=== PATIENT | male | born 1960 | race Caucasian/White ===

== ENCOUNTER 2022-11-14 07:30 | Observation (INO) ==
[2022-11-14] MEDS ORDERED: ANCEF VIAL 1 GRAM ONE (07:38)
[2022-11-14] MEDS ORDERED: NS 100 ML IV 100 ML ONE (07:38)
[2022-11-14] MEDS ORDERED: LR 1,000 ML IV 1,000 ML IV ONE ×2 (07:38→09:40)
[2022-11-14] MEDS ORDERED: HEPARIN SODIUM IN D5W 75,000 UNITS/1,500 ML BAG ONE (07:43)
[2022-11-14] MEDS ORDERED: MARCAINE 0.5% ONE (07:43)
[2022-11-14] MEDS ORDERED: VERSED ONE (07:55)
[2022-11-14] MEDS ORDERED: FENTANYL VIAL INJ 250 mcg ONE (07:55)
[2022-11-14] MEDS ORDERED: QUELICIN (OR ANECTINE) ONE (07:56)
[2022-11-14] MEDS ORDERED: ZEMURON 100 MG VIAL ONE ×2 (07:56→10:59)
[2022-11-14] MEDS ORDERED: DIPRIVAN VIAL 20 ML ONE (07:56)
[2022-11-14] MEDS ORDERED: DUONEB 0.5 MG/3 MG (3 mL) NEB ONE (07:57)
[2022-11-14] MEDS ORDERED: HEPARIN SODIUM INJ 5000 UNITS ONE ×3 (07:58→11:39)
[2022-11-14] MEDS ORDERED: NS 500 ML IV 500 ML IV ONE (08:07)
[2022-11-14 08:11] VITALS: BMI 22.1
[2022-11-14] MEDS ORDERED: SUPRANE ONE (08:17)
[2022-11-14 08:28] LABS: BASOPHILS # (AUTO) 0.1 X10^3/uL (0.0-0.1); BASOPHILS % (AUTO) 0.8 % (0.2-1.0); EOSINOPHILS # (AUTO) 0.1 x10^3/uL (0.0-0.2); EOSINOPHILS % (AUTO) 1.9 % (0.9-2.9); HEMATOCRIT 36.8 % (42.0-54.0); HEMOGLOBIN 12.6 g/dL (13.5-18.0); LYMPHOCYTES # (AUTO) 3.7 X10^3/uL (1.3-2.9); LYMPHOCYTES % (AUTO) 50.6 % (21.0-51.0); MEAN CORPUSCULAR HEMOGLOBIN 32.2 pg (27.0-34.0); MEAN CORPUSCULAR HGB CONC 34.1 g/dL (33.0-35.0); MEAN CORPUSCULAR VOLUME 94.3 fL (80.0-100.0); MEAN PLATELET VOLUME 9.1 fL (7.4-11.0); MONOCYTES # (AUTO) 0.6 x10^3/uL (0.3-0.8); MONOCYTES % (AUTO) 8.4 % (0.0-13.0); NEUTROPHILS # (AUTO) 2.8 x10^3/uL (2.2-4.8); NEUTROPHILS % (AUTO) 38.3 % (42.0-75.0); RED CELL DISTRIBUTION WIDTH 15.4 % (11.6-16.5); WHITE BLOOD COUNT 7.3 X10^3/uL (3.6-10.0)
[2022-11-14 08:29] LABS: BLOOD UREA NITROGEN 12 mg/dL (7-18); CALCIUM 9.2 mg/dL (8.5-10.1); CARBON DIOXIDE 26.7 mmol/L (21-32); CHLORIDE 103 mmol/L (98-107); CREATININE 0.91 mg/dL (0.70-1.30); SODIUM 137 mmol/L (136-145); eGFR NON BLACK RACES > 60 (>60)
[2022-11-14 08:42] LABS: ALANINE AMINOTRANSFERASE 41 Units/L (12-78); ALBUMIN 3.8 g/dL (3.4-5.0); ALKALINE PHOSPHATASE 115 Units/L (46-116); ASPARTATE AMINO TRANSFERASE 35 Units/L (15-37); TOTAL PROTEIN 7.2 g/dL (6.4-8.2)
[2022-11-14] MEDS ORDERED: DILAUDID INJ ONE ×2 (09:44→13:58)
[2022-11-14] MEDS ORDERED: BRIDION ONE (12:04)
[2022-11-14] MEDS ORDERED: PROTAMINE SULFATE 50 MG VIAL ONE (12:19)
[2022-11-14] MEDS ORDERED: ZOFRAN INJ 4 MG VIAL ONE (12:36)
[2022-11-14] MEDS ORDERED: EPHEDRINE SULFATE INJ ONE (12:41)
[2022-11-14] MEDS ORDERED: BENADRYL INJ 50 MG VIAL IVP PRN (12:48)
[2022-11-14] MEDS ORDERED: ZOFRAN INJ 4 MG VIAL IVP PRN (12:48)
[2022-11-14] MEDS ORDERED: BARHEMSYS INJ IVP PRN (12:48)
[2022-11-14] MEDS ORDERED: REGLAN INJ 10 MG VIAL IVP PRN (12:48)
[2022-11-14] MEDS ORDERED: DILAUDID INJ IVP PRN ×2 (12:48→13:37)
--- NOTE | 2022-11-14 13:27 | OR.IMMED ---
IMMEDIATE POST-OP NOTE Immediate Post-Op Note Pre-Op Diagnosis: Severe aortic infrarenal stenosis Post-Op Diagnosis: same Procedure: B/l iliac stents to raise level of bifurcation. Description of Procedure: see operative summary Surgeon/Pharmacy Technician Trainee: Malathi Findings: Patient has had left iliac stent and right SFA atherectomy and drug coated balloon angioplasty recently. Noted on review of CTA by me to have 75% stenosis of the infrarenal aorta and b/l common ilac artery aneurysms. Planned aorto-biiliac endograft placement . In order to get enough room to open the gate for the contralateral iliac artery we would need to take the graft over and covering the left renal and planned chimney stent in the left renal artery from the left arm. Could easily get wire across the left renal artery but could not get it to stay despite multiple maneuvers. Opted to place two covered iliac stents resetting the iliac bifrcation and addressing the infrarenal aortic stenosis, Estimated Blood Loss: 600 cc Complications: none Post Hospital Plans and Medications: to floor for observation, check CBC later. Hopefully home tomorrow. Final Diagnosis: as above
[2022-11-14] MEDS ORDERED: REFLEX: PROVENTIL NEB & PulmiCORT NEB~ NEB SCH (13:45)
[2022-11-14] MEDS: LR 1,000 ML IV 1,000 ML IV SCH ×2 (14:00→21:05)
[2022-11-14] MEDS ORDERED: NS 1,000 ML IV 1,000 ML IV ONE (14:21)
[2022-11-14] MEDS ORDERED: NS 1,000 ML IV 1,000 ML ONE (14:23)
[2022-11-14 14:45] LABS: BASOPHILS % (AUTO) 0.3 % (0.2-1.0); EOSINOPHILS % (AUTO) 0.2 % (0.9-2.9); HEMATOCRIT 29.2 % (42.0-54.0); HEMOGLOBIN 9.9 g/dL (13.5-18.0); LYMPHOCYTES # (AUTO) 1.7 X10^3/uL (1.3-2.9); LYMPHOCYTES % (AUTO) 11.7 % (21.0-51.0); MEAN CORPUSCULAR HEMOGLOBIN 31.9 pg (27.0-34.0); MEAN CORPUSCULAR HGB CONC 33.8 g/dL (33.0-35.0); MEAN CORPUSCULAR VOLUME 94.4 fL (80.0-100.0); MEAN PLATELET VOLUME 8.3 fL (7.4-11.0); MONOCYTES # (AUTO) 0.7 x10^3/uL (0.3-0.8); MONOCYTES % (AUTO) 5.1 % (0.0-13.0); NEUTROPHILS # (AUTO) 11.7 x10^3/uL (2.2-4.8); NEUTROPHILS % (AUTO) 82.7 % (42.0-75.0); RED BLOOD COUNT 3.09 X10^6/uL (4.7-6.0); RED CELL DISTRIBUTION WIDTH 15.5 % (11.6-16.5); WHITE BLOOD COUNT 14.1 X10^3/uL (3.6-10.0)
[2022-11-14] MEDS: DUONEB 0.5 MG/3 MG (3 mL) NEB SCH ×2 (17:20→21:00)
[2022-11-14] MEDS: PERCOCET TAB 5/325 MG PO PRN (18:58)
[2022-11-14] MEDS: PULMICORT NEB TX 0.5 MG NEB SCH (21:00)
[2022-11-14] MEDS: XARELTO PO SCH (21:02)
[2022-11-14] MEDS: DILANTIN CAP 100 MG EXT REL PO SCH (21:02)
[2022-11-14] MEDS: VASOTEC TAB 5 MG PO SCH ×2 (21:03→21:04)
--- NOTE | 2022-11-15 01:55 | DR.OPNOTE ---
OP NOTE Pre-Op Diagnosis: 75 % infrarenal aortic stenosis, b/l common iliac artery aneurysms Post-Op Diagnosis: same Procedure Date Date Of Procedure: 11/14/22 Procedure: PROCEDURE: Diagnostic aortogram , selective catheterization of the left renal artery , bilateral common iliac artery stenting with covered stents NARRATIVE: The patient was taken to the operative suite and placed in the supine position. Both groins, the entire abdomen and left arm were prepped and draped in sterile fashion. General endotracheal anesthesia was induced .Time out for the procedure obtained. Vertical incision made in the right groin and dissection carried down to the common femoral artery which was dissected free sharply. Vessel loops placed around the common femoral artery , superficial femoral artery and profunda femoris arteries . A purse string of 5-0 Prolene placed in the right common femoral artery. Verticle incision made in the left groin and dissection carried down identifying the artery. Dissection carried out and vessels loops placed around the common femoral artery proximally, the superficial femoral and profunda femoris arteries on the left . Purse string suture of 5-0 Prolene suture placed in the common femoral artery on the left side. 16 gauge needle placed through the purse string site of the left common femoral artery and a 0.012 inch guide wire placed. Micro sheath placed over the guide wire into the left femoral artery . Small white guide wire exchanged for a 0.035 inch Advantage glide wire and the micro sheath exchanged for a 5 Fr sheath. Fluoroscopy revealed the guide wire going to a lateral branch off of the left femoral artery. I tried to get it back into the main branch of the iliac artery but was unsuccessful. At this point a purse string suture of 5-0 Prolene placed in the left profunda femoris and a 16 gauge needle placed through the purse string and a 0.012 guide wire placed . Micro sheath placed over this guidewire into the left profunda femoris artery into the left femoral artery . Small wire exchanged for a 0.035 inch Advantage glide wire and the micro sheath exchanged for a 5 Fr sheath . Fluoroscopy confirmed that the wire was within the left common femoral artery and into the aorta. Needle placed through the purse string suture on the right side and a 0.012 inch guide wire placed. Micro sheath placed over the guide wire and the small guide wire exchanged for a 0.035 inch Advantage glide wire and the micro sheath exchanged for a 5 Fr sheath . Patient given 5000 units of intravenous heparin. Additional 3000 units of heparin was given at one hour and again at the 2nd hour . Diagnostic aortogram performed demonstrating the common iliac artery aneurysms and both renal arteries which were marked on the screen. Ultrasound used to identify the left brachial artery above the elbow. The skin overlying it infiltrated with 0.5% Marcaine. Ultrasound used to guide puncture of the left brachial artery and a 0.012 inch guide wire placed . Incision made over the guide wire at the skin edge with a number 11 knife blade and micro sheath placed over the wire into the left brachial artery . The small wire exchange for a 0.035 inch Advantage glide wire and the micro sheath exchanged for a 5 Fr sheath. Fluoroscopy demonstrated the guide wire and guided it down the descending aorta. The 5 Fr sheath was exchanged for a 7 Fr destination sheath which was parked above the renal arteries. Using the 0.035 inch Advantage guidewire and a curved Gamaliel catheter we were able to get the wire in the left renal artery . We tried multiple times to remove the sheath and leave the wire or place the 7 FR sheath in the orifice of the left renal artery but the wire kept flipping out. This was despite multiple maneuvers and multiple attempts. At this point we elected to place bilateral iliac covered stents to resolve the majority of the distal aortic stenosis and cover the iliac artery aneurysms. We exchanged the guide wires in each groin with 0.035 inch Amplatz wires up each iliac artery . Over these wires we placed 16 mm x 16 mm by 93 mm covered Endurant covered stents and centered them above the law natural iliac bifurcation to create a new bifurcation. Both devices removed from the iliac arteries and exchanged over the wire for a 15 Iranian sheath in the right femoral artery and a 12 Fr sheath in the left femoral artery . Reliant balloons placed on each side over the wires and inflated simultaneously and sequentially. Omni catheter place up on the left side and aortogram showed excellent results with no leak. All wires removed . The right sheath was removed and the right common femoral artery clamped with an angled Debakey clamp and back bleeding controlled with the vessel loops. Purse sting suture tied in place . Clamp removed and there was no additional bleeding . The two sheaths on the left removed and the artery clamped and purse string sutures tied into place . Clamp removed and there was no additional bleeding. Both groins irrigated . Doppler demonstrated biphasic flow in each superficial femoral artery. Each groin incision closed with two running layers of 2- Vicryl suture and the skin on each side closed with skin valeri. The sheath in the left brachial artery removed and bleeding controlled with a tibial band to be sequentially deflated in the PACU. Patient extubated and taken to the PACU in good condition. Type of Anesthesia: General Anesthetic w/ETT Findings: 75 % stenosis infrarenal aortic stenosis, bilateral common iliac artery aneurysms. Initial plan was to perform aorto- biiliac endograft repair but in order to cover this aortic stenosis and open the gate for the contralateral iliac artery the endograft would have to be taken over the left renal artery and we were planning placement of "chimney" extension in the left renal artery extending superiorly . We could place a wire easily in the left renal artery but it kept flipping out of the artery despite multiple attempts and maneuvers . So, instead we placed two kissing iliac stents covering the bilateral iliac aneurysms and creating a new " iliac bifurcation" and resolved the majority of the infrarenal aortic stenosis. Type of Fluids Used:: Lactated Ringers Total Amount of Fluid Infused:: 1700 cc Urine output: 400 cc EBL: 600 cc Hardware: B/l iliac artery Medtronic [id number] mm covered stents Complications:: none Needle/Sponge Count:: correct Disposition/Condition: Pt. tolerated procedure without difficulty. Extubated in the OR and taken to PACU in stable condition.
[2022-11-15 05:19] LABS: BASOPHILS % (AUTO) 0.1 % (0.2-1.0); HEMATOCRIT 23.6 % (42.0-54.0); HEMOGLOBIN 8.2 g/dL (13.5-18.0); LYMPHOCYTES # (AUTO) 1.9 X10^3/uL (1.3-2.9); LYMPHOCYTES % (AUTO) 15.9 % (21.0-51.0); MEAN CORPUSCULAR HGB CONC 34.7 g/dL (33.0-35.0); MEAN CORPUSCULAR VOLUME 92.4 fL (80.0-100.0); MEAN PLATELET VOLUME 8.6 fL (7.4-11.0); MONOCYTES # (AUTO) 1.1 x10^3/uL (0.3-0.8); MONOCYTES % (AUTO) 9.1 % (0.0-13.0); NEUTROPHILS # (AUTO) 8.9 x10^3/uL (2.2-4.8); NEUTROPHILS % (AUTO) 74.9 % (42.0-75.0); RED BLOOD COUNT 2.56 X10^6/uL (4.7-6.0); RED CELL DISTRIBUTION WIDTH 15.3 % (11.6-16.5); WHITE BLOOD COUNT 11.9 X10^3/uL (3.6-10.0)
[2022-11-15] MEDS: LR 1,000 ML IV 1,000 ML IV SCH (05:47)
[2022-11-15] MEDS ORDERED: SYNTHROID 125 mcg TAB PO SCH (06:30)
[2022-11-15 08:33] VITALS: BP 95/57
[2022-11-15] MEDS ORDERED: LIPITOR TAB 40 MG PO SCH (09:00)
[2022-11-15] MEDS ORDERED: ASPIRIN EC 81 MG PO SCH (09:00)
[2022-11-15] MEDS: PULMICORT NEB TX 0.5 MG NEB SCH (09:26)
[2022-11-15] MEDS: DUONEB 0.5 MG/3 MG (3 mL) NEB SCH (09:26)
[2022-11-15] MEDS: VASOTEC TAB 5 MG PO SCH (10:15)
[2022-11-15] MEDS: XARELTO PO SCH (10:17)
[2022-11-15] MEDS: DILANTIN CAP 100 MG EXT REL PO SCH (10:17)
--- NOTE | 2022-11-15 10:39 | W.DIS.FURT ---
Summary of Discharge Discharge Summary of Date Date of Exam: 11/15/22 Admission Date Date of Admission: 11/14/22 Admission Diagnosis Hospital Course: 62 year old male with significant peripheral vascular disease who had left common iliac stenting of complete left common iliac occlusion and right superficial femoral atherectomy and drug coated balloon angioplasty of the right superficial femoral artery . These were done prior to approaching his severe, 75% stenosis of the distal infrarenal aorta.. Yesterday he was taken to the operating suite where he underwent bilateral kissing covered iliac artery stents placed in order to resolve the distal aortic stenosis. See the operative summary for details. He has done well. Both feet are warm. Incision in each groin are covered with a antibiotic dressing and will be removed in 7 days. There is no bleeding or fullness either groin . He will be discharged home at this time on his usual medications to include Xarelto 2.5 mg PO BID and aspirin 81 mg PO q day. He will be given a prescription for Percocet, 5 mg tablets, one every six hours PRN pain He will follow up with me in one week. Vital Signs: Vital Signs (72 hours) 11/14/22 07:59 11/14/22 08:17 11/14/22 09:44 Temperature 97.7 F Pulse Rate 79 Pulse Rate [Right Radial] Respiratory Rate 18 20 Blood Pressure 120/76 Blood Pressure [Right Arm] O2 Sat by Pulse Oximetry 97 Oxygen Delivery Method Room Air Room Air Oxygen Flow Rate FIO2% 11/14/22 12:55 11/14/22 12:45 11/14/22 13:05 Temperature 97.4 F L 97.4 F L 97.5 F L Pulse Rate 77 79 75 Pulse Rate [Right Radial] Respiratory Rate 18 18 18 Blood Pressure 116/72 112/68 132/75 Blood Pressure [Right Arm] O2 Sat by Pulse Oximetry 100 Oxygen Delivery Method Aerosol Face Tent Oxygen Flow Rate FIO2% 11/14/22 13:05 11/14/22 13:10 11/14/22 13:15 Temperature 97.5 F L Pulse Rate 73 79 80 Pulse Rate [Right Radial] Respiratory Rate 18 18 18 Blood Pressure 132/75 103/71 103/71 Blood Pressure [Right Arm] O2 Sat by Pulse Oximetry 100 98 Oxygen Delivery Method Nasal Cannula Nasal Cannula Oxygen Flow Rate FIO2% 11/14/22 13:15 11/14/22 13:20 11/14/22 12:50 Temperature Pulse Rate 78 78 77 Pulse Rate [Right Radial] Respiratory Rate 18 18 18 Blood Pressure 115/72 106/67 115/69 Blood Pressure [Right Arm] O2 Sat by Pulse Oximetry 99 99 100 Oxygen Delivery Method Nasal Cannula Nasal Cannula Aerosol Face Tent Oxygen Flow Rate FIO2% 11/14/22 12:55 11/14/22 13:00 11/14/22 13:35 Temperature 97.6 F Pulse Rate 75 75 Pulse Rate [Right Radial] 82 Respiratory Rate 18 18 18 Blood Pressure 120/70 123/74 Blood Pressure [Right Arm] 107/67 O2 Sat by Pulse Oximetry 100 100 97 Oxygen Delivery Method Aerosol Face Tent Aerosol Face Tent Room Air Oxygen Flow Rate FIO2% 11/14/22 14:01 11/14/22 14:05 11/14/22 14:28 Temperature 97.9 F Pulse Rate Pulse Rate [Right Radial] 90 Respiratory Rate 18 18 Blood Pressure Blood Pressure [Right Arm] 107/67 O2 Sat by Pulse Oximetry 98 Oxygen Delivery Method Nasal Cannula Nasal Cannula Oxygen Flow Rate 2 2 FIO2% 28 11/14/22 13:50 11/14/22 14:20 11/14/22 14:35 Temperature 97.9 F 97.8 F 98.8 F Pulse Rate Pulse Rate [Right Radial] 90 86 78 Respiratory Rate 18 18 18 Blood Pressure Blood Pressure [Right Arm] 107/67 70/52 127/62 O2 Sat by Pulse Oximetry 98 92 L 98 Oxygen Delivery Method Nasal Cannula Nasal Cannula Nasal Cannula Oxygen Flow Rate 2 2 2 FIO2% 11/14/22 15:35 11/14/22 14:35 11/14/22 16:00 Temperature 97.9 F 98.1 F Pulse Rate Pulse Rate [Right Radial] 83 62 Respiratory Rate 18 18 18 Blood Pressure Blood Pressure [Right Arm] 124/73 118/62 O2 Sat by Pulse Oximetry 100 100 Oxygen Delivery Method Nasal Cannula Nasal Cannula Oxygen Flow Rate 2 2 FIO2% 11/14/22 17:20 11/14/22 18:37 11/14/22 18:58 Temperature 98.1 F Pulse Rate 62 Pulse Rate [Right Radial] 80 Respiratory Rate 18 18 Blood Pressure Blood Pressure [Right Arm] 112/56 O2 Sat by Pulse Oximetry 100 96 Oxygen Delivery Method Nasal Cannula Oxygen Flow Rate 2 FIO2% 11/14/22 19:44 11/14/22 19:58 11/14/22 19:00 Temperature 98.5 F Pulse Rate Pulse Rate [Right Radial] 91 H Respiratory Rate 20 18 Blood Pressure Blood Pressure [Right Arm] 103/63 O2 Sat by Pulse Oximetry 97 Oxygen Delivery Method Nasal Cannula Room Air Oxygen Flow Rate 2 FIO2% 11/14/22 23:52 11/14/22 21:00 11/15/22 00:00 Temperature 99.0 F Pulse Rate 78 Pulse Rate [Right Radial] 90 Respiratory Rate 20 Blood Pressure Blood Pressure [Right Arm] 104/64 O2 Sat by Pulse Oximetry 90 L 97 Oxygen Delivery Method Nasal Cannula Nasal Cannula Oxygen Flow Rate 2 2 FIO2% 28 11/15/22 03:52 11/15/22 08:00 11/15/22 07:00 Temperature 99.5 F 99.4 F Pulse Rate Pulse Rate [Right Radial] 86 88 Respiratory Rate 20 18 Blood Pressure Blood Pressure [Right Arm] 102/63 95/57 O2 Sat by Pulse Oximetry 97 96 Oxygen Delivery Method Nasal Cannula Nasal Cannula Room Air Oxygen Flow Rate 2 2 FIO2% Labs: Laboratory Last Values WBC 11.9 X10^3/uL (3.6-10.0) H 11/15/22 04:42 RBC 2.56 X10^6/uL (4.7-6.0) L 11/15/22 04:42 Hgb 8.2 g/dL (13.5-18.0) L 11/15/22 04:42 Hct 23.6 % (42.0-54.0) L 11/15/22 04:42 MCV 92.4 fL (80.0-100.0) 11/15/22 04:42 MCH 32.0 pg (27.0-34.0) 11/15/22 04:42 MCHC 34.7 g/dL (33.0-35.0) 11/15/22 04:42 RDW 15.3 % (11.6-16.5) 11/15/22 04:42 Plt Count 91 X10^3/uL (150.0-450.0) L 11/15/22 04:42 MPV 8.6 fL (7.4-11.0) 11/15/22 04:42 Neut % (Auto) 74.9 % (42.0-75.0) 11/15/22 04:42 Lymph % (Auto) 15.9 % (21.0-51.0) L 11/15/22 04:42 Hill % (Auto) 9.1 % (0.0-13.0) 11/15/22 04:42 Eos % (Auto) 0.0 % (0.9-2.9) L 11/15/22 04:42 Baso % (Auto) 0.1 % (0.2-1.0) L 11/15/22 04:42 Neut # (Auto) 8.9 x10^3/uL (2.2-4.8) H 11/15/22 04:42 Lymph # (Auto) 1.9 X10^3/uL (1.3-2.9) 11/15/22 04:42 Hill # (Auto) 1.1 x10^3/uL (0.3-0.8) H 11/15/22 04:42 Eos # (Auto) 0.0 x10^3/uL (0.0-0.2) 11/15/22 04:42 Baso # (Auto) 0.0 X10^3/uL (0.0-0.1) 11/15/22 04:42 Absolute Nucleated RBC 0.0 /100WBC 11/15/22 04:42 Sodium 137 mmol/L (136-145) 11/14/22 08:00 Corrected Sodium TNP 11/14/22 08:00 Potassium 4.2 mmol/L (3.5-5.1) 11/14/22 08:00 Chloride 103 mmol/L (98-107) 11/14/22 08:00 Carbon Dioxide 26.7 mmol/L (21-32) 11/14/22 08:00 BUN 12 mg/dL (7-18) 11/14/22 08:00 Creatinine 0.91 mg/dL (0.70-1.30) 11/14/22 08:00 Est GFR (MDRD) Af Amer > 60 (>60) 11/14/22 08:00 Est GFR (MDRD) Non-Af > 60 (>60) 11/14/22 08:00 Glucose 105 mg/dL (65-99) H 11/14/22 08:00 POC Glucose (mg/dL) 122 mg/dL (65-99) H 11/14/22 17:03 Calcium 9.2 mg/dL (8.5-10.1) 11/14/22 08:00 Corrected Calcium TNP 11/14/22 08:00 Total Bilirubin 0.30 mg/dL (0.2-1.0) 11/14/22 08:00 AST 35 Units/L (15-37) 11/14/22 08:00 ALT 41 Units/L (12-78) 11/14/22 08:00 Alkaline Phosphatase 115 Units/L (46-116) 11/14/22 08:00 Total Protein 7.2 g/dL (6.4-8.2) 11/14/22 08:00 Albumin 3.8 g/dL (3.4-5.0) 11/14/22 08:00 Globulin 3.4 g/dL (2.5-4.5) 11/14/22 08:00 Albumin/Globulin Ratio 1.1 Ratio (1.1-2.1) 11/14/22 08:00 Blood Type Cancelled 11/14/22 08:07 Antibody Screen Cancelled 11/14/22 08:07 Crossmatch See Detail 11/14/22 08:07 Reason For Visit: AORTO-ILIAC OCCLUSION Discharge Date Discharge Date: 11/15/22 Discharge Diagnosis All Active Problems (Updated 11/14/22 @ 13:38 by Ray Servin) Aortoiliac occlusive disease (Acute) Plan of Treatment: Continue with present treatment and follow up plan. Pt is to keep follow up appointment as instructed and take medications as ordered. Discharge Medications Discharge Medications: aspirin Allergy (Unknown, Verified 03/12/13 11:42) chocolate flavor Adverse Reaction (Verified 09/01/22 06:36) RASH tomato Adverse Reaction (Verified 09/01/22 06:36) RASH Tomatoes Allergy (Unknown, Uncoded 03/12/13 11:54) CONTINUE taking the following medications aspirin 81 mg chewable tablet 81 mg PO QDAY 11/14/22 [History] rivaroxaban 2.5 mg tablet (Xarelto) 2.5 mg PO BID 11/14/22 [History] New Prescriptions oxycodone-acetaminophen 5 mg-325 mg tablet (Percocet) 1 tab PO Q6H PRN #30 tabs 11/15/22 [Rx] Discharge Disposition Assessment: See hospital course above Discharge Plan Discharge Plan Hospital Course: 62 year old male with significant peripheral vascular disease who had left common iliac stenting of complete left common iliac occlusion and right superficial femoral atherectomy and drug coated balloon angioplasty of the right superficial femoral artery . These were done prior to approaching his severe, 75% stenosis of the distal infrarenal aorta.. Yesterday he was taken to the operating suite where he underwent bilateral kissing covered iliac artery stents placed in order to resolve the distal aortic stenosis. See the operative summary for details. He has done well. Both feet are warm. Incision in each groin are covered with a antibiotic dressing and will be removed in 7 days. There is no bleeding or fullness either groin . He will be discharged home at this time on his usual medications to include Xarelto 2.5 mg PO BID and aspirin 81 mg PO q day. He will be given a prescription for Percocet, 5 mg tablets, one every six hours PRN pain He will follow up with me in one week. Patient Disposition: 01 HOME, SELF-CARE Condition: Stable Health Concerns: Post Hospitalization: new medications and changes needed to prevent readmission or further decline. Pt educated and given instructions on all concerns. Care Plan Goals: Problem: Pain/Alteration in Comfort Goal: Improve/ Resolve Pain; Achieve Pain Tolerance Instructions: Take pain medications as prescribed. Contact your primary care provider if your pain is unrelieved or worsens. Follow up with primary care provider as directed. Plan of Treatment: Continue with present treatment and follow up plan. Pt is to keep follow up appointment as instructed and take medications as ordered. Assessment: See hospital course above Prescription drug monitoring program results: PDMP reviewed and no concerns identified Prescriptions: New oxycodone-acetaminophen [Percocet] 5-325 mg tablet 1 tab PO Q6H MDD 4 PRNQty: 30 0RF Continued phenytoin sodium extended [Dilantin Extended] 100 mg capsule 100 mg PO BID MDD 4 30 Days Qty: 120 2RF Rx Instructions: 2 caps BID atorvastatin 40 mg Tablet 40 mg PO QDAY enalapril maleate 5 mg Tablet 5 mg PO BID levothyroxine [Synthroid] 125 mcg Tablet 250 mcg PO QDAY nitroglycerin [Nitrostat] 0.4 mg Tablet, Sublingual 0.4 mg SUBLINGUAL ONCE PRN Rx Instructions: as a single dose; administer 5-10 minutes before situation known to precipitate angina attack Trelegy Ellipta 100-62.5-25 mcg Blister With Device 1 inh INHALATION QDAY diclofenac sodium 100 mg Tablet Extended Release 24 Hr 100 mg PO DAILY PRN aspirin 81 mg Tablet,Chewable 81 mg PO QDAY Xarelto 2.5 mg Tablet 2.5 mg PO BID Orders to Discharge Patient Discharge Orders: Discharge (Routine); Ordered 11/15/22 Ordered By: Ray Servin Follow ups/Referrals Follow ups/Referrals: Ray Servin [STAFF PHYSICIAN] - 1 WEEK Instructions Instructions: Angiogram Stand Alone Forms: Excuse From Work or School
[2022-11-15] MEDS: PERCOCET TAB 5/325 MG PO PRN (11:11)
== END 2022-11-15 12:00 | disposition home or self-care (01) ==
LOC: MED/SURG
PROVIDERS: ADMIT Surgery; ATTEND Surgery
DX: I10 Essential (primary) hypertension; I25.10 Atherosclerotic heart disease of native coronary artery without angina pectoris; E03.8 Other specified hypothyroidism; I74.09 Other arterial embolism and thrombosis of abdominal aorta; I70.1 Atherosclerosis of renal artery; K21.9 Gastro-esophageal reflux disease without esophagitis

== ENCOUNTER 2022-12-08 17:59 | Inpatient (IN) ==
--- NOTE | 2022-12-08 18:22 | DR.GENAD ---
HPI Time Seen Time Seen by Provider: 12/08/22 18:21 PCP Primary Care Physician: dane lee Complaint/Symptoms Chief Complaint Doctors Comments: 62 y/o male brought in via EMS. Was seen in his surgeon's office today. Had incision and drainage of R groin region (had stents placed 12/02, with reportedly secondary infection). Pt went home, got into shower, started bleeding heavily from the R groing region. Pt is on Xarelto. Bleeding currently controlled with a dressing. Denies fever, chills, URI symptoms, bowel or bladder issues. + was lightheaded earlier, BP a bit low on EMS arrival. Given IV fluids by EMS. BP better on arrival. Chief Complaint:: pt called ems. pt states he seen pcp in office and lanced his right groin(pt was previously seen for stenting, and bilateral groins were infected) pt got home and right groin began to bleed. pt son applied pressure to slow bleeding. COVID-19 Coronavirus risk:travel/contact w/high risk person: No Has patient experienced Coronavirus symptoms: No Source History Provided: Patient Mode of Arrival Mode of Arrival: Stretcher Timing Onset of Chief Complaint: 12/08/22 PMH PMH Past Medical History: Yes Past Medical History Comment: peptic ulcers. Past Surgical History: Yes Surgical History: Angioplasty/Stents, Cholecystectomy and Ortho Surgery Past Surgical History Comment: ekos,right foot Family History History of Family Medical Conditions: Yes Family Medical History: Hypertension Social History Does patient currently use any type of tobacco product: No Have you used tobacco products in the last 12 months: Yes Type of Tobacco Use: Cigarettes Does any household member use tobacco: No Alcohol Use: None Do you use any recreational Drugs:: No Lives With: Family Lives Where: Home Travel Risk Coronavirus risk:travel/contact w/high risk person: No Has patient experienced Coronavirus symptoms: No Infectious screening In the last 2 months have you had wt loss of >10#?: NO Have you had fever, night sweats or hemotysis?: No Have you traveled outside the country in the last 6 months?: No Isolation: Standard ROS Review of Systems Constitutional: No Symptoms Reported Eyes: No Symptoms Reported ENTM: No Symptoms Reported Respiratoy: No Symptoms Reported Cardiovascular: No Symptoms Reported Gastrointestinal/Abdominal: No Symptoms Reported Genitourinary: No Symptoms Reported Neurological: No Symptoms Reported Musculoskeletal: No Symptoms Reported Integumentary: No Symptoms Reported All Other Systems: Reviewed and Negative PE Vital Signs Vitals: Temperature 98.5 F Pulse Rate [Right Radial] 88 Pulse Rate 90 Respiratory Rate 20 Blood Pressure [Right Arm] 110/70 Blood Pressure 108/71 O2 Sat by Pulse Oximetry 99 General General Appearance: Alert and In No Apparent Distress Eyes Eye exam: PERRL and EOMI ENT ENT Exam: Mucous Membranes Moist Neck Neck Exam: Normal Inspection Respiratory Respiratory Exam: Normal Lung Sounds Bilat; negative Accessory Muscle Use or Respiratory Distress Cardiovascular Cardiovascular Exam: Regular Rate, Normal Rhythm and Normal Heart Sounds Abdominal Exam Abdominal Exam: Soft; negative Tenderness Extremities Extremities Exam: negative Edema Neurologic Neurological Exam: Alert, Oriented X3 and CN II-XII Intact; negative Motor Sensory Deficit Skin Skin Exam: Warm and Dry Other Exam Other Exam: R groin - has small incision of R groin, not actively bleeding. 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 Had an I & D earlier today. + lg amount of dried blodd around soaked dresisng, not actively bleeding on arrival. Given IV fluids, will check baseline labs. 1909 - Current Hgb 8.4 (last Hgb was 7.9). Na 128, K+ 3.1. Dr Servin notified, coming to hospital for another pt, he will see the pt in the ER. Dr Servin came and evaluated the pt. He will admit the pt. ROR Labs Reviewed Laboratory Results Reviewed?: Yes Result Diagrams: 12/08/22 22:58 12/08/22 18:42 Laboratory: WBC 12.9 X10^3/uL (3.6-10.0) H 12/08/22 18:42 RBC 2.73 X10^6/uL (4.7-6.0) L 12/08/22 18:42 Hgb 8.4 g/dL (13.5-18.0) L 12/08/22 18:42 Hct 24.9 % (42.0-54.0) L 12/08/22 18:42 MCV 91.4 fL (80.0-100.0) 12/08/22 18:42 MCH 30.6 pg (27.0-34.0) 12/08/22 18:42 MCHC 33.5 g/dL (33.0-35.0) 12/08/22 18:42 RDW 17.2 % (11.6-16.5) H 12/08/22 18:42 Plt Count 279 X10^3/uL (150.0-450.0) 12/08/22 18:42 MPV 7.9 fL (7.4-11.0) 12/08/22 18:42 Neut % (Auto) 81.9 % (42.0-75.0) H 12/08/22 18:42 Lymph % (Auto) 10.2 % (21.0-51.0) L 12/08/22 18:42 [place] % (Auto) 7.0 % (0.0-13.0) 12/08/22 18:42 Eos % (Auto) 0.0 % (0.9-2.9) L 12/08/22 18:42 Baso % (Auto) 0.9 % (0.2-1.0) 12/08/22 18:42 Neut # (Auto) 10.6 x10^3/uL (2.2-4.8) H 12/08/22 18:42 Lymph # (Auto) 1.3 X10^3/uL (1.3-2.9) 12/08/22 18:42 [place] # (Auto) 0.9 x10^3/uL (0.3-0.8) H 12/08/22 18:42 Eos # (Auto) 0.0 x10^3/uL (0.0-0.2) 12/08/22 18:42 Baso # (Auto) 0.1 X10^3/uL (0.0-0.1) 12/08/22 18:42 Absolute Nucleated RBC 0.0 /100WBC 12/08/22 18:42 PT 15.6 SECONDS (11.8-14.3) 12/08/22 18:42 INR Target Range - 12/08/22 18: INR 1.28 (0.8-1.3) 12/08/22 18:42 APTT 26.0 SECONDS (22.9-36.5) 12/08/22 18:42 PTT Comment - 12/08/22 18: Sodium 128 mmol/L (136-145) L 12/08/22 18:42 Corrected Sodium TNP 12/08/22 18:42 Potassium 4.8 mmol/L (3.5-5.1) 12/08/22 18:42 Chloride 93 mmol/L (98-107) L 12/08/22 18:42 Carbon Dioxide 25.2 mmol/L (21-32) 12/08/22 18:42 BUN 13 mg/dL (7-18) 12/08/22 18:42 Creatinine 0.84 mg/dL (0.70-1.30) 12/08/22 18:42 Est GFR (MDRD) Af Amer > 60 (>60) 12/08/22 18:42 Est GFR (MDRD) Non-Af > 60 (>60) 12/08/22 18:42 Glucose 105 mg/dL (65-99) H 12/08/22 18:42 Calcium 8.2 mg/dL (8.5-10.1) L 12/08/22 18:42 Corrected Calcium 9.2 mg/dL (8.5-10.1) 12/08/22 18:42 Total Bilirubin 0.20 mg/dL (0.2-1.0) 12/08/22 18:42 AST 57 Units/L (15-37) H 12/08/22 18:42 ALT 89 Units/L (12-78) H 12/08/22 18:42 Alkaline Phosphatase 238 Units/L (46-116) H 12/08/22 18:42 Total Protein 7.3 g/dL (6.4-8.2) 12/08/22 18:42 Albumin 2.7 g/dL (3.4-5.0) L 12/08/22 18:42 Globulin 4.6 g/dL (2.5-4.5) H 12/08/22 18:42 Albumin/Globulin Ratio 0.6 Ratio (1.1-2.1) L 12/08/22 18:42 Blood Type A POSITIVE 12/08/22 20:00 Antibody Screen Negative 12/08/22 20:00 Crossmatch See Detail 12/08/22 20:00 Hgb 8.4 (last one 7.9). K+ 3.1. Na 128. Opioid Opioid Risk Tool Age (Rodney box if 16-45): No History of Preadolescent Sexual Abuse: No Total: 0 Total Score Risk Category: Low Risk Copyright: Kehinde OSMAN predicting aberrant behaviors Discharge Plan Diagnosis Discharge Problem: Acute hyponatremia, Hematoma following procedure Discharge Plan Patient Disposition: 09 ADMITTED INPATIENT Condition: Stable
[2022-12-08] MEDS ORDERED: DILAUDID INJ IVP ONE (18:26)
[2022-12-08] MEDS ORDERED: NS 1,000 ML IV 1,000 ML IV ONE (18:26)
[2022-12-08 18:54] LABS: BASOPHILS # (AUTO) 0.1 X10^3/uL (0.0-0.1); LYMPHOCYTES # (AUTO) 1.3 X10^3/uL (1.3-2.9); MEAN CORPUSCULAR HGB CONC 33.5 g/dL (33.0-35.0); MEAN PLATELET VOLUME 7.9 fL (7.4-11.0)
[2022-12-08 18:58] LABS: BASOPHILS % (AUTO) 0.9 % (0.2-1.0); HEMATOCRIT 24.9 % (42.0-54.0); HEMOGLOBIN 8.4 g/dL (13.5-18.0); INR 1.28 (0.8-1.3); LYMPHOCYTES % (AUTO) 10.2 % (21.0-51.0); MEAN CORPUSCULAR HEMOGLOBIN 30.6 pg (27.0-34.0); MEAN CORPUSCULAR VOLUME 91.4 fL (80.0-100.0); MONOCYTES # (AUTO) 0.9 x10^3/uL (0.3-0.8); NEUTROPHILS # (AUTO) 10.6 x10^3/uL (2.2-4.8); NEUTROPHILS % (AUTO) 81.9 % (42.0-75.0); RED BLOOD COUNT 2.73 X10^6/uL (4.7-6.0); RED CELL DISTRIBUTION WIDTH 17.2 % (11.6-16.5); WHITE BLOOD COUNT 12.9 X10^3/uL (3.6-10.0)
[2022-12-08 19:05] LABS: ALANINE AMINOTRANSFERASE 89 Units/L (12-78); ALBUMIN 2.7 g/dL (3.4-5.0); ALKALINE PHOSPHATASE 238 Units/L (46-116); ASPARTATE AMINO TRANSFERASE 57 Units/L (15-37); BLOOD UREA NITROGEN 13 mg/dL (7-18); CALCIUM 8.2 mg/dL (8.5-10.1); CARBON DIOXIDE 25.2 mmol/L (21-32); CHLORIDE 93 mmol/L (98-107); COR CA(FOR HYPOALB) 9.2 mg/dL (8.5-10.1); CREATININE 0.84 mg/dL (0.70-1.30); SODIUM 128 mmol/L (136-145); TOTAL PROTEIN 7.3 g/dL (6.4-8.2); eGFR NON BLACK RACES > 60 (>60)
[2022-12-08] MEDS ORDERED: AQUA MEPHYTON ADULT IV ONE (20:39)
[2022-12-08] MEDS ORDERED: NS IV ONE (20:39)
[2022-12-08] MEDS ORDERED: NS IV SCH (21:00)
[2022-12-08] MEDS ORDERED: AQUA MEPHYTON ADULT IV SCH (21:00)
[2022-12-08] MEDS ORDERED: PROVENTIL NEB TX 0.083% 2.5MG/ 3ML NEB PRN (21:22)
[2022-12-08 21:33] VITALS: BMI 21.7
[2022-12-08] MEDS ORDERED: D5 NS 1,000 ML IV 1,000 ML IV ONE (21:46)
[2022-12-08] MEDS ORDERED: DILANTIN CAP 100 MG EXT REL PO ONE ×2 (21:49→22:15)
[2022-12-08] MEDS: D5 NS 1,000 ML IV 1,000 ML IV SCH (21:51)
--- NOTE | 2022-12-08 22:33 | DR.H&P ---
H&P History & Physical for Day of: H&P Date: 12/08/22 Chief Complaint Chief Complaint: Bleeding from right groin hematoma Allergies Allergies Allergy/AdvReac Type Severity Reaction Status Date / Time aspirin Allergy Unknown Verified 12/08/22 09:57 chocolate flavor AdvReac RASH Verified 12/08/22 09:57 tomato AdvReac RASH Verified 12/08/22 09:57 Tomatoes Allergy Unknown Uncoded 03/12/13 11:54 History of Present Illness History of Present Illness: This 62 year old male with significant peripheral vascular disease and smoking history who over the last four months has had left iliac stenting for complete iliac occlusion, right superficial femoral artery a therectomy and drug coated balloon angioplasty, infrarenal aortic stenting of 75% stenosis two weeks ago who had readmission last week for thrombosis of the right external iliac artery / right common femoral artery with severe stenosis of the just the right superficial femoral artery at the site of the atherectomy of the previous complete total occlusion requiring angioplasty of the right ext ernal iliac artery and the right common femoral artery and stenting of the right distal superficial femoral artery and overnight thrombolysis. At that time also treated for cellulitis of both groins and he was discharged home last week on PO antibiotics. He was seen in the office yesterday and both groins healed and valeri removed. He returned to the office today with small amount of bloody drainage from the right groin and evidence of a hematoma which was opened in the office and appeared to be all venous and clot and was evacuated and packed lightly. He went home and had further bleeding and brought to the ER. Hemoglobin is 8.4 where it has been over the last several months. Patient to be admitted for observation and evaluation of this to rule out arterial or venous bleeding. Will plan to stop his Xarelto and aspirin. Past Medical History Past Medical History: Arthritis, COPD, Coronary Artery Disease, Dyslipidemia, GERD, Hypertension, Hypothyroidism and Seizures Past Surgical History Surgical History: Angioplasty/Stents, Bowel Resection (history of resection for colon cancer), Cholecystectomy and Other (arterial surgeries as above ) Family History Family Medical History: Hypertension Social History Does patient currently use any type of tobacco product: No Have you used tobacco products in the last 12 months: Yes Type of Tobacco Use: Cigarettes How many years tobacco product used: 55 Does any household member use tobacco: No Alcohol Use: None Drug Use: None Medications Home Medications: aspirin Allergy (Unknown, Verified 12/08/22 09:57) chocolate flavor Adverse Reaction (Verified 12/08/22 09:57) RASH tomato Adverse Reaction (Verified 12/08/22 09:57) RASH Tomatoes Allergy (Unknown, Uncoded 03/12/13 11:54) Labs Result Diagrams: 12/08/22 18:42 12/08/22 18:42 Labs: Laboratory WBC 12.9 X10^3/uL (3.6-10.0) H 12/08/22 18:42 RBC 2.73 X10^6/uL (4.7-6.0) L 12/08/22 18:42 Hgb 8.4 g/dL (13.5-18.0) L 12/08/22 18:42 Hct 24.9 % (42.0-54.0) L 12/08/22 18:42 MCV 91.4 fL (80.0-100.0) 12/08/22 18:42 MCH 30.6 pg (27.0-34.0) 12/08/22 18:42 MCHC 33.5 g/dL (33.0-35.0) 12/08/22 18:42 RDW 17.2 % (11.6-16.5) H 12/08/22 18:42 Plt Count 279 X10^3/uL (150.0-450.0) 12/08/22 18:42 MPV 7.9 fL (7.4-11.0) 12/08/22 18:42 Neut % (Auto) 81.9 % (42.0-75.0) H 12/08/22 18:42 Lymph % (Auto) 10.2 % (21.0-51.0) L 12/08/22 18:42 [place] % (Auto) 7.0 % (0.0-13.0) 12/08/22 18:42 Eos % (Auto) 0.0 % (0.9-2.9) L 12/08/22 18:42 Baso % (Auto) 0.9 % (0.2-1.0) 12/08/22 18:42 Neut # (Auto) 10.6 x10^3/uL (2.2-4.8) H 12/08/22 18:42 Lymph # (Auto) 1.3 X10^3/uL (1.3-2.9) 12/08/22 18:42 [place] # (Auto) 0.9 x10^3/uL (0.3-0.8) H 12/08/22 18:42 Eos # (Auto) 0.0 x10^3/uL (0.0-0.2) 12/08/22 18:42 Baso # (Auto) 0.1 X10^3/uL (0.0-0.1) 12/08/22 18:42 Absolute Nucleated RBC 0.0 /100WBC 12/08/22 18:42 PT 15.6 SECONDS (11.8-14.3) 12/08/22 18:42 INR Target Range - 12/08/22 18:42 INR 1.28 (0.8-1.3) 12/08/22 18:42 APTT 26.0 SECONDS (22.9-36.5) 12/08/22 18:42 PTT Comment - 12/08/22 18:42 Sodium 128 mmol/L (136-145) L 12/08/22 18:42 Corrected Sodium TNP 12/08/22 18:42 Potassium 4.8 mmol/L (3.5-5.1) 12/08/22 18:42 Chloride 93 mmol/L (98-107) L 12/08/22 18:42 Carbon Dioxide 25.2 mmol/L (21-32) 12/08/22 18:42 BUN 13 mg/dL (7-18) 12/08/22 18:42 Creatinine 0.84 mg/dL (0.70-1.30) 12/08/22 18:42 Est GFR (MDRD) Af Amer > 60 (>60) 12/08/22 18:42 Est GFR (MDRD) Non-Af > 60 (>60) 12/08/22 18:42 Glucose 105 mg/dL (65-99) H 12/08/22 18:42 Calcium 8.2 mg/dL (8.5-10.1) L 12/08/22 18:42 Corrected Calcium 9.2 mg/dL (8.5-10.1) 12/08/22 18:42 Total Bilirubin 0.20 mg/dL (0.2-1.0) 12/08/22 18:42 AST 57 Units/L (15-37) H 12/08/22 18:42 ALT 89 Units/L (12-78) H 12/08/22 18:42 Alkaline Phosphatase 238 Units/L (46-116) H 12/08/22 18:42 Total Protein 7.3 g/dL (6.4-8.2) 12/08/22 18:42 Albumin 2.7 g/dL (3.4-5.0) L 12/08/22 18:42 Globulin 4.6 g/dL (2.5-4.5) H 12/08/22 18:42 Albumin/Globulin Ratio 0.6 Ratio (1.1-2.1) L 12/08/22 18:42 Blood Type A POSITIVE 12/08/22 20:00 Antibody Screen Negative 12/08/22 20:00 Crossmatch See Detail 12/08/22 20:00 Review of Systems Constitutional: See HPI Eyes: No Symptoms Reported ENT: No Symptoms Reported Respiratory: See HPI Cardiovascular: No Symptoms Reported Gastrointestinal: No Symptoms Reported Genitourinary: No Symptoms Reported Musculoskeletal: No Symptoms Reported Skin: No Symptoms Reported Neurological: No Symptoms Reported Physical Exam Vital Signs: Temperature 98.3 F Pulse Rate [Right Radial] 91 Pulse Rate 91 Respiratory Rate 17 Blood Pressure [Right Arm] 96/65 Blood Pressure 103/57 O2 Sat by Pulse Oximetry 99 Oriented: Normal, Time, Person and Place Eyes: Normal Ear: Normal Nose: Normal Throat: Normal Respiratory: Clear Throughout Cardiovascular: Normal : Normal Auscultation: Bowel Sounds: Normal Palpation: Normal Skin: Other ( open wound right groin with bleeding controlled with pressure . Dressing applied ) Musculoskeletal: Normal Psychiatric: Normal Mood Description: Calm Affect: Quiet Speech Pattern: Clear Assessment/Plan (1) Hematoma following procedure: Status: Acute Plan: Will observe, serial CBC, have blood typed and crossed and available, Will need CTA. (2) At high risk for cardiovascular disease: Status: Acute (3) Critical limb ischemia of right lower extremity: Narrative Support Text: stable . Hold Xarelto and aspirun Status: Acute (4) Aortoiliac occlusive disease: Narrative Support Text: stable Status: Acute (5) Gastroesophageal reflux disease with esophagitis: Narrative Support Text: Treat with po Protonix Status: None (6) Hypertension: Narrative Support Text: PO Enalapril Status: None (7) Mild tobacco abuse: Narrative Support Text: Has stopped smoking Status: None (8) Seizure disorder: Status: None Plan: PO Dilantin (9) Primary osteoarthritis involving multiple joints: Status: None (10) Peripheral arterial disease: Narrative Support Text: Stable Status: Chronic (11) Other specified acquired hypothyroidism: Status: None Plan: PO synthroid (12) Dyslipidemia: Status: None Plan: Treat with PO Atorvastatin (13) Arteriosclerotic vascular disease: Status: None Plan: PO atorvastatin (14) Infection following a procedure, other surgical site, initial encounter: Status: Acute Plan: Treat with IV Zosyn (15) Draining postoperative wound: Narrative Support Text: See above Status: Acute Review H&P Reviewed: Yes Patient was examined?: Yes
[2022-12-08] MEDS ORDERED: ZOSYN VIAL 3.375 GRAMS IV ONE (22:40)
[2022-12-08] MEDS ORDERED: NS 100 ML IV 100 ML ONE (22:40)
[2022-12-08] MEDS: ZOSYN VIAL 3.375 GRAMS 3.375 G in NS 100 ML IV 100 ML IV SCH (22:46)
[2022-12-08 23:15] LABS: BASOPHILS # (AUTO) 0.1 X10^3/uL (0.0-0.1); BASOPHILS % (AUTO) 1.2 % (0.2-1.0); EOSINOPHILS % (AUTO) 0.1 % (0.9-2.9); HEMATOCRIT 22.4 % (42.0-54.0); HEMOGLOBIN 7.7 g/dL (13.5-18.0); LYMPHOCYTES # (AUTO) 1.8 X10^3/uL (1.3-2.9); LYMPHOCYTES % (AUTO) 17.4 % (21.0-51.0); MEAN CORPUSCULAR HEMOGLOBIN 31.2 pg (27.0-34.0); MEAN CORPUSCULAR HGB CONC 34.1 g/dL (33.0-35.0); MEAN CORPUSCULAR VOLUME 91.3 fL (80.0-100.0); MONOCYTES # (AUTO) 0.7 x10^3/uL (0.3-0.8); MONOCYTES % (AUTO) 7.2 % (0.0-13.0); NEUTROPHILS # (AUTO) 7.5 x10^3/uL (2.2-4.8); NEUTROPHILS % (AUTO) 74.1 % (42.0-75.0); RED BLOOD COUNT 2.46 X10^6/uL (4.7-6.0); RED CELL DISTRIBUTION WIDTH 17.3 % (11.6-16.5); WHITE BLOOD COUNT 10.2 X10^3/uL (3.6-10.0)
[2022-12-08] MEDS ORDERED: NS 250 ML IV 250 ML IV ONE (23:57)
[2022-12-09] MEDS ORDERED: SYNTHROID 125 mcg TAB ONE (04:08)
[2022-12-09] MEDS: D5 NS 1,000 ML IV 1,000 ML IV SCH ×3 (05:18→20:37)
[2022-12-09] MEDS ORDERED: NS 100 ML IV 100 ML ONE ×3 (05:45→20:42)
[2022-12-09] MEDS ORDERED: ZOSYN VIAL 3.375 GRAMS IV ONE ×3 (05:45→20:41)
[2022-12-09] MEDS: SYNTHROID 125 mcg TAB PO SCH (06:03)
[2022-12-09] MEDS: ZOSYN VIAL 3.375 GRAMS 3.375 G in NS 100 ML IV 100 ML IV SCH ×3 (06:03→22:12)
[2022-12-09 07:11] LABS: BASOPHILS # (AUTO) 0.1 X10^3/uL (0.0-0.1); BASOPHILS % (AUTO) 1.2 % (0.2-1.0); EOSINOPHILS % (AUTO) 0.1 % (0.9-2.9); HEMATOCRIT 29.1 % (42.0-54.0); LYMPHOCYTES # (AUTO) 1.7 X10^3/uL (1.3-2.9); LYMPHOCYTES % (AUTO) 18.4 % (21.0-51.0); MEAN CORPUSCULAR HEMOGLOBIN 30.5 pg (27.0-34.0); MEAN CORPUSCULAR HGB CONC 33.9 g/dL (33.0-35.0); MEAN PLATELET VOLUME 7.9 fL (7.4-11.0); MONOCYTES # (AUTO) 0.9 x10^3/uL (0.3-0.8); MONOCYTES % (AUTO) 9.2 % (0.0-13.0); NEUTROPHILS # (AUTO) 6.6 x10^3/uL (2.2-4.8); NEUTROPHILS % (AUTO) 71.1 % (42.0-75.0); RED BLOOD COUNT 3.23 X10^6/uL (4.7-6.0); RED CELL DISTRIBUTION WIDTH 16.9 % (11.6-16.5); WHITE BLOOD COUNT 9.3 X10^3/uL (3.6-10.0)
[2022-12-09 07:20] LABS: ALANINE AMINOTRANSFERASE 147 Units/L (12-78); ALBUMIN 2.3 g/dL (3.4-5.0); ALKALINE PHOSPHATASE 236 Units/L (46-116); ASPARTATE AMINO TRANSFERASE 118 Units/L (15-37); BLOOD UREA NITROGEN 9 mg/dL (7-18); CALCIUM 8.4 mg/dL (8.5-10.1); CARBON DIOXIDE 26.3 mmol/L (21-32); CHLORIDE 99 mmol/L (98-107); COR CA(FOR HYPOALB) 9.8 mg/dL (8.5-10.1); CREATININE 0.72 mg/dL (0.70-1.30); SODIUM 132 mmol/L (136-145); TOTAL PROTEIN 6.6 g/dL (6.4-8.2); eGFR NON BLACK RACES > 60 (>60)
[2022-12-09 07:25] LABS: HEMOGLOBIN 9.9 g/dL (13.5-18.0)
[2022-12-09] MEDS ORDERED: PROTONIX TAB 40 MG PO ONE (09:04)
[2022-12-09] MEDS ORDERED: VASOTEC TAB 5 MG ONE ×2 (09:04→20:18)
[2022-12-09] MEDS ORDERED: LIPITOR TAB 40 MG ONE (09:05)
[2022-12-09] MEDS: PROTONIX TAB 40 MG PO SCH (09:10)
[2022-12-09] MEDS: VASOTEC TAB 10 MG PO SCH ×2 (09:10→20:37)
[2022-12-09] MEDS: LIPITOR TAB 40 MG PO SCH (09:10)
[2022-12-09] MEDS ORDERED: PERCOCET TAB 5/325 MG ONE ×2 (10:31→20:18)
[2022-12-09] MEDS: PERCOCET TAB 5/325 MG PO PRN ×2 (10:34→20:35)
[2022-12-09] MEDS ORDERED: D5 NS 1,000 ML IV 1,000 ML IV ONE (12:11)
[2022-12-09] MEDS ORDERED: PROVENTIL NEB TX 0.083% 2.5MG/ 3ML ONE (19:19)
[2022-12-09] MEDS ORDERED: D5 1/2 NS 1,000 ML 1,000 ML IV ONE (20:19)
--- NOTE | 2022-12-09 20:52 | NOTE.SOAP ---
Soap Note Note for Day of Date of Exam: 12/09/22 Subjective Data Subjective Data: Patient with hematoma of right groin after multiple vascular interventions . No further bleeding. received 2 units PRBCs Patient started on clear liquid diet. Only bloody/ serous fluid from right groin wound consistent with resolving hematoma/ venous. Objective Data Temperature: 98.4 F Pulse Rate: 96 Respiratory Rate: 18 Blood Pressure: 97/64 O2 Sat by Pulse Oximetry: 96 Objective Data: As above.Open wound right groin with serosangunous drainage . Tissue around wound indurated but no hematoma. No pulsatile mass Assessment Assessment: Hematoma right groin old vascular arterial access incision. Plan Plan: Continue clear liquids and antibiotics . Gelfoam placed in right groin wound . Will plan for CTA on Monday. CBC in AM.
[2022-12-09] MEDS: DILANTIN CAP 100 MG EXT REL PO SCH (21:33)
[2022-12-10] MEDS: PERCOCET TAB 5/325 MG PO PRN ×4 (04:13→21:35)
[2022-12-10 05:04] LABS: BASOPHILS % (AUTO) 0.3 % (0.2-1.0); EOSINOPHILS % (AUTO) 0.4 % (0.9-2.9); HEMATOCRIT 28.3 % (42.0-54.0); HEMOGLOBIN 9.6 g/dL (13.5-18.0); LYMPHOCYTES # (AUTO) 2.2 X10^3/uL (1.3-2.9); MEAN CORPUSCULAR HEMOGLOBIN 30.8 pg (27.0-34.0); MEAN CORPUSCULAR VOLUME 90.6 fL (80.0-100.0); MONOCYTES # (AUTO) 0.9 x10^3/uL (0.3-0.8); MONOCYTES % (AUTO) 10.6 % (0.0-13.0); NEUTROPHILS # (AUTO) 5.5 x10^3/uL (2.2-4.8); NEUTROPHILS % (AUTO) 63.7 % (42.0-75.0); RED BLOOD COUNT 3.12 X10^6/uL (4.7-6.0); RED CELL DISTRIBUTION WIDTH 16.9 % (11.6-16.5); WHITE BLOOD COUNT 8.6 X10^3/uL (3.6-10.0)
[2022-12-10] MEDS: ZOSYN VIAL 3.375 GRAMS 3.375 G in NS 100 ML IV 100 ML IV SCH ×3 (05:12→21:39)
[2022-12-10 05:15] LABS: ALANINE AMINOTRANSFERASE 114 Units/L (12-78); ALBUMIN 2.2 g/dL (3.4-5.0); ALKALINE PHOSPHATASE 216 Units/L (46-116); ASPARTATE AMINO TRANSFERASE 63 Units/L (15-37); BLOOD UREA NITROGEN 6 mg/dL (7-18); CALCIUM 8.4 mg/dL (8.5-10.1); CARBON DIOXIDE 28.3 mmol/L (21-32); CHLORIDE 102 mmol/L (98-107); COR CA(FOR HYPOALB) 9.8 mg/dL (8.5-10.1); CREATININE 0.65 mg/dL (0.70-1.30); SODIUM 136 mmol/L (136-145); TOTAL PROTEIN 6.6 g/dL (6.4-8.2); eGFR NON BLACK RACES > 60 (>60)
[2022-12-10] MEDS: D5 NS 1,000 ML IV 1,000 ML IV SCH ×4 (05:29→21:39)
[2022-12-10] MEDS: SYNTHROID 125 mcg TAB PO SCH (05:37)
[2022-12-10] MEDS: PROTONIX TAB 40 MG PO SCH (08:38)
[2022-12-10] MEDS: VASOTEC TAB 10 MG PO SCH ×2 (08:38→21:38)
[2022-12-10] MEDS: DILANTIN CAP 100 MG EXT REL PO SCH ×2 (08:39→21:38)
[2022-12-10] MEDS: LIPITOR TAB 40 MG PO SCH (08:39)
--- NOTE | 2022-12-10 13:42 | NOTE.SOAP ---
Soap Note Note for Day of Date of Exam: 12/10/22 Subjective Data Subjective Data: When he got up to go to the bathroom he had some bleeding form the right groin wound which stopped with pressure. It appeared to be all venous. Hgb is stable at 9.7 grams. Objective Data Temperature: 98.1 F Pulse Rate: 77 Respiratory Rate: 18 Blood Pressure: 95/63 O2 Sat by Pulse Oximetry: 98 Objective Data: Wound . Right groin with no bleeding now. Induration is less. No pulsatile mass . Assessment Assessment: Hematoma/ wound infection right groin Plan Plan: Continue close observation , bedrest as much as possible. Obtain CTA to R/O any arterial injury.
[2022-12-10] MEDS ORDERED: D5W 1,000 ML IV 1,000 ML IV ONE (22:16)
[2022-12-10 22:45] LABS: HEMOGLOBIN 8.2 g/dL (13.5-18.0)
[2022-12-10 22:48] LABS: BASOPHILS % (AUTO) 0.4 % (0.2-1.0); EOSINOPHILS # (AUTO) 0.1 x10^3/uL (0.0-0.2); EOSINOPHILS % (AUTO) 0.8 % (0.9-2.9); HEMATOCRIT 23.9 % (42.0-54.0); LYMPHOCYTES # (AUTO) 2.3 X10^3/uL (1.3-2.9); LYMPHOCYTES % (AUTO) 34.5 % (21.0-51.0); MEAN CORPUSCULAR HEMOGLOBIN 31.2 pg (27.0-34.0); MEAN CORPUSCULAR HGB CONC 34.5 g/dL (33.0-35.0); MEAN CORPUSCULAR VOLUME 90.5 fL (80.0-100.0); MEAN PLATELET VOLUME 7.5 fL (7.4-11.0); MONOCYTES # (AUTO) 0.6 x10^3/uL (0.3-0.8); MONOCYTES % (AUTO) 9.2 % (0.0-13.0); NEUTROPHILS # (AUTO) 3.7 x10^3/uL (2.2-4.8); NEUTROPHILS % (AUTO) 55.1 % (42.0-75.0); RED BLOOD COUNT 2.64 X10^6/uL (4.7-6.0); RED CELL DISTRIBUTION WIDTH 16.9 % (11.6-16.5); WHITE BLOOD COUNT 6.7 X10^3/uL (3.6-10.0)
[2022-12-11] MEDS: PERCOCET TAB 5/325 MG PO PRN ×3 (05:15→21:19)
[2022-12-11] MEDS: ZOSYN VIAL 3.375 GRAMS 3.375 G in NS 100 ML IV 100 ML IV SCH ×3 (05:28→21:08)
[2022-12-11] MEDS: D5 NS 1,000 ML IV 1,000 ML IV SCH ×4 (05:29→21:09)
[2022-12-11 05:32] LABS: BASOPHILS % (AUTO) 0.5 % (0.2-1.0); EOSINOPHILS # (AUTO) 0.1 x10^3/uL (0.0-0.2); EOSINOPHILS % (AUTO) 0.9 % (0.9-2.9); HEMATOCRIT 25.1 % (42.0-54.0); HEMOGLOBIN 8.7 g/dL (13.5-18.0); LYMPHOCYTES # (AUTO) 2.2 X10^3/uL (1.3-2.9); LYMPHOCYTES % (AUTO) 35.7 % (21.0-51.0); MEAN CORPUSCULAR HEMOGLOBIN 31.3 pg (27.0-34.0); MEAN CORPUSCULAR HGB CONC 34.6 g/dL (33.0-35.0); MEAN CORPUSCULAR VOLUME 90.3 fL (80.0-100.0); MEAN PLATELET VOLUME 8.1 fL (7.4-11.0); MONOCYTES # (AUTO) 0.6 x10^3/uL (0.3-0.8); NEUTROPHILS # (AUTO) 3.4 x10^3/uL (2.2-4.8); NEUTROPHILS % (AUTO) 53.9 % (42.0-75.0); RED BLOOD COUNT 2.78 X10^6/uL (4.7-6.0); RED CELL DISTRIBUTION WIDTH 16.9 % (11.6-16.5); WHITE BLOOD COUNT 6.2 X10^3/uL (3.6-10.0)
[2022-12-11] MEDS: SYNTHROID 125 mcg TAB PO SCH (05:38)
[2022-12-11 05:42] LABS: ALANINE AMINOTRANSFERASE 129 Units/L (12-78); ALKALINE PHOSPHATASE 194 Units/L (46-116); ASPARTATE AMINO TRANSFERASE 80 Units/L (15-37); BLOOD UREA NITROGEN 6 mg/dL (7-18); CALCIUM 8.2 mg/dL (8.5-10.1); CARBON DIOXIDE 26.2 mmol/L (21-32); CHLORIDE 107 mmol/L (98-107); COR CA(FOR HYPOALB) 9.8 mg/dL (8.5-10.1); COR NA(FOR HYPERGLY) 140 mmol/L (136-145); CREATININE 0.66 mg/dL (0.70-1.30); SODIUM 140 mmol/L (136-145); eGFR NON BLACK RACES > 60 (>60)
[2022-12-11] MEDS: LIPITOR TAB 40 MG PO SCH (08:53)
[2022-12-11] MEDS: DILANTIN CAP 100 MG EXT REL PO SCH ×2 (08:53→21:08)
[2022-12-11] MEDS: PROTONIX TAB 40 MG PO SCH (08:53)
[2022-12-11] MEDS: VASOTEC TAB 10 MG PO SCH ×2 (10:19→21:09)
--- NOTE | 2022-12-11 15:13 | NOTE.SOAP ---
Soap Note Note for Day of Date of Exam: 12/11/22 Subjective Data Subjective Data: Still with bloody drainage from the right groin wound but no overt bleeding. Stable . BP =110/58 Objective Data Temperature: 98.4 F Pulse Rate: 80 Respiratory Rate: 18 Blood Pressure: 110/58 O2 Sat by Pulse Oximetry: 96 Objective Data: Wound right groin continues to get smaller with less induration. No overt bleeding . Hgb is 8.7. Had some hypotension responded to holding his anti- hypertensives and fluid bolus. CTA shows all arteries intact both legs. No arterial bleeding from the right groin. Hematoma both groins as expected after open dissection of both femoral arteries for aortic procedure. No aneurysm of pseusdoaneuryms of the right groin. Assessment Assessment: Hematoma resolving right groin . Plan Plan: Continue IV antibiotics an routine wound care . Patient may need wound closed before he can be discharged. Already on a diet. Continue to hold aspirin and Xarelto
[2022-12-12 05:01] LABS: BASOPHILS % (AUTO) 0.4 % (0.2-1.0); EOSINOPHILS # (AUTO) 0.1 x10^3/uL (0.0-0.2); EOSINOPHILS % (AUTO) 1.1 % (0.9-2.9); HEMATOCRIT 25.8 % (42.0-54.0); HEMOGLOBIN 8.9 g/dL (13.5-18.0); LYMPHOCYTES # (AUTO) 2.4 X10^3/uL (1.3-2.9); LYMPHOCYTES % (AUTO) 34.1 % (21.0-51.0); MEAN CORPUSCULAR HEMOGLOBIN 31.1 pg (27.0-34.0); MEAN CORPUSCULAR HGB CONC 34.5 g/dL (33.0-35.0); MEAN CORPUSCULAR VOLUME 90.1 fL (80.0-100.0); MEAN PLATELET VOLUME 7.8 fL (7.4-11.0); MONOCYTES # (AUTO) 0.6 x10^3/uL (0.3-0.8); MONOCYTES % (AUTO) 8.3 % (0.0-13.0); NEUTROPHILS # (AUTO) 3.9 x10^3/uL (2.2-4.8); NEUTROPHILS % (AUTO) 56.1 % (42.0-75.0); RED BLOOD COUNT 2.87 X10^6/uL (4.7-6.0); RED CELL DISTRIBUTION WIDTH 16.6 % (11.6-16.5)
[2022-12-12 05:13] LABS: ALANINE AMINOTRANSFERASE 139 Units/L (12-78); ALBUMIN 2.1 g/dL (3.4-5.0); ALKALINE PHOSPHATASE 185 Units/L (46-116); ASPARTATE AMINO TRANSFERASE 81 Units/L (15-37); BLOOD UREA NITROGEN 7 mg/dL (7-18); CALCIUM 8.3 mg/dL (8.5-10.1); CARBON DIOXIDE 28.9 mmol/L (21-32); CHLORIDE 104 mmol/L (98-107); COR CA(FOR HYPOALB) 9.8 mg/dL (8.5-10.1); SODIUM 139 mmol/L (136-145); TOTAL PROTEIN 6.1 g/dL (6.4-8.2); eGFR NON BLACK RACES > 60 (>60)
[2022-12-12] MEDS: D5 NS 1,000 ML IV 1,000 ML IV SCH (05:32)
[2022-12-12] MEDS: ZOSYN VIAL 3.375 GRAMS 3.375 G in NS 100 ML IV 100 ML IV SCH ×3 (05:53→21:43)
[2022-12-12] MEDS: SYNTHROID 125 mcg TAB PO SCH (05:54)
[2022-12-12] MEDS: DILANTIN CAP 100 MG EXT REL PO SCH ×2 (08:23→21:43)
[2022-12-12] MEDS: LIPITOR TAB 40 MG PO SCH (08:23)
[2022-12-12] MEDS: PROTONIX TAB 40 MG PO SCH (08:23)
[2022-12-12] MEDS: VASOTEC TAB 10 MG PO SCH (08:24)
--- NOTE | 2022-12-12 11:12 | NOTE.SOAP ---
Soap Note Note for Day of Date of Exam: 12/12/22 Subjective Data Subjective Data: Old blood draining from right groin wound. Right groin wound continues to improve. Hemoglobin stable at 8.9. Objective Data Temperature: 98.2 F Pulse Rate: 68 Respiratory Rate: 20 Blood Pressure: 105/57 O2 Sat by Pulse Oximetry: 100 Objective Data: Wound right groin as described above . Assessment Assessment: resolving hematoma right groin after vascular interventional procerdure . Plan Plan: Continue present care
[2022-12-12] MEDS: VASOTEC TAB 5 MG PO SCH (21:49)
[2022-12-13 04:52] LABS: BASOPHILS # (AUTO) 0.2 X10^3/uL (0.0-0.1); BASOPHILS % (AUTO) 2.4 % (0.2-1.0); EOSINOPHILS # (AUTO) 0.1 x10^3/uL (0.0-0.2); EOSINOPHILS % (AUTO) 0.9 % (0.9-2.9); HEMATOCRIT 26.7 % (42.0-54.0); HEMOGLOBIN 9.3 g/dL (13.5-18.0); LYMPHOCYTES # (AUTO) 2.5 X10^3/uL (1.3-2.9); LYMPHOCYTES % (AUTO) 30.1 % (21.0-51.0); MEAN CORPUSCULAR HEMOGLOBIN 31.1 pg (27.0-34.0); MEAN CORPUSCULAR HGB CONC 34.6 g/dL (33.0-35.0); MEAN CORPUSCULAR VOLUME 89.9 fL (80.0-100.0); MEAN PLATELET VOLUME 7.9 fL (7.4-11.0); MONOCYTES # (AUTO) 0.5 x10^3/uL (0.3-0.8); NEUTROPHILS # (AUTO) 5.1 x10^3/uL (2.2-4.8); NEUTROPHILS % (AUTO) 60.6 % (42.0-75.0); RED BLOOD COUNT 2.97 X10^6/uL (4.7-6.0); RED CELL DISTRIBUTION WIDTH 16.5 % (11.6-16.5); WHITE BLOOD COUNT 8.4 X10^3/uL (3.6-10.0)
[2022-12-13] MEDS: ZOSYN VIAL 3.375 GRAMS 3.375 G in NS 100 ML IV 100 ML IV SCH ×3 (05:54→21:42)
[2022-12-13] MEDS: SYNTHROID 125 mcg TAB PO SCH (05:54)
[2022-12-13] MEDS: PROTONIX TAB 40 MG PO SCH (08:18)
[2022-12-13] MEDS: LIPITOR TAB 40 MG PO SCH (08:18)
[2022-12-13] MEDS: DILANTIN CAP 100 MG EXT REL PO SCH ×2 (08:18→21:41)
[2022-12-13] MEDS: VASOTEC TAB 5 MG PO SCH ×2 (08:27→21:42)
[2022-12-14] MEDS ORDERED: SYNTHROID 125 mcg TAB ONE (05:03)
[2022-12-14] MEDS ORDERED: NS 100 ML IV 100 ML ONE (05:05)
[2022-12-14] MEDS ORDERED: ZOSYN VIAL 3.375 GRAMS IV ONE (05:05)
[2022-12-14] MEDS: ZOSYN VIAL 3.375 GRAMS 3.375 G in NS 100 ML IV 100 ML IV SCH ×3 (05:33→21:05)
[2022-12-14] MEDS: SYNTHROID 125 mcg TAB PO SCH (05:33)
[2022-12-14] MEDS ORDERED: DILANTIN CAP 100 MG EXT REL PO ONE (09:42)
[2022-12-14] MEDS ORDERED: VASOTEC TAB 5 MG ONE (09:42)
[2022-12-14] MEDS ORDERED: PROTONIX TAB 40 MG PO ONE (09:43)
[2022-12-14] MEDS ORDERED: LIPITOR TAB 40 MG ONE (09:43)
[2022-12-14] MEDS: PROTONIX TAB 40 MG PO SCH (09:44)
[2022-12-14] MEDS: LIPITOR TAB 40 MG PO SCH (09:44)
[2022-12-14] MEDS: VASOTEC TAB 5 MG PO SCH ×2 (09:44→21:06)
[2022-12-14] MEDS: DILANTIN CAP 100 MG EXT REL PO SCH ×2 (09:44→21:05)
--- NOTE | 2022-12-14 16:34 | NOTE.SOAP ---
Soap Note Note for Day of Date of Exam: 12/13/22 Subjective Data Subjective Data: Patietn with decreased bleeding from right groin wound, resolving hematoma and rising Hemoglobin (9.3 Objective Data Temperature: 97 F Pulse Rate: 76 Respiratory Rate: 20 Blood Pressure: 118/64 O2 Sat by Pulse Oximetry: 96 Objective Data: As above. . CTA shows all previous intervention of aorta, left iliac artery , right iliac artery , right common femoral artery and right superficial femoral artery are all patent with hematomas both groins which are resolving . No obvious leak. Left superficial femoral artery occlusion with distal reconstitution. Assessment Assessment: Hematoma resolving right groin wound. No leak of arterial interventions . New finding of left SFA occlusion. No rest pain reported left lej=g as of yet Plan Plan: Encourage more ambulation to see if his drainage increases from the right groin wound . Home Health consult to care for wound at discharge .
--- NOTE | 2022-12-14 16:37 | NOTE.SOAP ---
Soap Note Note for Day of Date of Exam: 12/14/22 Subjective Data Subjective Data: Continues to improve with only small amoun t of bloody drainage from right groin despite [id number] activity Objective Data Pulse Rate: 80 Respiratory Rate: 24 Blood Pressure: 97/53 O2 Sat by Pulse Oximetry: 95 Objective Data: No pulsatile mass right groin, small amount of old bloody drainage .See previous notes f/u CTA. Assessment Assessment: Resolving hematoma right groin wound after multiple vascular interventions Plan Plan: Home tomorrow with Home Health to do daily dressing changes
[2022-12-15 05:02] LABS: BASOPHILS # (AUTO) 0.2 X10^3/uL (0.0-0.1); BASOPHILS % (AUTO) 2.2 % (0.2-1.0); EOSINOPHILS % (AUTO) 0.3 % (0.9-2.9); HEMATOCRIT 29.8 % (42.0-54.0); HEMOGLOBIN 10.2 g/dL (13.5-18.0); LYMPHOCYTES # (AUTO) 2.2 X10^3/uL (1.3-2.9); LYMPHOCYTES % (AUTO) 23.7 % (21.0-51.0); MEAN CORPUSCULAR HEMOGLOBIN 30.8 pg (27.0-34.0); MEAN CORPUSCULAR HGB CONC 34.4 g/dL (33.0-35.0); MEAN CORPUSCULAR VOLUME 89.5 fL (80.0-100.0); MEAN PLATELET VOLUME 7.6 fL (7.4-11.0); MONOCYTES # (AUTO) 0.6 x10^3/uL (0.3-0.8); MONOCYTES % (AUTO) 6.4 % (0.0-13.0); NEUTROPHILS # (AUTO) 6.4 x10^3/uL (2.2-4.8); NEUTROPHILS % (AUTO) 67.4 % (42.0-75.0); RED BLOOD COUNT 3.33 X10^6/uL (4.7-6.0); RED CELL DISTRIBUTION WIDTH 16.6 % (11.6-16.5); WHITE BLOOD COUNT 9.5 X10^3/uL (3.6-10.0)
[2022-12-15] MEDS: ZOSYN VIAL 3.375 GRAMS 3.375 G in NS 100 ML IV 100 ML IV SCH (05:31)
[2022-12-15] MEDS: SYNTHROID 125 mcg TAB PO SCH (05:31)
[2022-12-15] MEDS: DILANTIN CAP 100 MG EXT REL PO SCH (10:08)
[2022-12-15] MEDS: VASOTEC TAB 5 MG PO SCH (10:08)
[2022-12-15] MEDS: PROTONIX TAB 40 MG PO SCH (10:08)
[2022-12-15] MEDS: LIPITOR TAB 40 MG PO SCH (10:08)
[2022-12-15 10:17] VITALS: BP 99/50
--- NOTE | 2022-12-15 10:48 | W.DIS.FURT ---
Summary of Discharge Discharge Summary of Date Date of Exam: 12/15/22 Admission Date Date of Admission: 12/08/22 Admission Diagnosis Patient Problems (Updated 12/15/22 @ 09:02 by Eveline Nascimento) Acute hyponatremia (Acute) E87.1 Hematoma following procedure (Acute) Hospital Course: 62 year old male with significant arterial problems and tobacco abuse who has had left iliac artery stenting, right superficial femoral artery atherectomy and balloon angioplasty followed by long bilateral iliac stents to repair a distal aortic stenosis greater than 75% and status post thrombolysis, angioplasty of the right distal external iliac artery and stenting of the right superficial femoral artery. Seen in the office last week after valeri removed with an infected hematoma of the right groin. He underwent incision and drainage in the office and was discharged with PO antibiotics and daily dressing changes. He returned to the emergency room later that evening with significant bleeding from the right groin which appeared to be old and venous in origin . He was admitted and plACED on bed rest. He did require two units of that red blood cells but has no other significant bleeding with hemoglobin rising and is 10.2 at the time of discharge CT angiogram showed no leak and no pseudo aneurysm. . He was treated with IV antibiotics. He will be discharged at this time on PO Clindamycin 150 mg four times a day and his usual home medications with the exception of holding his aspirin and Xarelto , and Percocet 5 mg tablets 1 every 6 hours PRN pain. He already has a prescription for the pain medication which I have given him previously. He will see me in the office next week.Home health will be caring for the wound daily . Vital Signs: Vital Signs (72 hours) 12/12/22 11:11 12/13/22 23:28 12/14/22 16:37 Temperature 98.2 F 97 F L Pulse Rate 68 76 80 Respiratory Rate 20 20 24 Blood Pressure 105/57 118/64 97/53 O2 Sat by Pulse Oximetry 100 96 95 Oxygen Delivery Method 12/12/22 12:00 12/12/22 16:00 12/12/22 19:00 Temperature 97.9 F 98.5 F Pulse Rate 63 63 Respiratory Rate 20 19 Blood Pressure 119/59 111/56 O2 Sat by Pulse Oximetry 100 100 Oxygen Delivery Method Room Air Room Air Room Air 12/12/22 20:00 12/13/22 00:00 12/12/22 21:00 Temperature 97 F L 97.2 F L Pulse Rate 67 67 Respiratory Rate 20 21 Blood Pressure 113/58 121/58 O2 Sat by Pulse Oximetry 100 100 Oxygen Delivery Method Room Air Room Air Room Air 12/13/22 04:00 12/13/22 06:53 12/13/22 08:00 Temperature 98 F 98.1 F Pulse Rate 66 72 Respiratory Rate 10 L 20 Blood Pressure 106/62 118/56 O2 Sat by Pulse Oximetry 100 98 Oxygen Delivery Method Room Air Room Air Room Air 12/13/22 12:00 12/13/22 15:43 12/13/22 19:00 Temperature 98.1 F 97 F L Pulse Rate 71 72 Respiratory Rate 19 20 Blood Pressure 106/53 118/64 O2 Sat by Pulse Oximetry 97 98 Oxygen Delivery Method Room Air Room Air Room Air 12/13/22 20:28 12/13/22 20:28 12/13/22 20:00 Temperature 97.6 F Pulse Rate 76 71 Respiratory Rate 20 Blood Pressure 109/54 O2 Sat by Pulse Oximetry 96 96 Oxygen Delivery Method Room Air Room Air 12/14/22 00:00 12/14/22 04:00 12/14/22 07:00 Temperature 97.6 F 98.6 F Pulse Rate 67 65 Respiratory Rate 15 15 Blood Pressure 111/57 102/54 O2 Sat by Pulse Oximetry 94 L 95 Oxygen Delivery Method Room Air Room Air Room Air 12/14/22 08:00 12/14/22 11:12 12/14/22 11:15 Temperature 98.0 F Pulse Rate 84 68 65 Respiratory Rate 17 17 24 Blood Pressure 95/53 O2 Sat by Pulse Oximetry 96 95 95 Oxygen Delivery Method Room Air 12/14/22 11:30 12/14/22 11:45 12/14/22 12:00 Temperature Pulse Rate 76 78 78 Respiratory Rate 34 H 18 26 H Blood Pressure O2 Sat by Pulse Oximetry 97 96 95 Oxygen Delivery Method 12/14/22 12:15 12/14/22 12:30 12/14/22 12:45 Temperature Pulse Rate 81 87 74 Respiratory Rate 21 23 21 Blood Pressure O2 Sat by Pulse Oximetry 95 95 98 Oxygen Delivery Method 12/14/22 13:00 12/14/22 13:15 12/14/22 13:28 Temperature Pulse Rate 78 82 Respiratory Rate 25 H 20 Blood Pressure 92/49 O2 Sat by Pulse Oximetry 96 96 Oxygen Delivery Method 12/14/22 13:28 12/14/22 13:30 12/14/22 13:31 Temperature Pulse Rate 81 87 82 Respiratory Rate 19 24 19 Blood Pressure O2 Sat by Pulse Oximetry 95 91 L 91 L Oxygen Delivery Method 12/14/22 13:31 12/14/22 13:45 12/14/22 14:00 Temperature Pulse Rate 80 Respiratory Rate 12 Blood Pressure 97/55 97/53 O2 Sat by Pulse Oximetry 95 Oxygen Delivery Method 12/14/22 14:00 12/14/22 14:15 12/14/22 14:30 Temperature Pulse Rate 80 74 Respiratory Rate 24 17 Blood Pressure 101/51 O2 Sat by Pulse Oximetry 95 95 Oxygen Delivery Method 12/14/22 14:30 12/14/22 14:45 12/14/22 15:00 Temperature Pulse Rate 69 75 Respiratory Rate 16 20 Blood Pressure 103/53 O2 Sat by Pulse Oximetry 95 98 Oxygen Delivery Method 12/14/22 15:00 12/14/22 15:15 12/14/22 15:30 Temperature Pulse Rate 76 78 Respiratory Rate 15 19 Blood Pressure 95/52 O2 Sat by Pulse Oximetry 95 96 Oxygen Delivery Method 12/14/22 15:30 12/14/22 15:45 12/14/22 16:00 Temperature Pulse Rate 72 78 Respiratory Rate 21 20 Blood Pressure 99/51 O2 Sat by Pulse Oximetry 96 96 Oxygen Delivery Method 12/14/22 16:00 12/14/22 16:15 12/14/22 16:30 Temperature 98.1 F Pulse Rate 74 78 74 Respiratory Rate 19 20 19 Blood Pressure O2 Sat by Pulse Oximetry 95 89 L 95 Oxygen Delivery Method 12/14/22 16:33 12/14/22 16:33 12/14/22 16:45 Temperature Pulse Rate 78 74 Respiratory Rate 23 21 Blood Pressure 100/52 O2 Sat by Pulse Oximetry 100 97 Oxygen Delivery Method 12/14/22 19:00 12/14/22 20:00 12/15/22 00:00 Temperature 97.9 F 97.9 F Pulse Rate 87 77 Respiratory Rate 20 20 Blood Pressure 99/63 105/56 O2 Sat by Pulse Oximetry 98 95 Oxygen Delivery Method Room Air Room Air Room Air 12/15/22 04:00 12/15/22 09:04 12/15/22 07:00 Temperature 98.4 F Pulse Rate 79 Respiratory Rate 18 Blood Pressure 90/49 O2 Sat by Pulse Oximetry 95 Oxygen Delivery Method Room Air Room Air Room Air 12/15/22 02:15 12/15/22 02:30 12/15/22 02:30 Temperature Pulse Rate 77 76 Respiratory Rate 20 20 Blood Pressure 101/57 O2 Sat by Pulse Oximetry 90 L 94 L Oxygen Delivery Method 12/15/22 02:45 12/15/22 03:00 12/15/22 03:00 Temperature Pulse Rate 71 70 Respiratory Rate 11 L 17 Blood Pressure 92/53 O2 Sat by Pulse Oximetry 97 95 Oxygen Delivery Method 12/15/22 03:15 12/15/22 03:30 12/15/22 03:30 Temperature Pulse Rate 77 70 Respiratory Rate 10 L 17 Blood Pressure 85/49 O2 Sat by Pulse Oximetry 96 94 L Oxygen Delivery Method 12/15/22 03:45 12/15/22 04:00 12/15/22 04:00 Temperature Pulse Rate 71 80 Respiratory Rate 16 15 Blood Pressure 86/62 O2 Sat by Pulse Oximetry 95 92 L Oxygen Delivery Method 12/15/22 04:15 12/15/22 04:21 12/15/22 04:21 Temperature Pulse Rate 86 77 Respiratory Rate 42 H 18 Blood Pressure 90/49 O2 Sat by Pulse Oximetry 94 L 92 L Oxygen Delivery Method 12/15/22 04:30 12/15/22 04:30 12/15/22 04:45 Temperature Pulse Rate 76 74 Respiratory Rate 18 19 Blood Pressure 89/54 O2 Sat by Pulse Oximetry 94 L 94 L Oxygen Delivery Method 12/15/22 04:59 12/15/22 05:00 12/15/22 05:02 Temperature Pulse Rate 76 70 Respiratory Rate 31 H 17 Blood Pressure 92/52 O2 Sat by Pulse Oximetry 96 93 L Oxygen Delivery Method 12/15/22 05:15 12/15/22 05:30 12/15/22 05:30 Temperature Pulse Rate 69 68 Respiratory Rate 17 16 Blood Pressure 98/52 O2 Sat by Pulse Oximetry 94 L 93 L Oxygen Delivery Method 12/15/22 05:45 12/15/22 06:00 12/15/22 06:00 Temperature Pulse Rate 72 73 Respiratory Rate 16 17 Blood Pressure 104/53 O2 Sat by Pulse Oximetry 95 96 Oxygen Delivery Method 12/15/22 06:15 12/15/22 06:30 12/15/22 06:30 Temperature Pulse Rate 77 76 Respiratory Rate 17 18 Blood Pressure 103/51 O2 Sat by Pulse Oximetry 92 L 93 L Oxygen Delivery Method 12/15/22 06:45 12/15/22 07:00 12/15/22 07:00 Temperature Pulse Rate 73 71 Respiratory Rate 18 24 Blood Pressure 109/56 O2 Sat by Pulse Oximetry 93 L 94 L Oxygen Delivery Method 12/15/22 07:15 12/15/22 07:30 12/15/22 07:45 Temperature Pulse Rate 74 83 90 Respiratory Rate 20 25 H 23 Blood Pressure O2 Sat by Pulse Oximetry 94 L 93 L 90 L Oxygen Delivery Method 12/15/22 08:00 12/15/22 08:00 12/15/22 08:15 Temperature 98.1 F Pulse Rate 84 79 Respiratory Rate 22 13 Blood Pressure 94/52 O2 Sat by Pulse Oximetry 95 95 Oxygen Delivery Method 12/15/22 08:30 12/15/22 08:30 12/15/22 08:47 Temperature Pulse Rate 82 93 H Respiratory Rate 19 Blood Pressure 131/56 O2 Sat by Pulse Oximetry 96 95 Oxygen Delivery Method 12/15/22 09:00 12/15/22 09:00 12/15/22 09:15 Temperature Pulse Rate 91 H 86 Respiratory Rate 18 12 Blood Pressure 80/55 O2 Sat by Pulse Oximetry 93 L 96 Oxygen Delivery Method 12/15/22 09:30 12/15/22 09:45 12/15/22 10:00 Temperature Pulse Rate 91 H 88 Respiratory Rate 15 22 Blood Pressure 99/50 O2 Sat by Pulse Oximetry 90 L 95 Oxygen Delivery Method 12/15/22 10:00 12/15/22 10:15 Temperature Pulse Rate 86 85 Respiratory Rate 22 28 H Blood Pressure O2 Sat by Pulse Oximetry 96 97 Oxygen Delivery Method Labs: Laboratory Last Values WBC 9.5 X10^3/uL (3.6-10.0) 12/15/22 04:01 RBC 3.33 X10^6/uL (4.7-6.0) L 12/15/22 04:01 Hgb 10.2 g/dL (13.5-18.0) L 12/15/22 04:01 Hct 29.8 % (42.0-54.0) L 12/15/22 04:01 MCV 89.5 fL (80.0-100.0) 12/15/22 04:01 MCH 30.8 pg (27.0-34.0) 12/15/22 04:01 MCHC 34.4 g/dL (33.0-35.0) 12/15/22 04:01 RDW 16.6 % (11.6-16.5) H 12/15/22 04:01 Plt Count 238 X10^3/uL (150.0-450.0) 12/15/22 04:01 MPV 7.6 fL (7.4-11.0) 12/15/22 04:01 Neut % (Auto) 67.4 % (42.0-75.0) 12/15/22 04:01 Lymph % (Auto) 23.7 % (21.0-51.0) 12/15/22 04:01 [place] % (Auto) 6.4 % (0.0-13.0) 12/15/22 04:01 Eos % (Auto) 0.3 % (0.9-2.9) L 12/15/22 04:01 Baso % (Auto) 2.2 % (0.2-1.0) H 12/15/22 04:01 Neut # (Auto) 6.4 x10^3/uL (2.2-4.8) H 12/15/22 04:01 Lymph # (Auto) 2.2 X10^3/uL (1.3-2.9) 12/15/22 04:01 [place] # (Auto) 0.6 x10^3/uL (0.3-0.8) 12/15/22 04:01 Eos # (Auto) 0.0 x10^3/uL (0.0-0.2) 12/15/22 04:01 Baso # (Auto) 0.2 X10^3/uL (0.0-0.1) H 12/15/22 04:01 Absolute Nucleated RBC 0.0 /100WBC 12/15/22 04:01 PT 15.6 SECONDS (11.8-14.3) 12/08/22 18:42 INR Target Range - 12/08/22 18:42 INR 1.28 (0.8-1.3) 12/08/22 18:42 APTT 26.0 SECONDS (22.9-36.5) 12/08/22 18:42 PTT Comment - 12/08/22 18:42 Sodium 139 mmol/L (136-145) 12/12/22 04:15 Corrected Sodium TNP 12/12/22 04:15 Potassium 3.7 mmol/L (3.5-5.1) 12/12/22 04:15 Chloride 104 mmol/L (98-107) 12/12/22 04:15 Carbon Dioxide 28.9 mmol/L (21-32) 12/12/22 04:15 BUN 7 mg/dL (7-18) 12/12/22 04:15 Creatinine 0.70 mg/dL (0.70-1.30) 12/12/22 04:15 Est GFR (MDRD) Af Amer > 60 (>60) 12/12/22 04:15 Est GFR (MDRD) Non-Af > 60 (>60) 12/12/22 04:15 Glucose 104 mg/dL (65-99) H 12/12/22 04:15 Calcium 8.3 mg/dL (8.5-10.1) L 12/12/22 04:15 Corrected Calcium 9.8 mg/dL (8.5-10.1) 12/12/22 04:15 Total Bilirubin 0.10 mg/dL (0.2-1.0) L 12/12/22 04:15 AST 81 Units/L (15-37) H 12/12/22 04:15 ALT 139 Units/L (12-78) H 12/12/22 04:15 Alkaline Phosphatase 185 Units/L (46-116) H 12/12/22 04:15 Total Protein 6.1 g/dL (6.4-8.2) L 12/12/22 04:15 Albumin 2.1 g/dL (3.4-5.0) L 12/12/22 04:15 Globulin 4.0 g/dL (2.5-4.5) 12/12/22 04:15 Albumin/Globulin Ratio 0.5 Ratio (1.1-2.1) L 12/12/22 04:15 Blood Type A POSITIVE 12/08/22 20:00 Antibody Screen Negative 12/08/22 20:00 Crossmatch See Detail 12/08/22 20:00 Reason For Visit: ACUTE HYPONATREMIA, HEMATOMA R GROIN Discharge Date Discharge Date: 12/15/22 Discharge Diagnosis All Active Problems (Updated 12/15/22 @ 09:02 by Eveline Nascimento) Thyroid disease (Chronic) Pulmonary disease (Chronic) GERD (gastroesophageal reflux disease) (Chronic) DJD (degenerative joint disease) (Chronic) Hematoma of groin (Acute) Acute hyponatremia (Acute) Hematoma following procedure (Acute) Chronic obstructive bronchitis (Chronic) Hypertension (Chronic) Plan of Treatment: Continue with present treatment and follow up plan. Pt is to keep follow up appointment as instructed and take medications as ordered. Discharge Medications Discharge Medications: chocolate flavor Adverse Reaction (Verified 12/08/22 09:57) RASH tomato Adverse Reaction (Verified 12/08/22 09:57) RASH New Prescriptions clindamycin HCl 150 mg capsule 150 mg PO QID #30 caps 12/15/22 [Rx] Discharge Disposition Assessment: see hospital course Discharge Plan Discharge Plan Hospital Course: 62 year old male with significant arterial problems and tobacco abuse who has had left iliac artery stenting, right superficial femoral artery atherectomy and balloon angioplasty followed by long bilateral iliac stents to repair a distal aortic stenosis greater than 75% and status post thrombolysis, angioplasty of the right distal external iliac artery and stenting of the right superficial femoral artery. Seen in the office last week after valeri removed with an infected hematoma of the right groin. He underwent incision and drainage in the office and was discharged with PO antibiotics and daily dressing changes. He returned to the emergency room later that evening with significant bleeding from the right groin which appeared to be old and venous in origin . He was admitted and plACED on bed rest. He did require two units of that red blood cells but has no other significant bleeding with hemoglobin rising and is 10.2 at the time of discharge CT angiogram showed no leak and no pseudo aneurysm. . He was treated with IV antibiotics. He will be discharged at this time on PO Clindamycin 150 mg four times a day and his usual home medications with the exception of holding his aspirin and Xarelto , and Percocet 5 mg tablets 1 every 6 hours PRN pain. He already has a prescription for the pain medication which I have given him previously. He will see me in the office next week.Home health will be caring for the wound daily . Patient Disposition: 01 HOME, SELF-CARE Condition: Stable Health Concerns: Post Hospitalization: new medications and changes needed to prevent readmission or further decline. Pt educated and given instructions on all concerns. Care Plan Goals: see above Plan of Treatment: Continue with present treatment and follow up plan. Pt is to keep follow up appointment as instructed and take medications as ordered. Assessment: see hospital course Prescription drug monitoring program results: PDMP reviewed and no concerns identified Prescriptions: New clindamycin HCl 150 mg capsule 150 mg PO QID Qty: 30 0RF Continued phenytoin sodium extended [Dilantin Extended] 100 mg capsule 100 mg PO BID MDD 4 30 Days Qty: 120 2RF Rx Instructions: 2 caps BID atorvastatin 40 mg Tablet 80 mg PO QDAY enalapril maleate 5 mg Tablet 5 mg PO BID levothyroxine [Synthroid] 125 mcg Tablet 250 mcg PO QDAY Trelegy Ellipta 100-62.5-25 mcg Blister With Device 1 inh INHALATION QDAY oxycodone-acetaminophen [Percocet] 5-325 mg tablet 1 tab PO Q6H MDD 4 PRNQty: 30 0RF Discontinued Xarelto 10 mg tablet 10 mg PO BID Qty: 60 0RF Rx Instructions: for 35 days Follow ups/Referrals Follow ups/Referrals: MAURICIO LAMAR [Primary Care Provider] - 12/22/22 9:30 am Ray Servin [STAFF PHYSICIAN] - 12/20/22 3:30 pm Instructions Instructions: Blood Transfusion, Adult, Care After, [id number], Hematoma, [id number] Activity Restrictions/Additional Instructions: Hold all blood thinners. Hold Aspirin Stand Alone Forms: Excuse From Work or School
--- NOTE | 2022-12-15 14:33 | CT ---
HISTORYBLEEDING RIGHT GROIN, MULTIPLE ARTERAIL INTERVENTISTUDYCTA AORTA WITH RUNOFFCOMPARKettering Health [facility] [address]22TECHNIQUEAxial CT images of the chest, abdomen, pelvis and lower extremities were obtained prior to and after the administration of 150 mL Omnipaque 350 IV contrast during the arterial phase. Images were reformatted with a 3D angiographic technique for further evaluation.Radiation dose: 497.02 mGy-cm total DLPFINDINGSAorta: Atherosclerotic changes to the thoracic and abdominal aorta with no aneurysm. No clinically significant stenosis or occlusion. Bilateral iliac artery stents in place.Mesenteric arteries/Celiac trunk: Atherosclerotic changes. 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 No clinically significant stenosis, occlusion or aneurysm.Right iliac arteries: Moderate atherosclerotic changes. No clinically significant stenosis, occlusion or aneurysm.Left iliac arteries: Moderate atherosclerotic changes. No clinically significant stenosis, occlusion or aneurysm.Right femoral arteries/popliteal artery: Atherosclerotic changes. No clinically significant stenosis, occlusion or aneurysm. Nonspecific soft tissue density surrounding the common femoral artery measuring approximately 4.9 x 4.3 cm. Small band of contrast extending from the anterior margin of the right common femoral artery as seen on axial images 165-167 measuring approximately 5 x 7 mm. Right distal superficial femoral artery stent in place.Left femoral arteries/popliteal artery: Atherosclerotic changes. Occlusion of the left superficial femoral artery with some distal reconstitution. Soft tissue density surrounding the origin of the left common femoral artery measuring approximately 2.9 x 2.1 cm.Right infrapopliteal arteries: Moderate atherosclerotic changes. No occlusion or aneurysm. 3 vessel runoff.Left infrapopliteal arteries: Moderate changes. No occlusion or aneurysm. 3 vessel runoff.Mild centrilobular emphysema.No mediastinal or hilar adenopathy.Pulmonary arteries are normal in caliberDistal esophagus appears normal.No effusion, focal consolidation or pneumothorax.No acute osseous abnormality.Stomach and proximal small bowel appear normal.Solid visceral organs of the upper abdomen are unremarkable.Status post cholecystectomy.No biliary dilatation.Cyst in the interpolar region of the right kidney.Otherwise, unremarkable appearance of the kidneys and ureters.No urinary calculus identified.Urinary bladder is unremarkable.Anastomotic suture in large bowel in the right upper abdomen.Otherwise, unremarkable appearance of the remaining bowel.No evidence of acute appendicitis; although the appendix is not definitively identified..Reproductive structures are unremarkable.No pneumoperitoneum.No free intra-abdominal fluid.No adenopathy.IMPRESSION1. 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 Nonspecific soft tissue density surrounding the right common femoral artery measuring approximately 4.9 x 4.3 cm; could represent a hematoma or infectious process. Small band of contrast extending from the anterior margin of the right common femoral artery as seen on axial images 165-167 measuring approximately 5 x 7 mm; concerning for a small pseudoaneurysm.3. Occlusion of the left superficial femoral artery with some distal reconstitution. Soft tissue density surrounding the origin of the left common femoral artery measuring approximately 2.9 x 2.1 cm with no pseudoaneurysm identified. Finding could represent a hematoma or infectious process.4. Mild centrilobular emphysema.Electronically signed by: Brad Canchola (Dec 11, 2022 18:34:38)
== END 2022-12-15 11:42 | disposition home or self-care (01) | DRG 921 ==
LOC: ER 17:59 → ICU 20:22
PROVIDERS: ADMIT Surgery; ATTEND Surgery
DX: M15.9 Polyosteoarthritis, unspecified; E87.6 Hypokalemia; E03.8 Other specified hypothyroidism; I25.10 Atherosclerotic heart disease of native coronary artery without angina pectoris; I70.221 Atherosclerosis of native arteries of extremities with rest pain, right leg; Y83.8 Other surgical procedures as the cause of abnormal reaction of the patient, or of later complication, without mention of misadventure at the time of the procedure; G40.909 Epilepsy, unspecified, not intractable, without status epilepticus; Z66 Do not resuscitate; K21.00 Gastro-esophageal reflux disease with esophagitis, without bleeding; E78.2 Mixed hyperlipidemia; L76.32 Postprocedural hematoma of skin and subcutaneous tissue following other procedure; I10 Essential (primary) hypertension; I77.1 Stricture of artery

== ENCOUNTER 2023-01-18 23:03 | Inpatient (IN) ==
--- NOTE | 2023-01-18 23:29 | DR.EXTPAIN ---
HPI Time seen Time Seen by Provider: 01/18/23 23:28 PCP Primary Care Physician: CASEY LAMAR Complaint/Symptoms Chief Complaint Doctor Comments: Patient had vascular procedure done 1 month ago.Stent was placed in bilateral femoral vessels. Patient was re-evaluated by Dr Otto because with swelling.Patient was diagnosed with abscess and was admitted by Dr otto to the hospital and the abscess was drained. He states that he received iv antibiotics. Patient presents to the ED because of pain and swelling in Rt groin.Patient states Rt groin mass is red and warm Patient denies: fever,weakness,d/c,n,v. Chief Complaint:: PT AMULATORY IN ED WITH C/O KNOT TO RIGHT GROIN THAT WAS GOLF BALL SIZE 2 DAYS AGO AND NOW TANGERINE SIZE. PT STATES IT IS RED AND FEVERED. PT S/P STENTING AND DECLOTTING. COVID-19 Coronavirus risk:travel/contact w/high risk person: No Has patient experienced Coronavirus symptoms: No Source History Provided: Patient Mode of arrival Mode of Arrival: Ambulatory Timing Onset of Chief Complaint: 01/15/23 PMH PMH Past Medical History: Yes Past Medical History: Anemia, Arthritis, Asthma, COPD, Coronary Artery Disease, Dyslipidemia, GERD, Hypertension, Hypothyroidism and Seizures Past Medical History Comment: DJD COLON CA PAD Past Surgical History: Yes Surgical History: Angioplasty/Stents, Bowel Resection, Cholecystectomy, Ortho Surgery and Other Past Surgical History Comment: RIGHT FOOT COLECTOMY Family History History of Family Medical Conditions: Yes Family Medical History: Hypertension Social History Does patient currently use any type of tobacco product: Yes Have you used tobacco products in the last 12 months: Yes Type of Tobacco Use: Cigarettes Does any household member use tobacco: No Alcohol Use: None Do you use any recreational Drugs:: No Lives With: Family Lives Where: Home Travel Risk Coronavirus risk:travel/contact w/high risk person: No Has patient experienced Coronavirus symptoms: No Infectious screening In the last 2 months have you had wt loss of >10#?: NO Have you had fever, night sweats or hemotysis?: No Have you traveled outside the country in the last 6 months?: No Isolation: Standard ROS Review of Systems Constitutional: No Symptoms Reported Eyes: No Symptoms Reported ENTM: No Symptoms Reported Respiratoy: No Symptoms Reported Cardiovascular: No Symptoms Reported Gastrointestinal/Abdominal: No Symptoms Reported Genitourinary: No Symptoms Reported Neurological: No Symptoms Reported Musculoskeletal: No Symptoms Reported and Other (erythema and tenderness Rt inguinal region) Integumentary: No Symptoms Reported and Other (Abscess Rt inguinal region) Hematologic/Lymphatic: No Symptoms Reported Endocrine: No Symptoms Reported Psychiatric: No Symptoms Reported All Other Systems: Reviewed and Negative PE Vital Signs Vitals: Temperature 98.8 F Pulse Rate 95 Respiratory Rate 20 Blood Pressure [Right Arm] 96/65 Blood Pressure 107/70 O2 Sat by Pulse Oximetry 96 General Limitations: No Limitations General Appearance: Alert and In No Apparent Distress Head Head Exam: Normal Inspection Eyes Eye exam: Normal Appearance ENT ENT Exam: Normal Exam Neck Neck Exam: Normal Inspection Chest Chest Inspection: Normal Inspection Respiratory Respiratory Exam: Normal Lung Sounds Bilat Respiratory Exam: Bilateral: Clear to Auscultation Cardiovascular Cardiovascular Exam: Regular Rate and Normal Rhythm Abdominal Exam Abdominal Exam: Normal Inspection, Normal Bowel Sounds and Soft Extremities Extremities Exam: Normal Inspection and Tenderness (Rt inguinal region) Lower Extremities Hip/Pelvis Exam: Swelling (and induration Rt inguinal region) Back Back Exam: Normal Inspection Neurological Neurological Exam: Alert, Oriented X3 and CN II-XII Intact Psychiatric Psychiatric Exam: Normal Affect and Normal Mood Skin Skin Exam: Warm, Dry, Intact and Normal Color MDM Differential Diagnosis Differential Diagnosis: Other (Abscess Rt inguinal region) COURSE Treatment Treatment: 23:46 Patient is hypotensive ( 89/44)and will be given NS 1liter bolus. 01:15 BP is 107/70 after the NS bolus.Duscussed case with Dr Otto. He would like the patient to be given Zosyn and admitted to his service. ROR Labs Reviewed Laboratory Results Reviewed?: Yes Result Diagrams: 01/18/23 23:58 01/18/23 23:58 Laboratory: WBC 14.2 X10^3/uL (3.6-10.0) H 01/18/23 23:58 RBC 3.48 X10^6/uL (4.7-6.0) L 01/18/23 23:58 Hgb 10.7 g/dL (13.5-18.0) L 01/18/23 23:58 Hct 31.8 % (42.0-54.0) L 01/18/23 23:58 MCV 91.5 fL (80.0-100.0) 01/18/23 23:58 MCH 30.7 pg (27.0-34.0) 01/18/23 23:58 MCHC 33.6 g/dL (33.0-35.0) 01/18/23 23:58 RDW 16.8 % (11.6-16.5) H 01/18/23 23:58 Plt Count 109 X10^3/uL (150.0-450.0) L 01/18/23 23:58 Plt Count Comment Decreased (ADEQUATE) 01/18/23 23:58 MPV 9.3 fL (7.4-11.0) 01/18/23 23:58 Neut % (Auto) 81.3 % (42.0-75.0) H 01/18/23 23:58 Lymph % (Auto) 7.6 % (21.0-51.0) L 01/18/23 23:58 [place] % (Auto) 10.5 % (0.0-13.0) 01/18/23 23:58 Eos % (Auto) 0.1 % (0.9-2.9) L 01/18/23 23:58 Baso % (Auto) 0.5 % (0.2-1.0) 01/18/23 23:58 Neut # (Auto) 11.5 x10^3/uL (2.2-4.8) H 01/18/23 23:58 Lymph # (Auto) 1.1 X10^3/uL (1.3-2.9) L 01/18/23 23:58 [place] # (Auto) 1.5 x10^3/uL (0.3-0.8) H 01/18/23 23:58 Eos # (Auto) 0.0 x10^3/uL (0.0-0.2) 01/18/23 23:58 Baso # (Auto) 0.1 X10^3/uL (0.0-0.1) 01/18/23 23:58 Absolute Nucleated RBC 0.0 /100WBC 01/18/23 23:58 Total Counted 100 01/18/23 23:58 Neutrophils % (Manual) 82 % (39-76) H 01/18/23 23:58 Lymphocytes % (Manual) 13 % (13-43) 01/18/23 23:58 Monocytes % (Manual) 5 % (4-9) 01/18/23 23:58 Plt Morphology Comment Normal (NORMAL) 01/18/23 23:58 RBC Morphology Normal (NORMAL) 01/18/23 23:58 Sodium 128 mmol/L (136-145) L 01/18/23 23:58 Corrected Sodium 128 mmol/L (136-145) L 01/18/23 23:58 Potassium 3.8 mmol/L (3.5-5.1) 01/18/23 23:58 Chloride 93 mmol/L (98-107) L 01/18/23 23:58 Carbon Dioxide 25.5 mmol/L (21-32) 01/18/23 23:58 BUN 16 mg/dL (7-18) 01/18/23 23:58 Creatinine 0.92 mg/dL (0.70-1.30) 01/18/23 23:58 Est GFR (MDRD) Af Amer > 60 (>60) 01/18/23 23:58 Est GFR (MDRD) Non-Af > 60 (>60) 01/18/23 23:58 Glucose 112 mg/dL (65-99) H 01/18/23 23:58 Lactic Acid 1.0 mmol/L (0.4-2.0) 01/18/23 23:58 Calcium 8.8 mg/dL (8.5-10.1) 01/18/23 23:58 Corrected Calcium 9.8 mg/dL (8.5-10.1) 01/18/23 23:58 Total Bilirubin 0.30 mg/dL (0.2-1.0) 01/18/23 23:58 AST 42 Units/L (15-37) H 01/18/23 23:58 ALT 37 Units/L (12-78) 01/18/23 23:58 Alkaline Phosphatase 117 Units/L (46-116) H 01/18/23 23:58 C-Reactive Protein 412.00 mg/L (0-3.0) H 01/18/23 23:58 Total Protein 7.4 g/dL (6.4-8.2) 01/18/23 23:58 Albumin 2.8 g/dL (3.4-5.0) L 01/18/23 23:58 Globulin 4.6 g/dL (2.5-4.5) H 01/18/23 23:58 Albumin/Globulin Ratio 0.6 Ratio (1.1-2.1) L 01/18/23 23:58 Opioid Opioid Risk Tool Age (Rodney box if 16-45): No History of Preadolescent Sexual Abuse: No Total: 0 Total Score Risk Category: Low Risk Copyright: Busby LR predicting aberrant behaviors Discharge Plan Diagnosis Discharge Problem: Abscess of right groin Discharge Plan Patient Disposition: 09 ADMITTED INPATIENT Condition: Stable Prescriptions: No Action phenytoin sodium extended [Dilantin Extended] 100 mg capsule 100 mg PO BID MDD 4 30 Days Qty: 120 2RF Rx Instructions: 2 caps BID Xarelto 10 mg tablet 10 mg PO BID MDD 2 Qty: 60 0RF doxycycline hyclate 50 mg tablet 50 mg PO BID MDD 2 10 Days Qty: 20 0RF tramadol 50 mg tablet 50 mg PO BID MDD 2 PRN (Reason: pain) 10 Days Qty: 20 0RF atorvastatin 40 mg Tablet 80 mg PO QDAY enalapril maleate 5 mg Tablet 5 mg PO BID levothyroxine [Synthroid] 125 mcg Tablet 250 mcg PO QDAY Trelegy Ellipta 100-62.5-25 mcg Blister With Device 1 inh INHALATION QDAY Health Concerns: Post Hospitalization: new medications and changes needed to prevent readmission or further decline. Pt educated and given instructions on all concerns. Plan of Treatment: Continue with present treatment and follow up plan. Pt is to keep follow up appointment as instructed and take medications as ordered. Orders to Discharge Patient Discharge Orders: Transfer (Routine); Ordered 01/19/23 Ordered By: Zohreh Dunn Follow ups/Referrals Follow ups/Referrals: MAURICIO LAMAR [Primary Care Provider] - 3 days
[2023-01-18] MEDS ORDERED: NS 1,000 ML IV 1,000 ML IV ONE (23:44)
[2023-01-18] MEDS ORDERED: NS 1,000 ML IV 1,000 ML ONE (23:49)
[2023-01-19 00:30] LABS: BASOPHILS # (AUTO) 0.1 X10^3/uL (0.0-0.1); BASOPHILS % (AUTO) 0.5 % (0.2-1.0); EOSINOPHILS % (AUTO) 0.1 % (0.9-2.9); HEMATOCRIT 31.8 % (42.0-54.0); HEMOGLOBIN 10.7 g/dL (13.5-18.0); LYMPHOCYTES # (AUTO) 1.1 X10^3/uL (1.3-2.9); LYMPHOCYTES % (AUTO) 7.6 % (21.0-51.0); MEAN CORPUSCULAR HEMOGLOBIN 30.7 pg (27.0-34.0); MEAN CORPUSCULAR HGB CONC 33.6 g/dL (33.0-35.0); MEAN CORPUSCULAR VOLUME 91.5 fL (80.0-100.0); MEAN PLATELET VOLUME 9.3 fL (7.4-11.0); MONOCYTES # (AUTO) 1.5 x10^3/uL (0.3-0.8); MONOCYTES % (AUTO) 10.5 % (0.0-13.0); NEUTROPHILS # (AUTO) 11.5 x10^3/uL (2.2-4.8); NEUTROPHILS % (AUTO) 81.3 % (42.0-75.0); PLATELET COUNT 109 X10^3/uL (150.0-450.0); RED BLOOD COUNT 3.48 X10^6/uL (4.7-6.0); RED CELL DISTRIBUTION WIDTH 16.8 % (11.6-16.5); WHITE BLOOD COUNT 14.2 X10^3/uL (3.6-10.0)
[2023-01-19 00:47] LABS: ALANINE AMINOTRANSFERASE 37 Units/L (12-78); ALBUMIN 2.8 g/dL (3.4-5.0); ALKALINE PHOSPHATASE 117 Units/L (46-116); ASPARTATE AMINO TRANSFERASE 42 Units/L (15-37); BLOOD UREA NITROGEN 16 mg/dL (7-18); CALCIUM 8.8 mg/dL (8.5-10.1); CARBON DIOXIDE 25.5 mmol/L (21-32); CHLORIDE 93 mmol/L (98-107); COR CA(FOR HYPOALB) 9.8 mg/dL (8.5-10.1); COR NA(FOR HYPERGLY) 128 mmol/L (136-145); CREATININE 0.92 mg/dL (0.70-1.30); GLUCOSE 112 mg/dL (65-99); POTASSIUM 3.8 mmol/L (3.5-5.1); SODIUM 128 mmol/L (136-145); TOTAL PROTEIN 7.4 g/dL (6.4-8.2); eGFR NON BLACK RACES > 60 (>60)
[2023-01-19 00:52] LABS: PLATELET MORPHOLOGY COMMENT NORMAL (NORMAL)
[2023-01-19] MEDS: NS 1,000 ML IV 1,000 ML IV SCH ×2 (02:00→15:37)
[2023-01-19] MEDS ORDERED: NS 1,000 ML IV 1,000 ML ONE (02:00)
[2023-01-19] MEDS ORDERED: ZOSYN VIAL 2.25 GRAMS ONE (02:01)
[2023-01-19] MEDS ORDERED: NS 100 ML IV 100 ML ONE (02:13)
[2023-01-19] MEDS: ZOSYN VIAL 2.25 GRAMS 2.25 G in NS 100 ML IV 100 ML IV SCH ×4 (02:20→21:07)
[2023-01-19] MEDS ORDERED: ZOSYN VIAL 3.375 GRAMS 3.375 G in NS 100 ML IV 100 ML IV ONE (03:00)
[2023-01-19 03:32] VITALS: BMI 21.8
[2023-01-19 05:02] LABS: BASOPHILS % (AUTO) 0.1 % (0.2-1.0); EOSINOPHILS % (AUTO) 0.1 % (0.9-2.9); HEMATOCRIT 27.8 % (42.0-54.0); HEMOGLOBIN 9.4 g/dL (13.5-18.0); LYMPHOCYTES # (AUTO) 1.3 X10^3/uL (1.3-2.9); LYMPHOCYTES % (AUTO) 10.3 % (21.0-51.0); MEAN CORPUSCULAR HEMOGLOBIN 30.7 pg (27.0-34.0); MEAN CORPUSCULAR HGB CONC 33.9 g/dL (33.0-35.0); MEAN CORPUSCULAR VOLUME 90.6 fL (80.0-100.0); MEAN PLATELET VOLUME 9.3 fL (7.4-11.0); MONOCYTES # (AUTO) 1.1 x10^3/uL (0.3-0.8); MONOCYTES % (AUTO) 8.6 % (0.0-13.0); NEUTROPHILS # (AUTO) 10.6 x10^3/uL (2.2-4.8); NEUTROPHILS % (AUTO) 80.9 % (42.0-75.0); PLATELET COUNT 104 X10^3/uL (150.0-450.0); RED BLOOD COUNT 3.07 X10^6/uL (4.7-6.0); RED CELL DISTRIBUTION WIDTH 16.5 % (11.6-16.5); WHITE BLOOD COUNT 13.1 X10^3/uL (3.6-10.0)
[2023-01-19 05:16] LABS: ALANINE AMINOTRANSFERASE 39 Units/L (12-78); ALBUMIN 2.5 g/dL (3.4-5.0); ALKALINE PHOSPHATASE 107 Units/L (46-116); ASPARTATE AMINO TRANSFERASE 45 Units/L (15-37); BLOOD UREA NITROGEN 14 mg/dL (7-18); CALCIUM 8.4 mg/dL (8.5-10.1); CARBON DIOXIDE 24.4 mmol/L (21-32); CHLORIDE 96 mmol/L (98-107); COR CA(FOR HYPOALB) 9.6 mg/dL (8.5-10.1); CREATININE 0.77 mg/dL (0.70-1.30); GLUCOSE 94 mg/dL (65-99); POTASSIUM 3.5 mmol/L (3.5-5.1); SODIUM 130 mmol/L (136-145); TOTAL PROTEIN 6.7 g/dL (6.4-8.2); eGFR NON BLACK RACES > 60 (>60)
[2023-01-19] MEDS: XARELTO PO SCH ×2 (08:39→21:08)
[2023-01-19] MEDS: SYNTHROID 125 mcg TAB PO SCH (08:39)
[2023-01-19] MEDS: VASOTEC TAB 5 MG PO SCH ×2 (08:39→23:32)
[2023-01-19] MEDS: DILANTIN CAP 100 MG EXT REL PO SCH ×2 (08:39→21:08)
[2023-01-19] MEDS: LIPITOR TAB 40 MG PO SCH (08:39)
[2023-01-19] MEDS: ULTRAM PO PRN ×2 (08:40→21:09)
[2023-01-19] MEDS ORDERED: PATIENT'S HOME MEDICATION (Fluticasone-Umeclidin-Vilanter [Trelegy Ellipta] 100-62.5-25 mc IN SCH (09:00)
[2023-01-19] MEDS ORDERED: DUONEB 0.5 MG/3 MG (3 mL) NEB SCH (09:00)
[2023-01-19] MEDS ORDERED: PULMICORT NEB TX 0.5 MG NEB SCH (09:00)
[2023-01-19] MEDS ORDERED: DUONEB 0.5 MG/3 MG (3 mL) NEB PRN (12:03)
--- NOTE | 2023-01-19 17:54 | DR.H&P ---
H&P History & Physical for Day of: H&P Date: 01/19/23 Chief Complaint Chief Complaint: 62 yo male with history of tobacco abuse , coronary artery disease and COPD who has had multiple arterial interventions to include left common iliac artery stenting, b/l SFA intervention and most recently had intervention of > 75 % stenosis of the distal aorta with 2 long iliac artery kassandra nts extending into the aorta. Both of these were implanted via open groin incisions . This was complicated by infection of right groin and thrombosis of the left side grafts requiring thrombolysis of the clot. Discharged home on therapeutic dose of Xarelto and aspirin and his usual home medications . Never had any bleeding in the right groin and the wound healed on Iv an d then po antibiotics. Wash seen in office several weeks ago and was doing well with healed right groin wound and good arterial flow to both feet. He has since stopped smoking . Was back at work. Presented to [facility] with complaint of swelling and pain and redness in the right groin. Evaluated in ER with diagnosis of "abscess" right groin", possible hematoma. admitted and placed on IV antibiotics. Allergies Allergies Allergy/AdvReac Type Severity Reaction Status Date / Time chocolate flavor AdvReac RASH Verified 12/22/22 09:45 tomato AdvReac RASH Verified 12/22/22 09:45 History of Present Illness History of Present Illness: see above Past Medical History Past Medical History: Anemia, Arthritis, Asthma, COPD, Coronary Artery Disease, Dyslipidemia, GERD, Hypertension, Hypothyroidism and Seizures Past Surgical History Surgical History: Angioplasty/Stents, Bowel Resection, Cholecystectomy, Ortho Surgery and Lithotripsy Family History Family Medical History: Hypertension Social History Does patient currently use any type of tobacco product: No (pt states he quit smoking) Have you used tobacco products in the last 12 months: Yes Type of Tobacco Use: Cigarettes How many years tobacco product used: 60 Does any household member use tobacco: No Alcohol Use: None Drug Use: None Medications Home Medications: chocolate flavor Adverse Reaction (Verified 12/22/22 09:45) RASH tomato Adverse Reaction (Verified 12/22/22 09:45) RASH Atorvastin 80 mg daily enalapril 5 mg BID levothyroxine 250 mcg daily phenytoin 100 mg BID Xarelto 10 mg BID Tramadol 50 mg po BID PRN pain Trelegy/ Ellipta, 1 puff BID Labs Result Diagrams: 01/19/23 04:20 01/19/23 04:20 Labs: Laboratory WBC 13.1 X10^3/uL (3.6-10.0) H 01/19/23 04:20 RBC 3.07 X10^6/uL (4.7-6.0) L 01/19/23 04:20 Hgb 9.4 g/dL (13.5-18.0) L 01/19/23 04:20 Hct 27.8 % (42.0-54.0) L 01/19/23 04:20 MCV 90.6 fL (80.0-100.0) 01/19/23 04:20 MCH 30.7 pg (27.0-34.0) 01/19/23 04:20 MCHC 33.9 g/dL (33.0-35.0) 01/19/23 04:20 RDW 16.5 % (11.6-16.5) 01/19/23 04:20 Plt Count 104 X10^3/uL (150.0-450.0) L 01/19/23 04:20 Plt Count Comment Decreased (ADEQUATE) 01/18/23 23:58 MPV 9.3 fL (7.4-11.0) 01/19/23 04:20 Neut % (Auto) 80.9 % (42.0-75.0) H 01/19/23 04:20 Lymph % (Auto) 10.3 % (21.0-51.0) L 01/19/23 04:20 [place] % (Auto) 8.6 % (0.0-13.0) 01/19/23 04:20 Eos % (Auto) 0.1 % (0.9-2.9) L 01/19/23 04:20 Baso % (Auto) 0.1 % (0.2-1.0) L 01/19/23 04:20 Neut # (Auto) 10.6 x10^3/uL (2.2-4.8) H 01/19/23 04:20 Lymph # (Auto) 1.3 X10^3/uL (1.3-2.9) 01/19/23 04:20 [place] # (Auto) 1.1 x10^3/uL (0.3-0.8) H 01/19/23 04:20 Eos # (Auto) 0.0 x10^3/uL (0.0-0.2) 01/19/23 04:20 Baso # (Auto) 0.0 X10^3/uL (0.0-0.1) 01/19/23 04:20 Absolute Nucleated RBC 0.0 /100WBC 01/19/23 04:20 Total Counted 100 01/18/23 23:58 Neutrophils % (Manual) 82 % (39-76) H 01/18/23 23:58 Lymphocytes % (Manual) 13 % (13-43) 01/18/23 23:58 Monocytes % (Manual) 5 % (4-9) 01/18/23 23:58 Plt Morphology Comment Normal (NORMAL) 01/18/23 23:58 RBC Morphology Normal (NORMAL) 01/18/23 23:58 Sodium 130 mmol/L (136-145) L 01/19/23 04:20 Corrected Sodium TNP 01/19/23 04:20 Potassium 3.5 mmol/L (3.5-5.1) 01/19/23 04:20 Chloride 96 mmol/L (98-107) L 01/19/23 04:20 Carbon Dioxide 24.4 mmol/L (21-32) 01/19/23 04:20 BUN 14 mg/dL (7-18) 01/19/23 04:20 Creatinine 0.77 mg/dL (0.70-1.30) 01/19/23 04:20 Est GFR (MDRD) Af Amer > 60 (>60) 01/19/23 04:20 Est GFR (MDRD) Non-Af > 60 (>60) 01/19/23 04:20 Glucose 94 mg/dL (65-99) 01/19/23 04:20 Lactic Acid 1.0 mmol/L (0.4-2.0) 01/18/23 23:58 Calcium 8.4 mg/dL (8.5-10.1) L 01/19/23 04:20 Corrected Calcium 9.6 mg/dL (8.5-10.1) 01/19/23 04:20 Total Bilirubin 0.30 mg/dL (0.2-1.0) 01/19/23 04:20 AST 45 Units/L (15-37) H 01/19/23 04:20 ALT 39 Units/L (12-78) 01/19/23 04:20 Alkaline Phosphatase 107 Units/L (46-116) 01/19/23 04:20 C-Reactive Protein 412.00 mg/L (0-3.0) H 01/18/23 23:58 Total Protein 6.7 g/dL (6.4-8.2) 01/19/23 04:20 Albumin 2.5 g/dL (3.4-5.0) L 01/19/23 04:20 Globulin 4.2 g/dL (2.5-4.5) 01/19/23 04:20 Albumin/Globulin Ratio 0.6 Ratio (1.1-2.1) L 01/19/23 04:20 Review of Systems Constitutional: See HPI; denies Fever, Chills or Sweats Eyes: No Symptoms Reported ENT: No Symptoms Reported Respiratory: No Symptoms Reported Cardiovascular: No Symptoms Reported Gastrointestinal: No Symptoms Reported Genitourinary: No Symptoms Reported Musculoskeletal: No Symptoms Reported Skin: See HPI Neurological: No Symptoms Reported Physical Exam Vital Signs: Temperature 100.0 F Pulse Rate 90 Respiratory Rate 21 Blood Pressure [Right Arm] 96/65 Blood Pressure 104/60 O2 Sat by Pulse Oximetry 92 Oriented: Normal, Time, Person and Place Eyes: Normal Ear: Normal Nose: Normal; negative Blood Respiratory: Clear Throughout Cardiovascular: Normal and Other (pulsatile mass right groin with mild redness.No open wound) : Normal Auscultation: Bowel Sounds: Normal Palpation: Normal Tenderness: Normal Skin: Other (See H& P. Area of pulsatile mass about 8 cm in diameter.) Musculoskeletal: Normal Psychiatric: Normal Mood Description: Calm Affect: Normal Speech Pattern: Clear Assessment/Plan (1) Aneurysm of right femoral artery: Status: Acute Plan: Patient admitted. Continue IV antibiotics. Will obtain CTA of aorta with bilateral lower extremity runoff to se if this is a pseudoaneurysm vs a true full thickness aneurysm. (2) Right groin pain: Status: Chronic (3) PAD (peripheral artery disease): Status: None Plan: Continue Xarelto and aspirin for now. (4) Thyroid disease: Status: Chronic Plan: usual home medications (5) Pulmonary disease: Status: Chronic Plan: usual home medications (6) GERD (gastroesophageal reflux disease): Status: Chronic Plan: usual home medications (7) Chronic obstructive bronchitis: Status: Chronic Plan: Usual home medications Review H&P Reviewed: Yes Patient was examined?: Yes
--- NOTE | 2023-01-19 18:23 | CT ---
HISTORYRight groin edema, pulsating noted.STUDYCTA AORTA WITH RUNOFFCOMPARISONCT aortogram runoff 12/10/2022TECHNIQUEMultiple CT axial images of the abdomen, pelvis, and lower extremity runoff were obtained before and after using IV contrast. 3D reconstructions utilizing axial MIPS imaging was performed and reviewed. Dose reduction techniques including Automated Exposure Control (AEC) and adjustment of mA and kV were utilized.Stenoses are measured using NASCET criteria.FINDINGSWithout contrast:Atherosclerotic calcification is present in the coronary arteries, aorta, and major branches. Surgical clips are present in the gallbladder fossa from a cholecystectomy. Aortic stent graft is present. Right femoropopliteal artery stent is present.With contrast: Mass in the right groin is much larger. It also enhances consistent with a large pseudoaneurysm. It measures 7.9 cm in longest dimension as measured AP. This measures about 4.5 cm on the study from 12/10/2022.The pseudoaneurysm harbors most of the blood flow so that there is only dilute contrast in the more distal superficial femoral artery and popliteal artery.Aorta is patent with posterior wall atherosclerotic plaque. Aortoiliac stent is widely patent. Celiac axis and superior mesenteric artery are patent. Single patent artery to each kidney.Right lower extremity: I believe the femoropopliteal artery is patent. All 3 vessels of the trifurcation are patent in the proximal calf but I believe there is occlusion of the posterior tibial artery in the mid calf. Anterior tibial artery is the dominant vessel extending into the foot. Peroneal artery to the ankle. This runoff is stable when compared to last month.Left lower extremity: Edematous changes in the left groin have improved since prior study. There is a proximal short-segment occlusion of the superficial femoral artery. The vessel is reconstituted in the proximal thigh but it is very small. The popliteal artery is also small but larger than superficial femoral artery. All 3 branches of trifurcation vessels are patent and extend to the foot. But the dorsalis pedis artery might be occluded. The dominant vessel is the posterior tibial artery extending well into the foot. This runoff is stable when compared to last month.Body: Lung bases are clear. No biliary obstruction. No hydronephrosis. No bowel obstruction.IMPRESSION1. 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 Improved edematous changes in the left groinElectronically signed by: Feroz Freedman (Jan 19, 2023 18:22:06)
[2023-01-20] MEDS: NS 1,000 ML IV 1,000 ML IV SCH ×2 (04:00→21:15)
[2023-01-20] MEDS: ZOSYN VIAL 2.25 GRAMS 2.25 G in NS 100 ML IV 100 ML IV SCH ×3 (05:05→21:15)
[2023-01-20 05:12] LABS: BASOPHILS % (AUTO) 0.1 % (0.2-1.0); EOSINOPHILS % (AUTO) 0.1 % (0.9-2.9); HEMATOCRIT 25.5 % (42.0-54.0); HEMOGLOBIN 8.9 g/dL (13.5-18.0); LYMPHOCYTES # (AUTO) 1.2 X10^3/uL (1.3-2.9); LYMPHOCYTES % (AUTO) 14.2 % (21.0-51.0); MEAN CORPUSCULAR HEMOGLOBIN 31.2 pg (27.0-34.0); MEAN CORPUSCULAR HGB CONC 34.7 g/dL (33.0-35.0); MEAN CORPUSCULAR VOLUME 89.8 fL (80.0-100.0); MEAN PLATELET VOLUME 8.8 fL (7.4-11.0); MONOCYTES # (AUTO) 0.8 x10^3/uL (0.3-0.8); NEUTROPHILS # (AUTO) 6.3 x10^3/uL (2.2-4.8); NEUTROPHILS % (AUTO) 75.6 % (42.0-75.0); PLATELET COUNT 89 X10^3/uL (150.0-450.0); RED BLOOD COUNT 2.84 X10^6/uL (4.7-6.0); RED CELL DISTRIBUTION WIDTH 16.7 % (11.6-16.5); WHITE BLOOD COUNT 8.3 X10^3/uL (3.6-10.0)
[2023-01-20] MEDS: SYNTHROID 125 mcg TAB PO SCH (08:45)
[2023-01-20] MEDS: XARELTO PO SCH ×2 (08:45→20:19)
[2023-01-20] MEDS: LIPITOR TAB 40 MG PO SCH (08:45)
[2023-01-20] MEDS: DILANTIN CAP 100 MG EXT REL PO SCH ×2 (08:46→20:19)
[2023-01-20] MEDS: ULTRAM PO PRN ×2 (08:46→20:20)
[2023-01-20] MEDS: VASOTEC TAB 5 MG PO SCH (08:49)
--- NOTE | 2023-01-20 18:10 | W.DIS.FURT ---
Summary of Discharge Discharge Summary of Date Date of Exam: 01/20/23 Admission Date Date of Admission: 01/18/23 Admission Diagnosis Patient Problems (Updated 01/20/23 @ 18:08 by Ray Servin) Abscess of right groin (Acute) L02.214 Hospital Course: 62 yo male with significant vascular disease including CAD and s/p left common iliac artery stenting, atherectomy and angioplasty right femoral artery. 6 weeks ago b/l iliac stents to resolve > 75 % stenosis of distal aorta. @ weeks post procedure had hematoma and question of infection right groin treated with IV / po antibiotics. Now with pulsatile mass of right groin 8 cm in dameter . CTA show large right femoral pseudoaneurysm. Also has + blood cultures . Patient being transferred to [facility] in [facility]. as I am not in town to deal with this issue . Discusseed with Dr Soriano, vascular surgery who will see the patient after transfer to the hospitalist service at [facility] . I hav spoken to the hospitalist who is accepting the patient. Currently on IV antibiotics and has been hemodynamically stable. Vital Signs: Vital Signs (72 hours) 01/18/23 23:04 01/19/23 01:19 01/19/23 01:21 Temperature 98.8 F Pulse Rate 113 H 95 H Respiratory Rate 20 Blood Pressure 89/44 107/70 O2 Sat by Pulse Oximetry 95 96 Oxygen Delivery Method Room Air 01/19/23 02:28 01/19/23 02:20 01/19/23 03:00 Temperature 99.3 F Pulse Rate 86 Respiratory Rate 20 22 Blood Pressure 103/70 O2 Sat by Pulse Oximetry 95 Oxygen Delivery Method Room Air Room Air 01/19/23 04:00 01/19/23 03:00 01/19/23 05:00 Temperature Pulse Rate 94 H 92 H Respiratory Rate 20 16 Blood Pressure 117/73 104/68 O2 Sat by Pulse Oximetry 95 95 Oxygen Delivery Method Room Air Room Air Room Air 01/19/23 06:00 01/19/23 07:11 01/19/23 07:15 Temperature Pulse Rate 93 H 93 H 92 H Respiratory Rate 22 17 16 Blood Pressure 97/55 O2 Sat by Pulse Oximetry 95 95 95 Oxygen Delivery Method Room Air 01/19/23 08:40 01/19/23 07:00 01/19/23 07:30 Temperature Pulse Rate 90 Respiratory Rate 15 26 H Blood Pressure O2 Sat by Pulse Oximetry 95 Oxygen Delivery Method Room Air 01/19/23 07:45 01/19/23 08:00 01/19/23 08:00 Temperature 99.5 F Pulse Rate 92 H 89 Respiratory Rate 17 Blood Pressure 105/66 O2 Sat by Pulse Oximetry 94 L 94 L Oxygen Delivery Method 01/19/23 08:15 01/19/23 08:30 01/19/23 08:45 Temperature Pulse Rate 90 93 H 92 H Respiratory Rate 21 24 20 Blood Pressure O2 Sat by Pulse Oximetry 94 L 92 L 94 L Oxygen Delivery Method 01/19/23 08:36 01/19/23 09:00 01/19/23 09:00 Temperature Pulse Rate 93 H Respiratory Rate 20 Blood Pressure 117/64 O2 Sat by Pulse Oximetry 94 L Oxygen Delivery Method Room Air 01/19/23 09:15 01/19/23 09:30 01/19/23 09:45 Temperature Pulse Rate 97 H 92 H 93 H Respiratory Rate 22 23 24 Blood Pressure O2 Sat by Pulse Oximetry 93 L 95 94 L Oxygen Delivery Method 01/19/23 09:40 01/19/23 10:00 01/19/23 10:00 Temperature Pulse Rate 91 H Respiratory Rate 15 28 H Blood Pressure 97/69 O2 Sat by Pulse Oximetry 95 Oxygen Delivery Method 01/19/23 10:15 01/19/23 10:30 01/19/23 10:45 Temperature Pulse Rate 89 90 89 Respiratory Rate 18 23 21 Blood Pressure O2 Sat by Pulse Oximetry 95 95 93 L Oxygen Delivery Method 01/19/23 11:00 01/19/23 11:00 01/19/23 11:15 Temperature Pulse Rate 87 86 Respiratory Rate 24 21 Blood Pressure 96/65 O2 Sat by Pulse Oximetry 94 L 95 Oxygen Delivery Method 01/19/23 11:30 01/19/23 11:45 01/19/23 12:00 Temperature Pulse Rate 89 85 Respiratory Rate 25 H 22 Blood Pressure 102/64 O2 Sat by Pulse Oximetry 94 L 94 L Oxygen Delivery Method 01/19/23 12:00 01/19/23 12:15 01/19/23 12:30 Temperature Pulse Rate 89 87 88 Respiratory Rate 19 21 22 Blood Pressure O2 Sat by Pulse Oximetry 93 L 95 97 Oxygen Delivery Method 01/19/23 12:45 01/19/23 13:00 01/19/23 13:00 Temperature Pulse Rate 90 93 H Respiratory Rate 22 25 H Blood Pressure 95/63 O2 Sat by Pulse Oximetry 95 97 Oxygen Delivery Method 01/19/23 13:15 01/19/23 13:30 01/19/23 13:45 Temperature Pulse Rate 96 H 93 H 97 H Respiratory Rate 16 18 23 Blood Pressure O2 Sat by Pulse Oximetry 98 94 L 94 L Oxygen Delivery Method 01/19/23 13:58 01/19/23 14:00 01/19/23 14:01 Temperature Pulse Rate 96 H 94 H Respiratory Rate 23 18 Blood Pressure 88/61 O2 Sat by Pulse Oximetry 95 95 Oxygen Delivery Method 01/19/23 14:15 01/19/23 14:30 01/19/23 14:45 Temperature Pulse Rate 97 H 95 H 94 H Respiratory Rate 29 H 35 H 26 H Blood Pressure O2 Sat by Pulse Oximetry 94 L 96 97 Oxygen Delivery Method 01/19/23 15:00 01/19/23 15:00 01/19/23 15:15 Temperature Pulse Rate 93 H 92 H Respiratory Rate 24 23 Blood Pressure 95/63 O2 Sat by Pulse Oximetry 95 95 Oxygen Delivery Method 01/19/23 15:30 01/19/23 16:19 01/19/23 15:45 Temperature 100.0 F H Pulse Rate 91 H 91 H Respiratory Rate 23 20 Blood Pressure O2 Sat by Pulse Oximetry 96 94 L Oxygen Delivery Method 01/19/23 16:00 01/19/23 16:00 01/19/23 16:15 Temperature Pulse Rate 96 H 92 H Respiratory Rate 24 31 H Blood Pressure 104/60 O2 Sat by Pulse Oximetry 97 96 Oxygen Delivery Method 01/19/23 16:30 01/19/23 16:53 01/19/23 17:00 Temperature Pulse Rate 90 104 H 88 Respiratory Rate 16 18 Blood Pressure O2 Sat by Pulse Oximetry 98 93 L Oxygen Delivery Method Room Air 01/19/23 17:15 01/19/23 17:23 01/19/23 17:23 Temperature Pulse Rate 90 92 H Respiratory Rate 21 21 Blood Pressure 102/59 O2 Sat by Pulse Oximetry 92 L 94 L Oxygen Delivery Method 01/19/23 17:30 01/19/23 17:45 01/19/23 18:00 Temperature Pulse Rate 92 H 95 H 96 H Respiratory Rate 17 24 32 H Blood Pressure O2 Sat by Pulse Oximetry 95 98 97 Oxygen Delivery Method 01/19/23 18:15 01/19/23 18:30 01/19/23 18:37 Temperature Pulse Rate 95 H 94 H Respiratory Rate 38 H 18 Blood Pressure 94/63 O2 Sat by Pulse Oximetry 96 95 Oxygen Delivery Method 01/19/23 18:37 01/19/23 18:45 01/19/23 19:00 Temperature Pulse Rate 92 H 92 H 88 Respiratory Rate 22 21 14 Blood Pressure 101/67 O2 Sat by Pulse Oximetry 96 97 96 Oxygen Delivery Method 01/19/23 20:00 01/19/23 19:00 01/19/23 20:05 Temperature 100.0 F H Pulse Rate 85 Respiratory Rate 20 Blood Pressure 96/66 O2 Sat by Pulse Oximetry 96 Oxygen Delivery Method Room Air Room Air 01/19/23 20:05 01/19/23 21:09 01/19/23 21:00 Temperature Pulse Rate 90 89 Respiratory Rate 18 22 Blood Pressure 102/72 O2 Sat by Pulse Oximetry 95 95 Oxygen Delivery Method 01/19/23 22:00 01/19/23 23:00 01/19/23 22:09 Temperature Pulse Rate 88 85 Respiratory Rate 23 22 18 Blood Pressure 108/71 102/66 O2 Sat by Pulse Oximetry 95 95 Oxygen Delivery Method 01/20/23 00:00 01/20/23 01:00 01/20/23 02:00 Temperature 99.4 F Pulse Rate 88 83 84 Respiratory Rate 20 22 24 Blood Pressure 100/64 96/64 102/69 O2 Sat by Pulse Oximetry 95 95 95 Oxygen Delivery Method 01/20/23 03:00 01/20/23 04:00 01/20/23 05:00 Temperature 99.8 F H Pulse Rate 84 91 H 89 Respiratory Rate 24 18 23 Blood Pressure 95/54 101/70 106/69 O2 Sat by Pulse Oximetry 96 95 96 Oxygen Delivery Method 01/20/23 06:00 01/19/23 22:00 01/19/23 22:01 Temperature Pulse Rate 81 86 87 Respiratory Rate 24 27 H 24 Blood Pressure 102/67 O2 Sat by Pulse Oximetry 96 94 L 94 L Oxygen Delivery Method 01/19/23 22:01 01/19/23 22:15 01/19/23 22:30 Temperature Pulse Rate 86 88 Respiratory Rate 23 26 H Blood Pressure 108/71 O2 Sat by Pulse Oximetry 94 L 95 Oxygen Delivery Method 01/19/23 22:45 01/19/23 23:00 01/19/23 23:08 Temperature Pulse Rate 87 86 83 Respiratory Rate 24 24 23 Blood Pressure O2 Sat by Pulse Oximetry 94 L 93 L 93 L Oxygen Delivery Method 01/19/23 23:08 01/19/23 23:15 01/19/23 23:30 Temperature Pulse Rate 85 94 H Respiratory Rate 23 40 H Blood Pressure 102/66 O2 Sat by Pulse Oximetry 93 L 92 L Oxygen Delivery Method 01/19/23 23:45 01/20/23 00:00 01/20/23 00:00 Temperature Pulse Rate 86 85 Respiratory Rate 24 24 Blood Pressure 100/64 O2 Sat by Pulse Oximetry 95 95 Oxygen Delivery Method 01/20/23 00:15 01/20/23 00:30 01/20/23 00:45 Temperature Pulse Rate 84 84 83 Respiratory Rate 25 H 23 20 Blood Pressure O2 Sat by Pulse Oximetry 92 L 93 L 95 Oxygen Delivery Method 01/20/23 01:00 01/20/23 01:00 01/20/23 01:15 Temperature Pulse Rate 82 87 Respiratory Rate 18 25 H Blood Pressure 96/64 O2 Sat by Pulse Oximetry 94 L 93 L Oxygen Delivery Method 01/20/23 01:30 01/20/23 01:45 01/20/23 02:00 Temperature Pulse Rate 81 83 Respiratory Rate 25 H 22 Blood Pressure 102/69 O2 Sat by Pulse Oximetry 93 L 94 L Oxygen Delivery Method 01/20/23 02:00 01/20/23 02:15 01/20/23 02:30 Temperature Pulse Rate 84 88 80 Respiratory Rate 22 28 H 29 H Blood Pressure O2 Sat by Pulse Oximetry 93 L 96 96 Oxygen Delivery Method 01/20/23 02:45 01/20/23 03:00 01/20/23 03:00 Temperature Pulse Rate 83 85 Respiratory Rate 29 H 31 H Blood Pressure 95/54 O2 Sat by Pulse Oximetry 96 94 L Oxygen Delivery Method 01/20/23 03:15 01/20/23 03:30 01/20/23 03:45 Temperature Pulse Rate 79 84 86 Respiratory Rate 22 35 H 38 H Blood Pressure O2 Sat by Pulse Oximetry 94 L 93 L 97 Oxygen Delivery Method 01/20/23 04:00 01/20/23 04:00 01/20/23 04:15 Temperature Pulse Rate 82 81 Respiratory Rate 16 23 Blood Pressure 101/70 O2 Sat by Pulse Oximetry 93 L 95 Oxygen Delivery Method 01/20/23 04:30 01/20/23 04:45 01/20/23 05:00 Temperature Pulse Rate 83 86 Respiratory Rate 22 22 Blood Pressure 106/69 O2 Sat by Pulse Oximetry 95 93 L Oxygen Delivery Method 01/20/23 05:00 01/20/23 05:15 01/20/23 05:30 Temperature Pulse Rate 86 84 88 Respiratory Rate 22 18 51 H Blood Pressure O2 Sat by Pulse Oximetry 94 L 96 97 Oxygen Delivery Method 01/20/23 05:45 01/20/23 06:00 01/20/23 06:00 Temperature Pulse Rate 81 80 Respiratory Rate 23 27 H Blood Pressure 102/67 O2 Sat by Pulse Oximetry 96 96 Oxygen Delivery Method 01/20/23 06:15 01/20/23 06:30 01/20/23 06:45 Temperature Pulse Rate 88 86 91 H Respiratory Rate 35 H 36 H 17 Blood Pressure O2 Sat by Pulse Oximetry 98 96 96 Oxygen Delivery Method 01/20/23 07:00 01/20/23 07:00 01/20/23 07:15 Temperature Pulse Rate 87 91 H Respiratory Rate 39 H 40 H Blood Pressure 101/76 O2 Sat by Pulse Oximetry 96 97 Oxygen Delivery Method 01/20/23 07:58 01/20/23 08:46 01/20/23 07:00 Temperature Pulse Rate Respiratory Rate 16 Blood Pressure O2 Sat by Pulse Oximetry Oxygen Delivery Method Room Air Room Air 01/20/23 07:30 01/20/23 07:45 01/20/23 08:00 Temperature Pulse Rate 91 H 84 Respiratory Rate 35 H 30 H Blood Pressure 95/68 O2 Sat by Pulse Oximetry 95 99 Oxygen Delivery Method 01/20/23 08:00 01/20/23 08:15 01/20/23 08:30 Temperature 98.3 F Pulse Rate 85 90 88 Respiratory Rate 11 L 20 18 Blood Pressure O2 Sat by Pulse Oximetry 97 98 98 Oxygen Delivery Method 01/20/23 08:45 01/20/23 09:00 01/20/23 09:00 Temperature Pulse Rate 97 H 86 Respiratory Rate 34 H 20 Blood Pressure 107/66 O2 Sat by Pulse Oximetry 100 97 Oxygen Delivery Method 01/20/23 09:15 01/20/23 09:30 01/20/23 09:45 Temperature Pulse Rate 92 H 86 87 Respiratory Rate 35 H 18 21 Blood Pressure O2 Sat by Pulse Oximetry 96 98 98 Oxygen Delivery Method 01/20/23 10:00 01/20/23 10:00 01/20/23 10:15 Temperature Pulse Rate 96 H 87 Respiratory Rate 40 H 25 H Blood Pressure 98/69 O2 Sat by Pulse Oximetry 98 97 Oxygen Delivery Method 01/20/23 10:30 01/20/23 10:45 01/20/23 11:00 Temperature Pulse Rate 83 93 H Respiratory Rate 26 H 45 H Blood Pressure 101/67 O2 Sat by Pulse Oximetry 96 95 Oxygen Delivery Method 01/20/23 11:00 01/20/23 11:15 01/20/23 11:30 Temperature Pulse Rate 84 86 86 Respiratory Rate 27 H 24 27 H Blood Pressure O2 Sat by Pulse Oximetry 97 97 96 Oxygen Delivery Method 01/20/23 11:45 01/20/23 12:00 01/20/23 12:00 Temperature 98.3 F Pulse Rate 81 83 Respiratory Rate 21 29 H Blood Pressure 99/58 O2 Sat by Pulse Oximetry 98 93 L Oxygen Delivery Method 01/20/23 12:15 01/20/23 12:30 01/20/23 12:45 Temperature Pulse Rate 80 93 H 91 H Respiratory Rate 21 29 H 33 H Blood Pressure O2 Sat by Pulse Oximetry 98 93 L 88 L Oxygen Delivery Method 01/20/23 13:00 01/20/23 13:00 01/20/23 09:46 Temperature Pulse Rate 82 Respiratory Rate 18 16 Blood Pressure 94/63 O2 Sat by Pulse Oximetry 95 Oxygen Delivery Method 01/20/23 13:15 01/20/23 13:30 01/20/23 13:45 Temperature Pulse Rate 87 87 87 Respiratory Rate 18 23 23 Blood Pressure O2 Sat by Pulse Oximetry 94 L 93 L 96 Oxygen Delivery Method 01/20/23 14:00 01/20/23 14:00 01/20/23 14:15 Temperature Pulse Rate 90 90 Respiratory Rate 24 22 Blood Pressure 111/68 O2 Sat by Pulse Oximetry 96 96 Oxygen Delivery Method 01/20/23 14:30 01/20/23 14:45 01/20/23 15:00 Temperature Pulse Rate 86 96 H Respiratory Rate 23 38 H Blood Pressure 115/61 O2 Sat by Pulse Oximetry 95 96 Oxygen Delivery Method 01/20/23 15:00 01/20/23 15:15 01/20/23 15:30 Temperature Pulse Rate 89 88 88 Respiratory Rate 22 21 33 H Blood Pressure O2 Sat by Pulse Oximetry 97 97 96 Oxygen Delivery Method 01/20/23 15:45 01/20/23 16:00 01/20/23 16:00 Temperature Pulse Rate 88 87 Respiratory Rate 24 16 Blood Pressure 106/67 O2 Sat by Pulse Oximetry 97 98 Oxygen Delivery Method 01/20/23 16:15 01/20/23 16:30 01/20/23 16:45 Temperature 99.2 F Pulse Rate 84 89 84 Respiratory Rate 26 H 32 H 23 Blood Pressure O2 Sat by Pulse Oximetry 97 91 L 91 L Oxygen Delivery Method 01/20/23 17:00 01/20/23 17:00 Temperature Pulse Rate 88 Respiratory Rate 23 Blood Pressure 110/73 O2 Sat by Pulse Oximetry 100 Oxygen Delivery Method Labs: Laboratory Last Values WBC 8.3 X10^3/uL (3.6-10.0) 01/20/23 04:26 RBC 2.84 X10^6/uL (4.7-6.0) L 01/20/23 04:26 Hgb 8.9 g/dL (13.5-18.0) L 01/20/23 04:26 Hct 25.5 % (42.0-54.0) L 01/20/23 04:26 MCV 89.8 fL (80.0-100.0) 01/20/23 04:26 MCH 31.2 pg (27.0-34.0) 01/20/23 04:26 MCHC 34.7 g/dL (33.0-35.0) 01/20/23 04:26 RDW 16.7 % (11.6-16.5) H 01/20/23 04:26 Plt Count 89 X10^3/uL (150.0-450.0) L 01/20/23 04:26 Plt Count Comment Decreased (ADEQUATE) 01/18/23 23:58 MPV 8.8 fL (7.4-11.0) 01/20/23 04:26 Neut % (Auto) 75.6 % (42.0-75.0) H 01/20/23 04:26 Lymph % (Auto) 14.2 % (21.0-51.0) L 01/20/23 04: [place] % (Auto) 10.0 % (0.0-13.0) 01/20/23 04:26 Eos % (Auto) 0.1 % (0.9-2.9) L 01/20/23 04:26 Baso % (Auto) 0.1 % (0.2-1.0) L 01/20/23 04:26 Neut # (Auto) 6.3 x10^3/uL (2.2-4.8) H 01/20/23 04:26 Lymph # (Auto) 1.2 X10^3/uL (1.3-2.9) L 01/20/23 04:26 [place] # (Auto) 0.8 x10^3/uL (0.3-0.8) 01/20/23 04:26 Eos # (Auto) 0.0 x10^3/uL (0.0-0.2) 01/20/23 04: Baso # (Auto) 0.0 X10^3/uL (0.0-0.1) 01/20/23 04:26 Absolute Nucleated RBC 0.0 /100WBC 01/20/23 04:26 Total Counted 100 01/18/23 23:58 Neutrophils % (Manual) 82 % (39-76) H 01/18/23 23:58 Lymphocytes % (Manual) 13 % (13-43) 01/18/23 23:58 Monocytes % (Manual) 5 % (4-9) 01/18/23 23:58 Plt Morphology Comment Normal (NORMAL) 01/18/23 23:58 RBC Morphology Normal (NORMAL) 01/18/23 23:58 Sodium 130 mmol/L (136-145) L 01/19/23 04:20 Corrected Sodium TNP 01/19/23 04:20 Potassium 3.5 mmol/L (3.5-5.1) 01/19/23 04:20 Chloride 96 mmol/L (98-107) L 01/19/23 04:20 Carbon Dioxide 24.4 mmol/L (21-32) 01/19/23 04:20 BUN 14 mg/dL (7-18) 01/19/23 04:20 Creatinine 0.77 mg/dL (0.70-1.30) 01/19/23 04:20 Est GFR (MDRD) Af Amer > 60 (>60) 01/19/23 04:20 Est GFR (MDRD) Non-Af > 60 (>60) 01/19/23 04:20 Glucose 94 mg/dL (65-99) 01/19/23 04:20 Lactic Acid 1.0 mmol/L (0.4-2.0) 01/18/23 23:58 Calcium 8.4 mg/dL (8.5-10.1) L 01/19/23 04:20 Corrected Calcium 9.6 mg/dL (8.5-10.1) 01/19/23 04:20 Total Bilirubin 0.30 mg/dL (0.2-1.0) 01/19/23 04:20 AST 45 Units/L (15-37) H 01/19/23 04:20 ALT 39 Units/L (12-78) 01/19/23 04:20 Alkaline Phosphatase 107 Units/L (46-116) 01/19/23 04:20 C-Reactive Protein 412.00 mg/L (0-3.0) H 01/18/23 23:58 Total Protein 6.7 g/dL (6.4-8.2) 01/19/23 04:20 Albumin 2.5 g/dL (3.4-5.0) L 01/19/23 04:20 Globulin 4.2 g/dL (2.5-4.5) 01/19/23 04:20 Albumin/Globulin Ratio 0.6 Ratio (1.1-2.1) L 01/19/23 04:20 Reason For Visit: ABSCESS RT GROIN Discharge Date Discharge Date: 01/20/23 Discharge Diagnosis All Active Problems (Updated 01/20/23 @ 18:08 by Ray Servin) Positive blood cultures (Acute) Aneurysm of right femoral artery (Acute) Abscess of right groin (Acute) Right groin pain (Chronic) Encounter for wound care (Acute) History of recent blood transfusion (Acute) Anemia (Acute) Thyroid disease (Chronic) Pulmonary disease (Chronic) GERD (gastroesophageal reflux disease) (Chronic) DJD (degenerative joint disease) (Chronic) Hematoma of groin (Acute) Acute hyponatremia (Acute) Hematoma following procedure (Acute) Chronic obstructive bronchitis (Chronic) Hypertension (Chronic) Plan of Treatment: Continue with present treatment and follow up plan. Pt is to keep follow up appointment as instructed and take medications as ordered. Discharge Medications Discharge Medications: chocolate flavor Adverse Reaction (Verified 12/22/22 09:45) RASH tomato Adverse Reaction (Verified 12/22/22 09:45) RASH Discharge Disposition Assessment: as above Discharge Plan Discharge Plan Hospital Course: 62 yo male with significant vascular disease including CAD and s/p left common iliac artery stenting, atherectomy and angioplasty right femoral artery. 6 weeks ago b/l iliac stents to resolve > 75 % stenosis of distal aorta. @ weeks post procedure had hematoma and question of infection right groin treated with IV / po antibiotics. Now with pulsatile mass of right groin 8 cm in dameter . CTA show large right femoral pseudoaneurysm. Also has + blood cultures . Patient being transferred to [facility] in [facility]. as I am not in town to deal with this issue . Discusseed with Dr Soriano, vascular surgery who will see the patient after transfer to the hospitalist service at [facility] . I hav spoken to the hospitalist who is accepting the patient. Currently on IV antibiotics and has been hemodynamically stable. Patient Disposition: 01 HOME, SELF-CARE Condition: Stable Health Concerns: Post Hospitalization: new medications and changes needed to prevent readmission or further decline. Pt educated and given instructions on all concerns. Plan of Treatment: Continue with present treatment and follow up plan. Pt is to keep follow up appointment as instructed and take medications as ordered. Assessment: as above Prescriptions: Continued phenytoin sodium extended [Dilantin Extended] 100 mg capsule 100 mg PO BID MDD 4 30 Days Qty: 120 2RF Rx Instructions: 2 caps BID Xarelto 10 mg tablet 10 mg PO BID MDD 2 Qty: 60 0RF doxycycline hyclate 50 mg tablet 50 mg PO BID MDD 2 10 Days Qty: 20 0RF tramadol 50 mg tablet 50 mg PO BID MDD 2 PRN (Reason: pain) 10 Days Qty: 20 0RF atorvastatin 40 mg Tablet 80 mg PO QDAY enalapril maleate 5 mg Tablet 5 mg PO BID levothyroxine [Synthroid] 125 mcg Tablet 250 mcg PO QDAY Trelegy Ellipta 100-62.5-25 mcg Blister With Device 1 inh INHALATION QDAY Follow ups/Referrals Follow ups/Referrals: MAURICIO LAMAR [Primary Care Provider] - 3 days Instructions Stand Alone Forms: Excuse From Work or School
[2023-01-21] MEDS: VASOTEC TAB 5 MG PO SCH ×2 (00:05→08:11)
[2023-01-21] MEDS ORDERED: DUONEB 0.5 MG/3 MG (3 mL) NEB ONE (01:25)
[2023-01-21] MEDS: ZOSYN VIAL 2.25 GRAMS 2.25 G in NS 100 ML IV 100 ML IV SCH (05:03)
[2023-01-21] MEDS: ULTRAM PO PRN (05:03)
[2023-01-21] MEDS: NS 1,000 ML IV 1,000 ML IV SCH (06:31)
[2023-01-21] MEDS: DILANTIN CAP 100 MG EXT REL PO SCH (08:10)
[2023-01-21] MEDS: SYNTHROID 125 mcg TAB PO SCH (08:10)
[2023-01-21] MEDS: XARELTO PO SCH (08:11)
[2023-01-21] MEDS: LIPITOR TAB 40 MG PO SCH (08:11)
[2023-01-21 09:55] VITALS: BP 142/71
--- NOTE | 2023-01-21 10:10 | DR.PROGNOT ---
HOSPITAL PROGRESS NOTE Progress Note for Day of: Progress Note Date: 01/20/23 Chief Complaint Chief Complaint: c/p painful swelling RT groin . moderate pain RT groin and mild pain RT leg . no chills or fever . blood culture was positive .WBC 13.1. CT showed pseudoaneurysm of the RT femoral artery in the groin .larger compared with previous study .. Past Medical Family Social History Past Med/Fam/Surg Hx: No changes since H&P Allergies: Allergies chocolate flavor Adverse Reaction (Verified 12/22/22 09:45) RASH tomato Adverse Reaction (Verified 12/22/22 09:45) RASH Vital Signs Vital Signs: Temperature 99.0 F Pulse Rate 80 Respiratory Rate 23 Blood Pressure [Right Arm] 96/65 Blood Pressure 101/60 O2 Sat by Pulse Oximetry 98 Physical Exam Oriented: Normal, Time, Person and Place Eyes: Normal Ear: Normal Nose: Normal; negative Blood Cardiovascular: Normal and Other (pulsatile mass right groin with mild redness.No open wound) : Normal GI:Auscultation: Normal GI:Palpation: Normal GI: Tenderness: Normal Skin: Other (See H& P. Area of pulsatile mass about 8 cm in diameter.) Musculoskeletal: Normal and Leg (RT leg : 1 + edema , no discoleration or cyanosis .distal pulses are positive with Doppler .) Psychiatric: Normal Mood Description: Calm Affect: Normal Speech Pattern: Clear and Appropriate Laboratory and Diagnostics Result Diagrams: 01/20/23 04:26 01/19/23 04:20 Labs: 01/19/23 00:22 Blood Blood Culture - Final Methicillin Resis Staph Aureus 01/19/23 00:16 Blood Blood Culture - Final Methicillin Resis Staph Aureus Laboratory WBC 8.3 X10^3/uL (3.6-10.0) 01/20/23 04:26 RBC 2.84 X10^6/uL (4.7-6.0) L 01/20/23 04:26 Hgb 8.9 g/dL (13.5-18.0) L 01/20/23 04:26 Hct 25.5 % (42.0-54.0) L 01/20/23 04:26 MCV 89.8 fL (80.0-100.0) 01/20/23 04:26 MCH 31.2 pg (27.0-34.0) 01/20/23 04: MCHC 34.7 g/dL (33.0-35.0) 01/20/23 04: RDW 16.7 % (11.6-16.5) H 01/20/23 04: Plt Count 89 X10^3/uL (150.0-450.0) L 01/20/23 04:26 Plt Count Comment Decreased (ADEQUATE) 01/18/23 23:58 MPV 8.8 fL (7.4-11.0) 01/20/23 04: Neut % (Auto) 75.6 % (42.0-75.0) H 01/20/23 04: Lymph % (Auto) 14.2 % (21.0-51.0) L 01/20/23 04: [place] % (Auto) 10.0 % (0.0-13.0) 01/20/23 04: Eos % (Auto) 0.1 % (0.9-2.9) L 01/20/23 04: Baso % (Auto) 0.1 % (0.2-1.0) L 01/20/23 04: Neut # (Auto) 6.3 x10^3/uL (2.2-4.8) H 01/20/23 04:26 Lymph # (Auto) 1.2 X10^3/uL (1.3-2.9) L 01/20/23 04:26 [place] # (Auto) 0.8 x10^3/uL (0.3-0.8) 01/20/23 04: Eos # (Auto) 0.0 x10^3/uL (0.0-0.2) 01/20/23 04:26 Baso # (Auto) 0.0 X10^3/uL (0.0-0.1) 01/20/23 04: Absolute Nucleated RBC 0.0 /100WBC 01/20/23 04: Total Counted 100 01/18/23 23:58 Neutrophils % (Manual) 82 % (39-76) H 01/18/23 23:58 Lymphocytes % (Manual) 13 % (13-43) 01/18/23 23:58 Monocytes % (Manual) 5 % (4-9) 01/18/23 23:58 Plt Morphology Comment Normal (NORMAL) 01/18/23 23:58 RBC Morphology Normal (NORMAL) 01/18/23 23:58 Sodium 130 mmol/L (136-145) L 01/19/23 04:20 Corrected Sodium TNP 01/19/23 04:20 Potassium 3.5 mmol/L (3.5-5.1) 01/19/23 04:20 Chloride 96 mmol/L (98-107) L 01/19/23 04:20 Carbon Dioxide 24.4 mmol/L (21-32) 01/19/23 04:20 BUN 14 mg/dL (7-18) 01/19/23 04:20 Creatinine 0.77 mg/dL (0.70-1.30) 01/19/23 04:20 Est GFR (MDRD) Af Amer > 60 (>60) 01/19/23 04:20 Est GFR (MDRD) Non-Af > 60 (>60) 01/19/23 04:20 Glucose 94 mg/dL (65-99) 01/19/23 04:20 Lactic Acid 1.0 mmol/L (0.4-2.0) 01/18/23 23:58 Calcium 8.4 mg/dL (8.5-10.1) L 01/19/23 04:20 Corrected Calcium 9.6 mg/dL (8.5-10.1) 01/19/23 04:20 Total Bilirubin 0.30 mg/dL (0.2-1.0) 01/19/23 04:20 AST 45 Units/L (15-37) H 01/19/23 04:20 ALT 39 Units/L (12-78) 01/19/23 04:20 Alkaline Phosphatase 107 Units/L (46-116) 01/19/23 04:20 C-Reactive Protein 412.00 mg/L (0-3.0) H 01/18/23 23:58 Total Protein 6.7 g/dL (6.4-8.2) 01/19/23 04:20 Albumin 2.5 g/dL (3.4-5.0) L 01/19/23 04:20 Globulin 4.2 g/dL (2.5-4.5) 01/19/23 04:20 Albumin/Globulin Ratio 0.6 Ratio (1.1-2.1) L 01/19/23 04:20 Assessment and Plan 1: expanding pseudoaneurysm RT femoral artery compared with recent study . 2: positive blood culture . 3: PVD ,s/p stenting . d/w Dr Servin . Pt will be transferred [facility] . he is on IV ABT and rest . Problem Patient Problems: Patient Problems (Updated 01/20/23 @ 18:08 by Ray Servin) Abscess of right groin (Acute) L02.214
== END 2023-01-21 09:43 | disposition short-term general hospital (02) | DRG 603 ==
LOC: ICU 23:03 → ER 23:03 → OBSVTOIN 01-19 01:29 → ICU 01-19 02:42
PROVIDERS: ADMIT Surgery; ATTEND Surgery
DX: I73.9 Peripheral vascular disease, unspecified; I10 Essential (primary) hypertension; I72.4 Aneurysm of artery of lower extremity; R60.0 Localized edema; B95.62 Methicillin resistant Staphylococcus aureus infection as the cause of diseases classified elsewhere; J44.9 Chronic obstructive pulmonary disease, unspecified; E03.8 Other specified hypothyroidism; R79.82 Elevated C-reactive protein (CRP); L02.214 Cutaneous abscess of groin; Z98.890 Other specified postprocedural states; I25.10 Atherosclerotic heart disease of native coronary artery without angina pectoris; R10.31 Right lower quadrant pain; E78.2 Mixed hyperlipidemia; K21.9 Gastro-esophageal reflux disease without esophagitis

== ENCOUNTER 2023-01-26 17:49 | Inpatient (IN) ==
[2023-01-26] MEDS ORDERED: HEPARIN SODIUM IN D5W 25,000 UNITS/500 ML BAG IV PRN (18:26)
[2023-01-26] MEDS: DILAUDID INJ IVP PRN (18:52)
[2023-01-26] MEDS: LR 1,000 ML IV 1,000 ML IV SCH (18:52)
[2023-01-26 18:57] VITALS: BMI 21.1
[2023-01-26 19:03] LABS: INR 1.08 (0.8-1.3)
[2023-01-26] MEDS ORDERED: HEPARIN SODIUM INJ 5000 UNITS IVP ONE (19:52)
[2023-01-26 20:48] LABS: HEMATOCRIT 25.5 % (42.0-54.0); HEMOGLOBIN 8.7 g/dL (13.5-18.0)
[2023-01-26] MEDS: PULMICORT NEB TX 0.5 MG NEB SCH (21:15)
[2023-01-27] MEDS: DILAUDID INJ IVP PRN ×2 (01:26→11:37)
[2023-01-27] MEDS ORDERED: HEPARIN SODIUM INJ 5000 UNITS IVP ONE ×2 (03:14→10:46)
--- NOTE | 2023-01-27 06:11 | DR.H&P ---
H&P History & Physical for Day of: H&P Date: 01/26/23 Chief Complaint Chief Complaint: Right groin infected pseudoaneurysm. Allergies Allergies Allergy/AdvReac Type Severity Reaction Status Date / Time chocolate flavor AdvReac RASH Verified 12/22/22 09:45 tomato AdvReac RASH Verified 12/22/22 09:45 History of Present Illness History of Present Illness: 62 year old male with significant peripheral vascular disease and past history of tobacco abuse ( he stopped smoking 1 month ago). He has had left common iliac artery stenting, right superficial femoral atherectomy and Drug coated balloon angioplasty. He had 75% stenosis of the distal aorta requiring two long iliac stents placed to treat the distal aortic stenosis. When the aorta was repaired approach was made through bilateral open groin incisions and open approach to femoral arteries. He had a complication of a hematoma on the right side one week post op which resolved at the time. He presented last week with a pulsatile mass in the right groin and positive blood cultures consistent with an infected femoral artery pseudoaneurysm ( as seen on CTA). I was out of town after admitting him and it was reported to be getting larger. Patient transferred to Doctor Soriano at [facility] in [place] with resection of the diseased femoral artery and placement of a [place]-Galdino graft and placement of wound vacuum and a Sartorius muscle flap. That became occluded and required repeat surgery and placement of a Dacron graft with the Sartorius flap and wound vacuum. He is being transferred back from [place] for Continued Care. He has a warm right foot and biphasic Doppler signals at the right ankle . Past Medical History Past Medical History: Anemia, Arthritis, Asthma, COPD, Coronary Artery Disease, Dyslipidemia, GERD, Hypertension, Hypothyroidism and Seizures Past Surgical History Surgical History: Angioplasty/Stents, Bowel Resection, Cholecystectomy, Ortho Surgery and Lithotripsy Family History Family Medical History: Hypertension Social History Does patient currently use any type of tobacco product: No Have you used tobacco products in the last 12 months: Yes (11/23/22) Type of Tobacco Use: Cigarettes How many years tobacco product used: 1 Alcohol Use: None Medications Home Medications: chocolate flavor Adverse Reaction (Verified 12/22/22 09:45) RASH tomato Adverse Reaction (Verified 12/22/22 09:45) RASH Labs Result Diagrams: 01/26/23 18:35 Labs: Laboratory Hgb 8.7 g/dL (13.5-18.0) L 01/26/23 18:35 Hct 25.5 % (42.0-54.0) L 01/26/23 18:35 Plt Count 294 X10^3/uL (150.0-450.0) 01/26/23 18:35 PT 13.8 SECONDS (11.8-14.3) 01/26/23 18:35 INR Target Range - 01/26/23 18:35 INR 1.08 (0.8-1.3) 01/26/23 18:35 APTT 27.5 SECONDS (22.9-36.5) 01/26/23 18:35 PTT Comment - 01/26/23 18:35 Review of Systems Constitutional: See HPI Eyes: No Symptoms Reported ENT: No Symptoms Reported Respiratory: No Symptoms Reported Cardiovascular: No Symptoms Reported Gastrointestinal: No Symptoms Reported Genitourinary: No Symptoms Reported Musculoskeletal: See HPI Skin: See HPI Neurological: No Symptoms Reported Physical Exam Vital Signs: Temperature 98.5 F Pulse Rate 87 Respiratory Rate 31 Blood Pressure [Right Arm] 96/65 Blood Pressure 100/69 O2 Sat by Pulse Oximetry 100 Hgb=8.7, Plts= 294 k, K+=3.5, Cr=0.77, WBC=8.3 Oriented: Normal, Time, Person and Place Eyes: Normal Ear: Normal Nose: Normal Throat: Normal Respiratory: Clear Throughout Cardiovascular: Normal : Normal Auscultation: Bowel Sounds: Normal Palpation: Normal Tenderness: Normal Skin: Wound (open wound rigth groin 10x 6 x 4 cm with wound vacuum in place) Musculoskeletal: Normal Psychiatric: Normal Mood Description: Calm Affect: Normal Speech Pattern: Clear Assessment/Plan (1) Aneurysm of right femoral artery: Status: Acute Plan: Continue IV antibiotics, heparin and wound vacuum and observe closely in ICU for any significant bleeding (2) Positive blood cultures: Status: Acute (3) Thyroid disease: Status: Chronic (4) Pulmonary disease: Status: Chronic (5) GERD (gastroesophageal reflux disease): Status: Chronic (6) Hypertension: Status: Chronic
[2023-01-27] MEDS ORDERED: VANCOMYCIN IV *PREMIX 1 G/200 ML BAG 1 G/200 ML PIGGYBACK IV SCH (06:12)
[2023-01-27] MEDS ORDERED: SYNTHROID 25 mcg TAB PO SCH (06:30)
[2023-01-27] MEDS ORDERED: VANCOMYCIN IV *PREMIX 1.25 G/250 ML BAG 1.25 G/250 ML PIGGYBACK IV ONE (06:30)
[2023-01-27] MEDS: SYNTHROID 125 mcg TAB PO SCH (06:33)
[2023-01-27] MEDS ORDERED: PHARMACY CONSULT - VANCOMYCIN XX SCH (07:00)
[2023-01-27] MEDS ORDERED: LIPITOR TAB 40 MG PO SCH (09:00)
[2023-01-27] MEDS: PULMICORT NEB TX 0.5 MG NEB SCH ×2 (09:10→21:05)
[2023-01-27] MEDS: LIPITOR TAB 80 MG PO SCH (09:49)
[2023-01-27] MEDS: VASOTEC TAB 5 MG PO SCH ×2 (09:49→21:52)
[2023-01-27] MEDS: LR 1,000 ML IV 1,000 ML IV SCH ×3 (09:49→21:53)
[2023-01-27] MEDS: HEPARIN SODIUM IN D5W 25,000 UNITS/500 ML BAG IV PRN ×2 (10:48→18:30)
[2023-01-27] MEDS: DILANTIN CAP 100 MG EXT REL PO SCH ×2 (11:01→21:51)
--- NOTE | 2023-01-27 13:37 | NOTE.SOAP ---
Soap Note Note for Day of Date of Exam: 01/27/23 Subjective Data Subjective Data: HD # 1 after return [facility] s/p resection and repair of right femoral artery ( x 2) . Doing well. Back on heparin drip and IV Vancomycin Objective Data Temperature: 98.0 F Pulse Rate: 83 Respiratory Rate: 19 Blood Pressure: 109/57 O2 Sat by Pulse Oximetry: 98 Objective Data: Right groin with wound vacuum in place and no drainage or bleeeding. Right foot warm and not painful. Assessment Assessment: S/p resection infected right common femoral pseudoaneurysm , with interposition graft, sartorius muscle flap and wound vacuum placement.
[2023-01-27] MEDS: VANCOMYCIN IV *PREMIX 1 G/200 ML BAG 1 G/200 ML PIGGYBACK IV SCH (21:52)
[2023-01-28] MEDS: DILAUDID INJ IVP PRN ×2 (00:27→21:54)
[2023-01-28] MEDS: PULMICORT NEB TX 0.5 MG NEB SCH ×2 (08:20→21:35)
[2023-01-28] MEDS ORDERED: NS 1,000 ML IV 1,000 ML IV ONE ×2 (08:56→16:41)
[2023-01-28] MEDS: VASOTEC TAB 5 MG PO SCH (08:57)
[2023-01-28] MEDS: LIPITOR TAB 80 MG PO SCH (09:12)
[2023-01-28] MEDS: DILANTIN CAP 100 MG EXT REL PO SCH ×2 (09:12→21:53)
[2023-01-28] MEDS: VANCOMYCIN IV *PREMIX 1 G/200 ML BAG 1 G/200 ML PIGGYBACK IV SCH ×2 (09:13→21:54)
[2023-01-28] MEDS: SYNTHROID 125 mcg TAB PO SCH (09:13)
[2023-01-28] MEDS ORDERED: HEPARIN SODIUM INJ 5000 UNITS IVP ONE (11:36)
[2023-01-28] MEDS: HEPARIN SODIUM IN D5W 25,000 UNITS/500 ML BAG IV PRN (11:53)
[2023-01-28] MEDS: LR 1,000 ML IV 1,000 ML IV SCH (14:27)
[2023-01-28] MEDS ORDERED: NS 1,000 ML IV 1,000 ML ONE (16:43)
[2023-01-28] MEDS ORDERED: PHARMACY COMMENT IV ONE (20:30)
[2023-01-28 20:58] LABS: CREATININE 0.72 mg/dL (0.70-1.30); VANCOMYCIN,TROUGH 12.7 ug/mL (15-20)
--- NOTE | 2023-01-28 23:34 | NOTE.SOAP ---
Soap Note Note for Day of Date of Exam: 01/28/23 Subjective Data Subjective Data: See previous notes. Wound rightn groin with wound vacuum in place. Some hypotension and his antihypertensives were discontinued . Objective Data Pulse Rate: 79 Respiratory Rate: 17 Blood Pressure: 96/49 O2 Sat by Pulse Oximetry: 99 Objective Data: Wound vacuum in place right groin Assessment Assessment: S/P repair of right femoral artery, muscle flap and wound vacuum in place . Plan Plan: D/C antihypertensives , plan split thickness skin graft to right groin next week.
[2023-01-29] MEDS ORDERED: HEPARIN SODIUM INJ 5000 UNITS IVP ONE ×2 (02:04→10:00)
[2023-01-29] MEDS ORDERED: HEPARIN SODIUM INJ 5000 UNITS ONE ×2 (02:14→10:00)
[2023-01-29] MEDS: SYNTHROID 125 mcg TAB PO SCH (05:33)
[2023-01-29] MEDS: DILANTIN CAP 100 MG EXT REL PO SCH ×2 (08:36→20:20)
[2023-01-29] MEDS: LR 1,000 ML IV 1,000 ML IV SCH ×2 (08:36→14:49)
[2023-01-29] MEDS: PULMICORT NEB TX 0.5 MG NEB SCH (09:27)
[2023-01-29] MEDS: LIPITOR TAB 80 MG PO SCH (10:00)
[2023-01-29] MEDS: VANCOMYCIN IV *PREMIX 1 G/200 ML BAG 1 G/200 ML PIGGYBACK IV SCH ×2 (10:00→20:20)
--- NOTE | 2023-01-29 17:42 | NOTE.SOAP ---
Soap Note Note for Day of Date of Exam: 01/29/23 Subjective Data Subjective Data: Right groin wound is stable . BP improved since we stopped his antihypertensives. Objective Data Temperature: 97.8 F Pulse Rate: 70 Respiratory Rate: 18 Blood Pressure: 104/54 O2 Sat by Pulse Oximetry: 98 Objective Data: Wound vacuum in place right groin Assessment Assessment: Right groin wound healing Plan Plan: Skin graft will be placed .
[2023-01-29] MEDS: HEPARIN SODIUM IN D5W 25,000 UNITS/500 ML BAG IV PRN (20:14)
[2023-01-29] MEDS: DILAUDID INJ IVP PRN (21:18)
[2023-01-30] MEDS: LR 1,000 ML IV 1,000 ML IV SCH ×2 (01:56→18:19)
[2023-01-30] MEDS: SYNTHROID 125 mcg TAB PO SCH (05:37)
[2023-01-30 06:00] LABS: BLOOD UREA NITROGEN 4 mg/dL (7-18); CALCIUM 8.4 mg/dL (8.5-10.1); CARBON DIOXIDE 29.1 mmol/L (21-32); CHLORIDE 101 mmol/L (98-107); GLUCOSE 102 mg/dL (65-99); POTASSIUM 3.8 mmol/L (3.5-5.1); SODIUM 135 mmol/L (136-145); eGFR NON BLACK RACES > 60 (>60)
[2023-01-30 06:01] LABS: BASOPHILS # (AUTO) 0.1 X10^3/uL (0.0-0.1); BASOPHILS % (AUTO) 0.9 % (0.2-1.0); EOSINOPHILS # (AUTO) 0.1 x10^3/uL (0.0-0.2); EOSINOPHILS % (AUTO) 0.7 % (0.9-2.9); HEMATOCRIT 22.3 % (42.0-54.0); HEMOGLOBIN 7.6 g/dL (13.5-18.0); LYMPHOCYTES # (AUTO) 2.8 X10^3/uL (1.3-2.9); LYMPHOCYTES % (AUTO) 33.4 % (21.0-51.0); MEAN CORPUSCULAR HEMOGLOBIN 30.4 pg (27.0-34.0); MEAN CORPUSCULAR HGB CONC 34.1 g/dL (33.0-35.0); MEAN CORPUSCULAR VOLUME 89.3 fL (80.0-100.0); MEAN PLATELET VOLUME 8.3 fL (7.4-11.0); MONOCYTES # (AUTO) 0.9 x10^3/uL (0.3-0.8); MONOCYTES % (AUTO) 10.3 % (0.0-13.0); NEUTROPHILS # (AUTO) 4.6 x10^3/uL (2.2-4.8); NEUTROPHILS % (AUTO) 54.7 % (42.0-75.0); PLATELET COUNT 350 X10^3/uL (150.0-450.0); RED CELL DISTRIBUTION WIDTH 17.7 % (11.6-16.5); WHITE BLOOD COUNT 8.4 X10^3/uL (3.6-10.0)
[2023-01-30] MEDS: LIPITOR TAB 80 MG PO SCH (08:57)
[2023-01-30] MEDS: DILANTIN CAP 100 MG EXT REL PO SCH ×2 (08:58→21:33)
[2023-01-30 09:33] LABS: CREATININE 0.7 mg/dL (0.70-1.30); VANCOMYCIN,TROUGH 12.1 ug/mL (15-20)
[2023-01-30] MEDS: VANCOMYCIN IV *PREMIX 1 G/200 ML BAG 1 G/200 ML PIGGYBACK IV SCH ×2 (10:00→21:33)
[2023-01-30] MEDS: HEPARIN SODIUM IN D5W 25,000 UNITS/500 ML BAG IV PRN (12:24)
[2023-01-30] MEDS ORDERED: HEPARIN SODIUM INJ 5000 UNITS IVP ONE (18:59)
[2023-01-30] MEDS: DILAUDID INJ IVP PRN (22:24)
--- NOTE | 2023-01-30 23:44 | NOTE.SOAP ---
Soap Note Note for Day of Date of Exam: 01/30/23 Subjective Data Subjective Data: Continues to do well after interposition graft placement common femoral artery area with muscle flap and wound vacuum. Little drainage from the wound vacuum. On Heparin drip and antibiotics. Objective Data Temperature: 98.0 F Pulse Rate: 71 Respiratory Rate: 17 Blood Pressure: 112/57 O2 Sat by Pulse Oximetry: 100 Objective Data: Right groin with wound vacuum in place. Right foot with biphasic doppler signals at the ankle . Assessment Assessment: As above Plan Plan: Continue IV antibiotics, IV Heparin . Plan STSG to right groin on 02/02/2023 and will mcontinue wound vacuum over this and plan discharge home .
[2023-01-31] MEDS: LR 1,000 ML IV 1,000 ML IV SCH ×4 (03:00→21:34)
[2023-01-31] MEDS: SYNTHROID 125 mcg TAB PO SCH (05:37)
[2023-01-31] MEDS: LIPITOR TAB 80 MG PO SCH (09:19)
[2023-01-31] MEDS: DILANTIN CAP 100 MG EXT REL PO SCH ×2 (09:19→21:37)
[2023-01-31] MEDS: VANCOMYCIN IV *PREMIX 1 G/200 ML BAG 1 G/200 ML PIGGYBACK IV SCH ×2 (09:19→21:38)
[2023-01-31] MEDS: DILAUDID INJ IVP PRN ×2 (09:20→23:40)
[2023-01-31] MEDS ORDERED: HEPARIN SODIUM INJ 5000 UNITS IVP ONE (13:32)
[2023-01-31] MEDS: HEPARIN SODIUM IN D5W 25,000 UNITS/500 ML BAG IV PRN (21:34)
--- NOTE | 2023-01-31 23:01 | NOTE.SOAP ---
Soap Note Note for Day of Date of Exam: 01/31/23 Subjective Data Subjective Data: Continues to do well with wound vacuum in the right groin. Wound vacuum changed today and muscle flap is intact an looks very good. Objective Data Temperature: 97.9 F Pulse Rate: 87 Respiratory Rate: 20 Blood Pressure: 95/46 O2 Sat by Pulse Oximetry: 97 Objective Data: as above .Hgb=7.6, BMP is WNL. Assessment Assessment: S/P INTERPOSITION DACRON GRAFT REPAIR OF RIGHT FEMORAL ARTERY WITH MUSCLE FLAP AMD WOUND VACUUM. Plan Plan: PLACE SPLIT THICKNESS SKIN GRAFT TO RIGHT GROIN WOUND ON MONDAY. HOPEFULLY DISCHARGE HOME MONDAY.
[2023-02-01] MEDS: LR 1,000 ML IV 1,000 ML IV SCH ×2 (05:33→18:29)
[2023-02-01] MEDS: SYNTHROID 125 mcg TAB PO SCH (05:37)
[2023-02-01] MEDS: LIPITOR TAB 80 MG PO SCH (09:22)
[2023-02-01] MEDS: DILANTIN CAP 100 MG EXT REL PO SCH ×2 (09:22→21:00)
[2023-02-01] MEDS: VANCOMYCIN IV *PREMIX 1 G/200 ML BAG 1 G/200 ML PIGGYBACK IV SCH ×2 (09:22→21:45)
[2023-02-01] MEDS: DILAUDID INJ IVP PRN ×2 (12:37→22:25)
[2023-02-01 21:08] LABS: CREATININE 0.83 mg/dL (0.70-1.30); VANCOMYCIN,TROUGH 12.8 ug/mL (15-20)
--- NOTE | 2023-02-01 23:37 | NOTE.SOAP ---
Soap Note Note for Day of Date of Exam: 02/01/23 Subjective Data Subjective Data: Right groin wound stable with wound vacuum. No bleeding . On heparin drip. Objective Data Temperature: 97.4 F Pulse Rate: 84 Respiratory Rate: 17 Blood Pressure: 87/43 O2 Sat by Pulse Oximetry: 100 Objective Data: Patient stable. Low BP but stable. Stopped all antihypertensives . Hgb=7.6, BMP is WNL, WBC=8.4. Assessment Assessment: Sepsis is cleared . Will stop antibiotics. Plan for split thickness skin graft right groin wound and continue wound vacuum. Will plan discharge on Monday02/03/2023.
[2023-02-02 05:03] LABS: BASOPHILS % (AUTO) 0.6 % (0.2-1.0); EOSINOPHILS % (AUTO) 0.6 % (0.9-2.9); HEMATOCRIT 24.8 % (42.0-54.0); HEMOGLOBIN 8.6 g/dL (13.5-18.0); LYMPHOCYTES # (AUTO) 2.7 X10^3/uL (1.3-2.9); LYMPHOCYTES % (AUTO) 35.7 % (21.0-51.0); MEAN CORPUSCULAR HEMOGLOBIN 31.1 pg (27.0-34.0); MEAN CORPUSCULAR HGB CONC 34.6 g/dL (33.0-35.0); MEAN CORPUSCULAR VOLUME 90.1 fL (80.0-100.0); MEAN PLATELET VOLUME 8.1 fL (7.4-11.0); MONOCYTES # (AUTO) 0.8 x10^3/uL (0.3-0.8); MONOCYTES % (AUTO) 9.9 % (0.0-13.0); NEUTROPHILS % (AUTO) 53.2 % (42.0-75.0); PLATELET COUNT 320 X10^3/uL (150.0-450.0); RED BLOOD COUNT 2.75 X10^6/uL (4.7-6.0); RED CELL DISTRIBUTION WIDTH 18.8 % (11.6-16.5); WHITE BLOOD COUNT 7.6 X10^3/uL (3.6-10.0)
[2023-02-02] MEDS: HEPARIN SODIUM IN D5W 25,000 UNITS/500 ML BAG IV PRN (09:48)
[2023-02-02] MEDS: DILAUDID INJ IVP PRN (09:58)
[2023-02-02] MEDS: VANCOMYCIN IV *PREMIX 1 G/200 ML BAG 1 G/200 ML PIGGYBACK IV SCH (10:03)
[2023-02-02] MEDS ORDERED: NS 1,000 ML IV 1,000 ML ONE (11:40)
[2023-02-02] MEDS ORDERED: PEPCID 20 MG VIAL ONE (11:46)
[2023-02-02] MEDS ORDERED: ZOFRAN INJ 4 MG VIAL ONE (11:46)
[2023-02-02] MEDS ORDERED: FENTANYL VIAL INJ 100 mcg ONE (11:47)
[2023-02-02] MEDS ORDERED: VERSED ONE (11:47)
[2023-02-02] MEDS ORDERED: DIPRIVAN VIAL 20 ML ONE (11:48)
[2023-02-02] MEDS ORDERED: BETADINE SOLN ONE (11:58)
[2023-02-02] MEDS ORDERED: MARCAINE/EPINEPHRINE ONE (12:09)
[2023-02-02] MEDS ORDERED: XYLOCAINE 2 % (PLAIN) ONE (12:23)
[2023-02-02] MEDS ORDERED: KETAMINE HCL ONE (12:23)
[2023-02-02] MEDS ORDERED: DECADRON INJ ONE ×2 (12:36)
[2023-02-02] MEDS ORDERED: NEO-SYNEPHRINE INJ ONE (12:37)
[2023-02-02] MEDS: LR 1,000 ML IV 1,000 ML IV SCH (12:48)
[2023-02-02] MEDS: SYNTHROID 125 mcg TAB PO SCH (12:48)
[2023-02-02] MEDS ORDERED: EPHEDRINE SULFATE INJ ONE (12:49)
[2023-02-02] MEDS: DILANTIN CAP 100 MG EXT REL PO SCH (12:49)
[2023-02-02] MEDS: LIPITOR TAB 80 MG PO SCH (12:49)
--- NOTE | 2023-02-02 13:16 | OR.IMMED ---
IMMEDIATE POST-OP NOTE Immediate Post-Op Note Pre-Op Diagnosis: right groin wound Post-Op Diagnosis: same, measures 12 x5x1.5 cm Procedure: split thickness skin graft right groin wound and place wound vacuum Description of Procedure: see operative summary Surgeon/Corporate Manager: Malathi Findings: see op note Estimated Blood Loss: minimal Complications: none Progress Notes: To ICU, stop IV heparin and Vancomcin, Begin Eliquis 5 mg po BID . Probably D/C home tomorrow with wound vacuum in place.
[2023-02-02] MEDS ORDERED: DILAUDID INJ IVP PRN (13:22)
[2023-02-02] MEDS ORDERED: BARHEMSYS INJ IVP PRN (13:22)
[2023-02-02] MEDS ORDERED: BENADRYL INJ 50 MG VIAL IVP PRN (13:22)
[2023-02-02] MEDS: PERCOCET TAB 5/325 MG PO PRN (14:37)
[2023-02-02 15:41] VITALS: O2SAT 100
[2023-02-02] MEDS: ELIQUIS PO SCH (21:23)
[2023-02-02] MEDS: KEPPRA TAB 500 MG PO SCH (21:23)
[2023-02-03 05:08] LABS: BASOPHILS % (AUTO) 0.6 % (0.2-1.0); EOSINOPHILS % (AUTO) 0.3 % (0.9-2.9); HEMATOCRIT 23.9 % (42.0-54.0); HEMOGLOBIN 8.2 g/dL (13.5-18.0); LYMPHOCYTES # (AUTO) 2.6 X10^3/uL (1.3-2.9); LYMPHOCYTES % (AUTO) 31.6 % (21.0-51.0); MEAN CORPUSCULAR HEMOGLOBIN 31.3 pg (27.0-34.0); MEAN CORPUSCULAR HGB CONC 34.1 g/dL (33.0-35.0); MEAN CORPUSCULAR VOLUME 91.6 fL (80.0-100.0); MEAN PLATELET VOLUME 7.9 fL (7.4-11.0); MONOCYTES # (AUTO) 0.8 x10^3/uL (0.3-0.8); MONOCYTES % (AUTO) 9.4 % (0.0-13.0); NEUTROPHILS # (AUTO) 4.8 x10^3/uL (2.2-4.8); NEUTROPHILS % (AUTO) 58.1 % (42.0-75.0); PLATELET COUNT 237 X10^3/uL (150.0-450.0); RED BLOOD COUNT 2.61 X10^6/uL (4.7-6.0); RED CELL DISTRIBUTION WIDTH 19.1 % (11.6-16.5); WHITE BLOOD COUNT 8.3 X10^3/uL (3.6-10.0)
[2023-02-03] MEDS: PERCOCET TAB 5/325 MG PO PRN ×2 (06:30→12:20)
[2023-02-03] MEDS: SYNTHROID 125 mcg TAB PO SCH (06:30)
[2023-02-03] MEDS: KEPPRA TAB 500 MG PO SCH (08:33)
[2023-02-03] MEDS: ELIQUIS PO SCH (08:33)
[2023-02-03] MEDS: LIPITOR TAB 80 MG PO SCH (08:33)
[2023-02-03 08:38] VITALS: TEMP 98.1
[2023-02-03 09:30] LABS: CREATININE 0.76 mg/dL (0.70-1.30); VANCOMYCIN,TROUGH 6.8 ug/mL (15-20)
--- NOTE | 2023-02-03 11:37 | W.DIS.FURT ---
Summary of Discharge Discharge Summary of Date Date of Exam: 02/03/23 Admission Date Date of Admission: 01/26/23 Admission Diagnosis Hospital Course: 62 year old male with multiple vascular interventions including left iliac stenting , right lower extremity atherectomy and drug coated balloon angioplasty and most recently had resolution of 75% stenosis of the distal aorta by placing bilateral long iliac stents. At the time of the aortic reconstruction this was done through bilateral groin incisions. Patient presented with pulsatile mass in the right groin and subsequent positive blood cultures. The patient was transferred to [facility] in [place] where he underwent resection of the femoral artery and placement of a Du Pont-Galdino interposition graft with sartorius muscle flap. This occluded requiring a second operation with placement of a Dacron interposition graft in the right groin with sartorius muscle flap. Patient has wound vacuum in place right roin in place and was transferred back to my [facility] in [place]. He has done very well. No signs of sepsis. No evidence of bleeding. He has been maintained on IV antibiotics and IV heparin. He was taken to the operative suite yesterday underwent split thickness skin graft application over the open wound of the right groin covering the sartorius muscle and placing a wound vacuum over this He will be discharged today on his usual home medications plus clindamycin 150 mg TID and Eliquis 5 mg BID . He has been on Dilantin but this cannot be taken safely with Eliquis therefore will be changed to Keppra to treat his history of seizures. He will follow up with me in 1 week. Home health will maintain the wound vacuum. I will assess the wound and the skin graft in f/u. His hgb has been low but stable and is 8.2 grams . He had his antihypertensives discontinued as his BP has been under good control. Vital Signs: Vital Signs (72 hours) 01/31/23 23:00 02/01/23 23:33 01/31/23 12:00 Temperature 97.9 F 97.4 F L Pulse Rate 87 84 Respiratory Rate 20 17 Blood Pressure 95/46 87/43 99/54 O2 Sat by Pulse Oximetry 97 100 Oxygen Delivery Method 01/31/23 12:00 01/31/23 13:00 01/31/23 13:00 Temperature Pulse Rate 69 77 Respiratory Rate 14 12 Blood Pressure 85/48 O2 Sat by Pulse Oximetry Oxygen Delivery Method 01/31/23 14:00 01/31/23 14:00 01/31/23 15:00 Temperature Pulse Rate 75 Respiratory Rate 18 Blood Pressure 90/48 92/53 O2 Sat by Pulse Oximetry 100 Oxygen Delivery Method 01/31/23 15:00 01/31/23 16:00 01/31/23 16:00 Temperature Pulse Rate 79 77 Respiratory Rate 16 16 Blood Pressure 94/47 O2 Sat by Pulse Oximetry 100 100 Oxygen Delivery Method 01/31/23 17:00 01/31/23 17:00 01/31/23 18:00 Temperature Pulse Rate 76 Respiratory Rate 20 Blood Pressure 95/51 95/46 O2 Sat by Pulse Oximetry 100 Oxygen Delivery Method 01/31/23 18:00 01/31/23 23:40 01/31/23 19:00 Temperature Pulse Rate 87 Respiratory Rate 20 20 Blood Pressure O2 Sat by Pulse Oximetry 97 Oxygen Delivery Method Room Air 01/31/23 19:00 01/31/23 20:00 01/31/23 21:00 Temperature 98.6 F Pulse Rate 77 83 78 Respiratory Rate 17 12 17 Blood Pressure 97/53 87/50 87/52 O2 Sat by Pulse Oximetry 100 100 98 Oxygen Delivery Method 01/31/23 22:00 01/31/23 23:00 02/01/23 00:00 Temperature 98.2 F Pulse Rate 70 70 72 Respiratory Rate 22 22 20 Blood Pressure 100/52 100/52 102/50 O2 Sat by Pulse Oximetry 100 100 99 Oxygen Delivery Method 02/01/23 01:00 02/01/23 02:00 02/01/23 03:00 Temperature Pulse Rate 72 72 72 Respiratory Rate 16 16 16 Blood Pressure 100/54 100/54 100/54 O2 Sat by Pulse Oximetry 99 99 99 Oxygen Delivery Method 02/01/23 04:00 02/01/23 00:10 02/01/23 05:00 Temperature 98.0 F Pulse Rate 69 68 Respiratory Rate 20 20 16 Blood Pressure 98/50 95/51 O2 Sat by Pulse Oximetry 100 100 Oxygen Delivery Method 02/01/23 06:00 02/01/23 07:00 02/01/23 07:00 Temperature 98.0 F Pulse Rate 69 92 H Respiratory Rate 22 16 Blood Pressure 91/58 101/54 O2 Sat by Pulse Oximetry 100 97 Oxygen Delivery Method Room Air Room Air 02/01/23 08:00 02/01/23 09:00 02/01/23 10:00 Temperature Pulse Rate 88 85 80 Respiratory Rate 18 22 18 Blood Pressure 91/54 112/56 91/47 O2 Sat by Pulse Oximetry 100 99 100 Oxygen Delivery Method Room Air Room Air Room Air 02/01/23 11:00 02/01/23 12:00 02/01/23 12:37 Temperature 98.2 F Pulse Rate 76 Respiratory Rate 21 22 Blood Pressure 112/54 O2 Sat by Pulse Oximetry 99 Oxygen Delivery Method Room Air 02/01/23 13:00 02/01/23 14:00 02/01/23 15:00 Temperature Pulse Rate 90 77 87 Respiratory Rate 17 15 22 Blood Pressure 103/82 98/47 83/44 O2 Sat by Pulse Oximetry 100 100 100 Oxygen Delivery Method Room Air Room Air Room Air 02/01/23 16:00 02/01/23 17:00 02/01/23 18:00 Temperature Pulse Rate 75 92 H 77 Respiratory Rate 18 22 20 Blood Pressure 105/54 99/53 96/51 O2 Sat by Pulse Oximetry 99 99 96 Oxygen Delivery Method Room Air Room Air Room Air 02/01/23 19:00 02/01/23 20:00 02/01/23 21:00 Temperature 97.9 F Pulse Rate 81 84 77 Respiratory Rate 18 17 19 Blood Pressure 94/50 87/43 88/51 O2 Sat by Pulse Oximetry 100 100 100 Oxygen Delivery Method Room Air Room Air Room Air 02/01/23 19:00 02/01/23 22:25 02/01/23 22:00 Temperature Pulse Rate 81 Respiratory Rate 20 26 H Blood Pressure 92/49 O2 Sat by Pulse Oximetry 100 Oxygen Delivery Method Room Air Room Air 02/01/23 23:00 02/02/23 00:00 02/01/23 22:55 Temperature 98.2 F Pulse Rate 77 68 Respiratory Rate 27 H 18 18 Blood Pressure 84/45 109/51 O2 Sat by Pulse Oximetry 100 100 Oxygen Delivery Method Room Air Room Air 02/02/23 01:00 02/02/23 02:00 02/02/23 03:00 Temperature Pulse Rate 71 74 72 Respiratory Rate 19 23 20 Blood Pressure 111/55 87/46 105/53 O2 Sat by Pulse Oximetry 100 99 99 Oxygen Delivery Method Room Air Room Air Room Air 02/02/23 04:00 02/02/23 05:00 02/02/23 06:00 Temperature 98.6 F Pulse Rate 77 68 72 Respiratory Rate 17 17 26 H Blood Pressure 105/54 99/48 105/51 O2 Sat by Pulse Oximetry 100 99 100 Oxygen Delivery Method Room Air Room Air Room Air 02/02/23 09:58 02/02/23 11:47 02/02/23 07:00 Temperature 98.6 F Pulse Rate 72 Respiratory Rate 12 16 Blood Pressure 108/59 O2 Sat by Pulse Oximetry 97 Oxygen Delivery Method Room Air Room Air 02/02/23 07:00 02/02/23 08:00 02/02/23 09:00 Temperature 98.1 F Pulse Rate 71 79 72 Respiratory Rate 18 20 15 Blood Pressure 109/55 106/52 113/53 O2 Sat by Pulse Oximetry 99 100 100 Oxygen Delivery Method Room Air Room Air Room Air 02/02/23 10:00 02/02/23 11:00 02/02/23 10:28 Temperature 98.2 F Pulse Rate 79 77 Respiratory Rate 13 12 13 Blood Pressure 104/51 102/54 O2 Sat by Pulse Oximetry 100 98 Oxygen Delivery Method Room Air Room Air 02/02/23 13:10 02/02/23 13:15 02/02/23 13:35 Temperature 97.3 F L 97.3 F L 97.3 F L Pulse Rate 82 73 84 Respiratory Rate 14 14 14 Blood Pressure 122/57 112/55 96/54 O2 Sat by Pulse Oximetry 100 98 99 Oxygen Delivery Method Aerosol Face Tent Aerosol Face Tent Room Air 02/02/23 13:41 02/02/23 13:20 02/02/23 13:25 Temperature 97.3 F L 97.3 F L 97.3 F L Pulse Rate 81 76 95 H Respiratory Rate 14 14 14 Blood Pressure 101/56 101/55 103/56 O2 Sat by Pulse Oximetry 96 98 99 Oxygen Delivery Method Room Air Aerosol Face Tent Aerosol Face Tent 02/02/23 13:30 02/02/23 14:37 02/02/23 13:56 Temperature 97.3 F L 97.5 F L Pulse Rate 87 87 Respiratory Rate 14 25 H 12 Blood Pressure 95/50 98/50 O2 Sat by Pulse Oximetry 99 92 L Oxygen Delivery Method Room Air Room Air 02/02/23 14:15 02/02/23 14:30 02/02/23 14:45 Temperature 97.8 F Pulse Rate 93 H 98 H 83 Respiratory Rate 13 18 18 Blood Pressure 87/53 125/62 96/50 O2 Sat by Pulse Oximetry 96 94 L 98 Oxygen Delivery Method Room Air Room Air Room Air 02/02/23 15:00 02/02/23 16:00 02/02/23 17:00 Temperature 97.8 F Pulse Rate 100 H 96 H 95 H Respiratory Rate 16 12 14 Blood Pressure 96/55 102/66 100/55 O2 Sat by Pulse Oximetry 100 100 100 Oxygen Delivery Method Room Air Room Air Room Air 02/02/23 15:37 02/02/23 18:00 02/02/23 19:00 Temperature 98.0 F Pulse Rate 92 H 95 H Respiratory Rate 12 19 21 Blood Pressure 92/51 87/50 O2 Sat by Pulse Oximetry 100 100 Oxygen Delivery Method Room Air Room Air 02/02/23 20:00 02/02/23 21:00 02/02/23 19:00 Temperature Pulse Rate 91 H 85 Respiratory Rate 24 17 Blood Pressure 87/50 84/48 O2 Sat by Pulse Oximetry 100 100 Oxygen Delivery Method Room Air Room Air Room Air 02/02/23 22:00 02/02/23 23:00 02/03/23 00:00 Temperature 98.3 F 98.3 F Pulse Rate 64 86 87 Respiratory Rate 24 21 24 Blood Pressure 84/49 94/53 98/47 O2 Sat by Pulse Oximetry 100 100 100 Oxygen Delivery Method Nasal Cannula Room Air Room Air 02/03/23 01:00 02/03/23 02:00 02/03/23 03:00 Temperature 98.3 F Pulse Rate 91 H 76 73 Respiratory Rate 23 25 H 18 Blood Pressure 86/51 84/47 96/50 O2 Sat by Pulse Oximetry 100 100 100 Oxygen Delivery Method Room Air Room Air Room Air 02/03/23 04:00 02/03/23 05:00 02/03/23 06:00 Temperature 98.0 F Pulse Rate 78 72 72 Respiratory Rate 25 H 19 25 H Blood Pressure 93/52 99/50 99/51 O2 Sat by Pulse Oximetry 100 100 100 Oxygen Delivery Method Room Air Room Air 02/03/23 06:30 02/03/23 07:00 02/02/23 18:30 Temperature Pulse Rate 93 H Respiratory Rate 16 11 L Blood Pressure O2 Sat by Pulse Oximetry 100 Oxygen Delivery Method Room Air 02/02/23 19:00 02/02/23 19:00 02/02/23 19:29 Temperature Pulse Rate 96 H Respiratory Rate 15 Blood Pressure 89/61 80/46 O2 Sat by Pulse Oximetry 100 Oxygen Delivery Method 02/02/23 19:29 02/02/23 19:30 02/02/23 19:30 Temperature Pulse Rate 92 H 92 H Respiratory Rate 17 22 Blood Pressure 87/47 O2 Sat by Pulse Oximetry 100 100 Oxygen Delivery Method 02/02/23 20:00 02/02/23 20:00 02/02/23 21:00 Temperature Pulse Rate 91 H Respiratory Rate 24 Blood Pressure 87/50 84/48 O2 Sat by Pulse Oximetry 100 Oxygen Delivery Method 02/02/23 21:00 02/02/23 21:30 02/02/23 21:30 Temperature Pulse Rate 87 90 Respiratory Rate 24 24 Blood Pressure 85/51 O2 Sat by Pulse Oximetry 100 100 Oxygen Delivery Method 02/02/23 22:00 02/02/23 22:00 02/02/23 22:31 Temperature Pulse Rate 82 Respiratory Rate 26 H Blood Pressure 84/49 89/44 O2 Sat by Pulse Oximetry 100 Oxygen Delivery Method 02/02/23 22:31 02/02/23 23:00 02/02/23 23:00 Temperature Pulse Rate 90 94 H Respiratory Rate 23 21 Blood Pressure 88/49 O2 Sat by Pulse Oximetry 100 100 Oxygen Delivery Method 02/02/23 23:30 02/02/23 23:30 02/02/23 23:34 Temperature Pulse Rate 85 86 Respiratory Rate 21 19 Blood Pressure 76/49 O2 Sat by Pulse Oximetry 100 100 Oxygen Delivery Method 02/02/23 23:34 02/03/23 00:00 02/03/23 00:00 Temperature Pulse Rate 84 Respiratory Rate 22 Blood Pressure 94/53 98/47 O2 Sat by Pulse Oximetry 100 Oxygen Delivery Method 02/03/23 00:30 02/03/23 00:30 02/03/23 00:35 Temperature Pulse Rate 87 Respiratory Rate 23 Blood Pressure 72/37 80/39 O2 Sat by Pulse Oximetry 100 Oxygen Delivery Method 02/03/23 00:35 02/03/23 00:58 02/03/23 00:58 Temperature Pulse Rate 84 90 Respiratory Rate 20 26 H Blood Pressure 87/50 O2 Sat by Pulse Oximetry 100 100 Oxygen Delivery Method 02/03/23 01:00 02/03/23 01:00 02/03/23 01:09 Temperature Pulse Rate 89 Respiratory Rate 21 Blood Pressure 82/44 81/44 O2 Sat by Pulse Oximetry 100 Oxygen Delivery Method 02/03/23 01:09 02/03/23 01:10 02/03/23 01:10 Temperature Pulse Rate 85 80 Respiratory Rate 18 20 Blood Pressure 86/51 O2 Sat by Pulse Oximetry 100 100 Oxygen Delivery Method 02/03/23 02:00 02/03/23 02:02 02/03/23 02:02 Temperature Pulse Rate 78 75 Respiratory Rate 28 H 19 Blood Pressure 84/47 O2 Sat by Pulse Oximetry 100 100 Oxygen Delivery Method 02/03/23 03:00 02/03/23 03:00 02/03/23 04:00 Temperature Pulse Rate 69 Respiratory Rate 16 Blood Pressure 96/50 93/52 O2 Sat by Pulse Oximetry 100 Oxygen Delivery Method 02/03/23 04:00 02/03/23 05:00 02/03/23 05:00 Temperature Pulse Rate 73 77 Respiratory Rate 14 20 Blood Pressure 99/50 O2 Sat by Pulse Oximetry 100 100 Oxygen Delivery Method 02/03/23 06:00 02/03/23 06:00 02/03/23 07:00 Temperature Pulse Rate 73 Respiratory Rate 17 Blood Pressure 99/51 113/62 O2 Sat by Pulse Oximetry 99 Oxygen Delivery Method 02/03/23 07:00 02/03/23 08:00 02/03/23 08:01 Temperature Pulse Rate 78 86 88 Respiratory Rate 19 22 21 Blood Pressure O2 Sat by Pulse Oximetry 100 100 100 Oxygen Delivery Method 02/03/23 08:01 02/03/23 09:00 02/03/23 10:00 Temperature 98.1 F Pulse Rate 87 83 Respiratory Rate 20 23 Blood Pressure 102/52 O2 Sat by Pulse Oximetry 100 100 Oxygen Delivery Method 02/03/23 10:01 02/03/23 10:01 02/03/23 07:30 Temperature Pulse Rate 84 Respiratory Rate 20 16 Blood Pressure 98/52 O2 Sat by Pulse Oximetry 100 Oxygen Delivery Method Labs: Laboratory Last Values WBC 8.3 X10^3/uL (3.6-10.0) 02/03/23 04:33 RBC 2.61 X10^6/uL (4.7-6.0) L 02/03/23 04:33 Hgb 8.2 g/dL (13.5-18.0) L 02/03/23 04:33 Hct 23.9 % (42.0-54.0) L 02/03/23 04:33 MCV 91.6 fL (80.0-100.0) 02/03/23 04:33 MCH 31.3 pg (27.0-34.0) 02/03/23 04:33 MCHC 34.1 g/dL (33.0-35.0) 02/03/23 04:33 RDW 19.1 % (11.6-16.5) H 02/03/23 04:33 Plt Count 237 X10^3/uL (150.0-450.0) 02/03/23 04:33 MPV 7.9 fL (7.4-11.0) 02/03/23 04:33 Neut % (Auto) 58.1 % (42.0-75.0) 02/03/23 04:33 Lymph % (Auto) 31.6 % (21.0-51.0) 02/03/23 04:33 [place] % (Auto) 9.4 % (0.0-13.0) 02/03/23 04:33 Eos % (Auto) 0.3 % (0.9-2.9) L 02/03/23 04:33 Baso % (Auto) 0.6 % (0.2-1.0) 02/03/23 04:33 Neut # (Auto) 4.8 x10^3/uL (2.2-4.8) 02/03/23 04:33 Lymph # (Auto) 2.6 X10^3/uL (1.3-2.9) 02/03/23 04:33 [place] # (Auto) 0.8 x10^3/uL (0.3-0.8) 02/03/23 04:33 Eos # (Auto) 0.0 x10^3/uL (0.0-0.2) 02/03/23 04:33 Baso # (Auto) 0.0 X10^3/uL (0.0-0.1) 02/03/23 04:33 Absolute Nucleated RBC 0.0 /100WBC 02/03/23 04:33 PT 13.8 SECONDS (11.8-14.3) 01/26/23 18:35 INR Target Range - 01/26/23 18:35 INR 1.08 (0.8-1.3) 01/26/23 18:35 APTT 66.3 SECONDS (22.9-36.5) H 02/02/23 10:54 PTT Comment - 02/02/23 10:54 Sodium 135 mmol/L (136-145) L 01/30/23 05:45 Corrected Sodium TNP 01/30/23 05:45 Potassium 3.8 mmol/L (3.5-5.1) 01/30/23 05:45 Chloride 101 mmol/L (98-107) 01/30/23 05:45 Carbon Dioxide 29.1 mmol/L (21-32) 01/30/23 05:45 BUN 4 mg/dL (7-18) L 01/30/23 05:45 Creatinine 0.76 mg/dL (0.70-1.30) 02/03/23 08:32 Est GFR (MDRD) Af Amer > 60 (>60) 01/30/23 05:45 Est GFR (MDRD) Non-Af > 60 (>60) 01/30/23 05:45 Glucose 102 mg/dL (65-99) H 01/30/23 05:45 Calcium 8.4 mg/dL (8.5-10.1) L 01/30/23 05:45 Vancomycin Trough 6.8 ug/mL (15-20) L 02/03/23 08:32 Reason For Visit: POST OP THROMBECTOMY Discharge Date Discharge Date: 02/03/23 Discharge Diagnosis All Active Problems (Updated 01/20/23 @ 18:08 by Ray Servin) Positive blood cultures (Acute) Aneurysm of right femoral artery (Acute) Abscess of right groin (Acute) Right groin pain (Chronic) Encounter for wound care (Acute) History of recent blood transfusion (Acute) Anemia (Acute) Thyroid disease (Chronic) Pulmonary disease (Chronic) GERD (gastroesophageal reflux disease) (Chronic) DJD (degenerative joint disease) (Chronic) Hematoma of groin (Acute) Acute hyponatremia (Acute) Hematoma following procedure (Acute) Chronic obstructive bronchitis (Chronic) Hypertension (Chronic) Plan of Treatment: Continue with present treatment and follow up plan. Pt is to keep follow up appointment as instructed and take medications as ordered. Discharge Medications Discharge Medications: chocolate flavor Adverse Reaction (Verified 12/22/22 09:45) RASH tomato Adverse Reaction (Verified 12/22/22 09:45) RASH CONTINUE taking the following medications atorvastatin 80 mg tablet 1 tab PO HS 01/27/23 [History] levothyroxine 125 mcg tablet 2 tab PO DAILY 01/27/23 [History] oxycodone-acetaminophen 5 mg-325 mg tablet 1 tab PO BID PRN Pain 01/27/23 [History] phenytoin sodium extended 100 mg capsule 2 tab PO BID 01/27/23 [History] rivaroxaban 10 mg tablet (Xarelto) 1 tab PO DAILY 01/27/23 [History] tramadol 50 mg tablet 1 tab PO BID PRN 01/27/23 [History] Discharge Disposition Assessment: Doing well. At home with wound vacuum. See hospita course dictation Discharge Plan Discharge Plan Hospital Course: 62 year old male with multiple vascular interventions including left iliac stenting , right lower extremity atherectomy and drug coated balloon angioplasty and most recently had resolution of 75% stenosis of the distal aorta by placing bilateral long iliac stents. At the time of the aortic reconstruction this was done through bilateral groin incisions. Patient presented with pulsatile mass in the right groin and subsequent positive blood cultures. The patient was transferred to [facility] in [place] where he underwent resection of the femoral artery and placement of a Du Pont-Galdino interposition graft with sartorius muscle flap. This occluded requiring a second operation with placement of a Dacron interposition graft in the right groin with sartorius muscle flap. Patient has wound vacuum in place right roin in place and was transferred back to my [facility] in [place]. He has done very well. No signs of sepsis. No evidence of bleeding. He has been maintained on IV antibiotics and IV heparin. He was taken to the operative suite yesterday underwent split thickness skin graft application over the open wound of the right groin covering the sartorius muscle and placing a wound vacuum over this He will be discharged today on his usual home medications plus clindamycin 150 mg TID and Eliquis 5 mg BID . He has been on Dilantin but this cannot be taken safely with Eliquis therefore will be changed to Keppra to treat his history of seizures. He will follow up with me in 1 week. Home health will maintain the wound vacuum. I will assess the wound and the skin graft in f/u. His hgb has been low but stable and is 8.2 grams . He had his antihypertensives discontinued as his BP has been under good control. Patient Disposition: HOME HEALTH SERVICE Condition: Stable Health Concerns: Post Hospitalization: new medications and changes needed to prevent readmission or further decline. Pt educated and given instructions on all concerns. Care Plan Goals: Problem: Infection Goal: Temperature within normal limits. Resolved infection. Instructions: Follow provided instructions. Follow up with primary physician as directed. Contact primary care physician or report to the closest Emergency Room if condition worsens. Plan of Treatment: Continue with present treatment and follow up plan. Pt is to keep follow up appointment as instructed and take medications as ordered. Assessment: Doing well. At home with wound vacuum. See hospita course dictation Prescriptions: New Eliquis 5 mg tablet 5 mg PO BID Qty: 60 4RF levetiracetam [Keppra] 500 mg tablet 500 mg PO BID Qty: 60 4RF oxycodone-acetaminophen [Percocet] 5-325 mg tablet 1 tab PO Q6H MDD 4 PRNQty: 30 0RF Continued atorvastatin 80 mg tablet 1 tab PO HS tramadol 50 mg tablet 1 tab PO BID PRN oxycodone-acetaminophen 5-325 mg tablet 1 tab PO BID PRN (Reason: Pain) levothyroxine 125 mcg tablet 2 tab PO DAILY Discontinued phenytoin sodium extended 100 mg capsule 2 tab PO BID Xarelto 10 mg tablet 1 tab PO DAILY Follow ups/Referrals Follow ups/Referrals: FRENCH SEGURA [STAFF PHYSICIAN] - MAURICIO LAMAR [Primary Care Provider] - 02/10/23 9:30 am Ray Servin [STAFF PHYSICIAN] - 02/08/23 1:00 pm Instructions Instructions: Fall Prevention in the Home, Adult, [id number], Negative Pressure Wound Therapy Home Guide, Wound Infection, [id number], Skin Grafting, Adult, Pseudoaneurysm, Skin Grafting, Adult, Care After, Bacteremia, Adult Activity Restrictions/Additional Instructions: Wound vacuum to be left in place until Dr. Servin changes it. Home health only to monitor canisters.
[2023-02-03 12:06] VITALS: BP 114/55; PULSE 88
--- NOTE | 2023-02-06 23:40 | DR.OPNOTE ---
OP NOTE Pre-Op Diagnosis: open wound right groin with muscle flap Post-Op Diagnosis: same Procedure Date Date Of Procedure: 02/02/23 Procedure: PROCEDURE : Split thickness skin graft to the right groin wound NARRATIVE : The patient was taken to the operative suite and placed in the supine position. The wound to the right groin was prepped with Betadine. General endotracheal anesthesia induced . This wound measured 12 by 5 by 1.5 CM. The right thigh has also been prepped and draped. 4 cm wide plate was selected for the dermatome . The dermatome was set to 08/1000 of an inch. Mineral oil applied to the right thigh and the dermatome used to remove a skin graft 8 cm long and 4 cm wide. The skin graft placed on a meshing plate and meshed to 1 and 1/2 x and applied over the wound. Vaseline gauze placed over the skin graft and and wound vacuum placed over this and placed to suction. Yoder site covered with Telfa soaked in 0.5% Marcaine , then wrapped with Kerlix and 6 inch Gato wrap. Extubated and taken to the PACU in good condition. Type of Anesthesia: General Anesthetic w/ETT Findings: 12x5x1.5 cm wound right groin with sartorius muscle flap covering Dacron femoral interposition graft. Type of Fluids Used:: Lactated Ringers EBL: minimal Complications:: none Needle/Sponge Count:: correct Disposition/Condition: Pt. tolerated procedure without difficulty. Extubated in the OR and taken to PACU in stable condition.
== END 2023-02-03 13:00 | disposition home health service (06) | DRG 264 ==
LOC: ICU → OBSVTOIN 17:51
PROVIDERS: ADMIT Surgery; ATTEND Surgery

== ENCOUNTER 2023-08-02 16:08 | Inpatient (IN) ==
[2023-08-02] MEDS ORDERED: NITROSTAT SL PRN (16:58)
[2023-08-02] MEDS ORDERED: HEPARIN SODIUM IN D5W 25,000 UNITS/500 ML BAG IV PRN (16:59)
[2023-08-02] MEDS: LR 1,000 ML IV 1,000 ML IV SCH (18:17)
[2023-08-02] MEDS: PROVENTIL NEB TX 0.083% 2.5MG/ 3ML NEB SCH (18:35)
[2023-08-02 18:42] LABS: BASOPHILS # (AUTO) 0.1 X10^3/uL (0.0-0.1); BASOPHILS % (AUTO) 0.7 % (0.2-1.0); EOSINOPHILS % (AUTO) 0.5 % (0.9-2.9); HEMATOCRIT 40.4 % (42.0-54.0); HEMOGLOBIN 13.6 g/dL (13.5-18.0); LYMPHOCYTES # (AUTO) 3.5 X10^3/uL (1.3-2.9); MEAN CORPUSCULAR HEMOGLOBIN 31.2 pg (27.0-34.0); MEAN CORPUSCULAR HGB CONC 33.6 g/dL (33.0-35.0); MEAN CORPUSCULAR VOLUME 92.6 fL (80.0-100.0); MONOCYTES # (AUTO) 0.8 x10^3/uL (0.3-0.8); MONOCYTES % (AUTO) 10.2 % (0.0-13.0); NEUTROPHILS # (AUTO) 3.7 x10^3/uL (2.2-4.8); NEUTROPHILS % (AUTO) 45.6 % (42.0-75.0); PLATELET COUNT 148 X10^3/uL (150.0-450.0); RED BLOOD COUNT 4.37 X10^6/uL (4.7-6.0); RED CELL DISTRIBUTION WIDTH 16.8 % (11.6-16.5); WHITE BLOOD COUNT 8.2 X10^3/uL (3.6-10.0)
[2023-08-02 18:54] LABS: INR 1.04 (0.8-1.3)
[2023-08-02 18:59] LABS: ALANINE AMINOTRANSFERASE 30 Units/L (12-78); ALBUMIN 3.6 g/dL (3.4-5.0); ALKALINE PHOSPHATASE 85 Units/L (46-116); ASPARTATE AMINO TRANSFERASE 21 Units/L (15-37); BLOOD UREA NITROGEN 10 mg/dL (7-18); CALCIUM 8.2 mg/dL (8.5-10.1); CARBON DIOXIDE 27.3 mmol/L (21-32); CHLORIDE 101 mmol/L (98-107); CREATININE 0.87 mg/dL (0.70-1.30); GLUCOSE 85 mg/dL (65-99); POTASSIUM 3.8 mmol/L (3.5-5.1); SODIUM 135 mmol/L (136-145); TOTAL PROTEIN 7.1 g/dL (6.4-8.2); eGFR NON BLACK RACES > 60 (>60)
[2023-08-02 19:01] VITALS: BMI 17.6
[2023-08-02] MEDS ORDERED: OMNIPAQUE 350 mg/mL 50 mL BTL 50 ML ONE (19:23)
[2023-08-02] MEDS ORDERED: NS 100 ML IV 100 ML ONE (19:23)
[2023-08-02] MEDS ORDERED: OMNIPAQUE 350 mg/mL 100 mL BTL 100 ML ONE (19:23)
[2023-08-02] MEDS ORDERED: HEPARIN SODIUM INJ 5000 UNITS IVP ONE ×2 (20:00)
[2023-08-02] MEDS: VASOTEC TAB 5 MG PO SCH (20:54)
[2023-08-02] MEDS: DILANTIN CAP 100 MG EXT REL PO SCH (20:54)
[2023-08-02] MEDS ORDERED: REFLEX: PROVENTIL NEB & PulmiCORT NEB~ NEB SCH (21:00)
--- NOTE | 2023-08-02 21:32 | CT ---
EXAM:CTA AORTA WITH RUNOFFHISTORY:Limb-threatening ischemia in the left legCOMPARISON:January 19, 2023TECHNIQUE:Axial CT images of the abdomen, pelvis and lower extremities were obtained prior to and after the administration of 150 mL Omnipaque IV contrast during the arterial phase. Images were reformatted with a 3D angiographic technique for further evaluation.Radiation dose: 801.46 mGy-cm total DLPFINDINGS:Aorta: Atherosclerotic changes with an infrarenal aorto bi iliac stent graft in place. No aneurysm. No clinically significant stenosis or occlusion.Mesenteric arteries/Celiac trunk: Occlusion of the TAMAR; as seen on the previous exam. No clinically significant stenosis, occlusion or aneurysm identified in the celiac trunk or SMA arterial distribution.Renal arteries: No clinically significant stenosis, occlusion or aneurysm.Right iliac arteries: Stent graft in place. Atherosclerotic changes. No clinically significant stenosis or occlusion.Left iliac arteries: Stent graft in place. 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 Small amount of reconstitution of flow in the left external iliac artery.Right femoral arteries/popliteal artery: Surgical clips adjacent to the common femoral artery. No clinically significant stenosis, occlusion or aneurysm. Distal superficial femoral artery stent in place.Left femoral arteries/popliteal artery: Surgical clips in the left inguinal region by the [employer]. Present but diminished flow in the common femoral, superficial femoral and profunda femoral arteries.Right infrapopliteal arteries: Atherosclerotic changes. No occlusion or aneurysm. 3 vessel runoff.Left infrapopliteal arteries: Atherosclerotic changes. No occlusion or aneurysm. 3 vessel runoff.Lung bases are clear.No acute osseous abnormality.Stomach and proximal small bowel appear normal.Mildly decreased attenuation in the tail of the pancreas with questionable edema.Liver, spleen and adrenal glands are unremarkable.Status post cholecystectomy.No biliary dilatation.Homogeneous enhancement of the kidneys without hydronephrosis or hydroureter.No urinary calculus identified.Urinary bladder is unremarkable.Unremarkable appearance of the small and large bowel.No evidence of acute appendicitis.Reproductive structures are unremarkable.No pneumoperitoneum.No free intra-abdominal fluid.No adenopathy.IMPRESSION:1. 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 Small amount of reconstitution of flow in the left external iliac artery. Present but diminished flow in the left common femoral, superficial femoral and profunda femoral arteries. Flow visualized within the left popliteal artery and the trifurcated arterial structures in the left lower extremity.2. Mildly decreased attenuation in the tail of the pancreas with questionable marginal edema. Recommend correlation for signs/symptoms of acute pancreatitis.THIS IS AN ELECTRONICALLY VERIFIED FINAL [id number]/02/2023 9:28 PM - Electronically signed by Brad Canchola MD
[2023-08-02] MEDS: PULMICORT NEB TX 0.5 MG NEB SCH (21:45)
[2023-08-02] MEDS: DILAUDID INJ IVP PRN (22:17)
[2023-08-03] MEDS ORDERED: HEPARIN SODIUM INJ 5000 UNITS IVP ONE (04:08)
[2023-08-03] MEDS ORDERED: HEPARIN SODIUM INJ 5000 UNITS ONE ×2 (04:10→13:11)
[2023-08-03] MEDS: SYNTHROID 125 mcg TAB PO SCH (08:17)
[2023-08-03] MEDS: LIPITOR TAB 40 MG PO SCH (08:19)
[2023-08-03] MEDS: LR 1,000 ML IV 1,000 ML IV SCH ×3 (08:25→19:00)
[2023-08-03] MEDS: ASPIRIN EC 81 MG PO SCH (08:25)
[2023-08-03] MEDS: VASOTEC TAB 5 MG PO SCH ×2 (08:26→21:46)
[2023-08-03] MEDS: DILANTIN CAP 100 MG EXT REL PO SCH ×2 (10:46→21:40)
[2023-08-03] MEDS ORDERED: HIBICLENS WASH ONE (12:00)
[2023-08-03] MEDS ORDERED: LR 1,000 ML IV 1,000 ML IV ONE (12:25)
[2023-08-03] MEDS ORDERED: ANCEF VIAL 1 GRAM ONE (12:25)
[2023-08-03] MEDS ORDERED: NS 100 ML IV 100 ML ONE (12:25)
[2023-08-03] MEDS ORDERED: FENTANYL VIAL INJ 100 mcg ONE (12:37)
[2023-08-03] MEDS ORDERED: VERSED ONE (12:37)
[2023-08-03] MEDS ORDERED: DIPRIVAN VIAL 20 ML ONE ×2 (12:38→14:03)
[2023-08-03] MEDS ORDERED: MARCAINE 0.5% ONE (12:43)
[2023-08-03] MEDS ORDERED: HEPARIN SODIUM IN D5W 75,000 UNITS/1,500 ML BAG ONE (12:43)
[2023-08-03] MEDS ORDERED: KETAMINE 50 MG/5 ML-NACL SYRNG ONE (13:23)
[2023-08-03] MEDS ORDERED: VISIPAQUE 50 ML ONE (13:34)
[2023-08-03] MEDS ORDERED: VISIPAQUE 100 ML ONE (13:34)
[2023-08-03] MEDS ORDERED: EPHEDRINE SULFATE INJ ONE (13:47)
[2023-08-03] MEDS ORDERED: HEPARIN SODIUM IN D5W 25,000 UNITS/500 ML BAG ONE (14:03)
[2023-08-03] MEDS ORDERED: NS 500 ML IV 500 ML IV ONE ×2 (14:03→14:40)
[2023-08-03] MEDS ORDERED: ACTIVASE CATHFLO ONE (14:04)
[2023-08-03] MEDS: PULMICORT NEB TX 0.5 MG NEB SCH ×2 (14:08→20:52)
[2023-08-03] MEDS: PROVENTIL NEB TX 0.083% 2.5MG/ 3ML NEB SCH ×2 (14:08)
[2023-08-03] MEDS ORDERED: NEO-SYNEPHRINE INJ ONE (14:12)
[2023-08-03] MEDS: ACTIVASE CATHFLO 12 MG in NS 250 ML IV 228 ML IV SCH (14:30)
[2023-08-03] MEDS ORDERED: HEPARIN SODIUM IN D5W 25,000 UNITS/500 ML BAG INTRACATH PRN (15:08)
[2023-08-03] MEDS ORDERED: ACTIVASE CATHFLO 12 MG in NS 250 ML IV 228 ML INTRACATH ONE ×4 (15:08)
--- NOTE | 2023-08-03 15:19 | OR.IMMED ---
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 Post-Op Diagnosis: same, in addition has occlusion of the proximal left superficial femoral artery with good run off to the left foot Procedure: diagnostic aortogram, arteriogram left leg , placement EKOS left iliac artery/ stent for thrombolysis Description of Procedure: see dictation Surgeon/Citizen Participation Specialist: Malathi Findings: Completely occluded left limb of the aorta bi-iliac endovascular graft, complete occlusion of the proximal left superficial femoral artery beginning at its takeoff from the common femoral artery Estimated Blood Loss: < 100 cc Complications: none Progress Notes: return to the ICU for thrombolysis and Heparin drip tonight, return to the operating room tomorrow for open left femoral endarterectomy, patch angioplasty, thrombectomy of the left iliac artery possible angioplasty left iliac artery stent , possible stent placement proximal left superficial femoral artery
[2023-08-03] MEDS: NS 500 ML IV 500 ML IV SCH (15:38)
[2023-08-03 15:48] LABS: BASOPHILS # (AUTO) 0.1 X10^3/uL (0.0-0.1); BASOPHILS % (AUTO) 1.7 % (0.2-1.0); EOSINOPHILS # (AUTO) 0.1 x10^3/uL (0.0-0.2); EOSINOPHILS % (AUTO) 0.9 % (0.9-2.9); HEMATOCRIT 39.5 % (42.0-54.0); HEMOGLOBIN 13.1 g/dL (13.5-18.0); LYMPHOCYTES # (AUTO) 3.1 X10^3/uL (1.3-2.9); LYMPHOCYTES % (AUTO) 42.7 % (21.0-51.0); MEAN CORPUSCULAR HEMOGLOBIN 30.7 pg (27.0-34.0); MEAN CORPUSCULAR HGB CONC 33.1 g/dL (33.0-35.0); MEAN CORPUSCULAR VOLUME 92.8 fL (80.0-100.0); MEAN PLATELET VOLUME 9.3 fL (7.4-11.0); MONOCYTES # (AUTO) 0.4 x10^3/uL (0.3-0.8); MONOCYTES % (AUTO) 6.1 % (0.0-13.0); NEUTROPHILS # (AUTO) 3.5 x10^3/uL (2.2-4.8); NEUTROPHILS % (AUTO) 48.6 % (42.0-75.0); PLATELET COUNT 138 X10^3/uL (150.0-450.0); RED BLOOD COUNT 4.26 X10^6/uL (4.7-6.0); RED CELL DISTRIBUTION WIDTH 16.5 % (11.6-16.5); WHITE BLOOD COUNT 7.3 X10^3/uL (3.6-10.0)
[2023-08-03] MEDS ORDERED: NS 500 ML IV 500 ML IV SCH (16:00)
[2023-08-03] MEDS: PERCOCET TAB 5/325 MG PO PRN ×2 (16:25→20:46)
[2023-08-03 21:38] LABS: HEMOGLOBIN 12.1 g/dL (13.5-18.0); PLATELET COUNT 120 X10^3/uL (150.0-450.0)
[2023-08-03 21:49] LABS: BASOPHILS % (AUTO) 0.3 % (0.2-1.0); EOSINOPHILS % (AUTO) 0.4 % (0.9-2.9); HEMATOCRIT 36.5 % (42.0-54.0); LYMPHOCYTES # (AUTO) 3.1 X10^3/uL (1.3-2.9); LYMPHOCYTES % (AUTO) 28.3 % (21.0-51.0); MEAN CORPUSCULAR HEMOGLOBIN 30.6 pg (27.0-34.0); MEAN CORPUSCULAR HGB CONC 33.3 g/dL (33.0-35.0); MEAN CORPUSCULAR VOLUME 91.9 fL (80.0-100.0); MEAN PLATELET VOLUME 9.5 fL (7.4-11.0); MONOCYTES % (AUTO) 9.1 % (0.0-13.0); NEUTROPHILS # (AUTO) 6.7 x10^3/uL (2.2-4.8); NEUTROPHILS % (AUTO) 61.9 % (42.0-75.0); RED BLOOD COUNT 3.97 X10^6/uL (4.7-6.0); RED CELL DISTRIBUTION WIDTH 16.5 % (11.6-16.5); WHITE BLOOD COUNT 10.8 X10^3/uL (3.6-10.0)
[2023-08-04] MEDS: PROVENTIL NEB TX 0.083% 2.5MG/ 3ML NEB SCH ×3 (00:26→18:17)
[2023-08-04] MEDS: ACTIVASE CATHFLO 12 MG in NS 250 ML IV 228 ML IV SCH (03:18)
[2023-08-04] MEDS: DILAUDID INJ IVP PRN (03:19)
[2023-08-04 03:34] LABS: HEMOGLOBIN 11.9 g/dL (13.5-18.0); RED BLOOD COUNT 3.83 X10^6/uL (4.7-6.0); RED CELL DISTRIBUTION WIDTH 16.3 % (11.6-16.5); WHITE BLOOD COUNT 9.6 X10^3/uL (3.6-10.0)
[2023-08-04 03:37] LABS: BASOPHILS # (AUTO) 0.1 X10^3/uL (0.0-0.1); BASOPHILS % (AUTO) 0.7 % (0.2-1.0); EOSINOPHILS % (AUTO) 0.5 % (0.9-2.9); HEMATOCRIT 34.8 % (42.0-54.0); LYMPHOCYTES # (AUTO) 2.7 X10^3/uL (1.3-2.9); LYMPHOCYTES % (AUTO) 28.2 % (21.0-51.0); MEAN CORPUSCULAR HGB CONC 34.1 g/dL (33.0-35.0); MEAN CORPUSCULAR VOLUME 90.9 fL (80.0-100.0); MEAN PLATELET VOLUME 8.8 fL (7.4-11.0); MONOCYTES % (AUTO) 9.9 % (0.0-13.0); NEUTROPHILS # (AUTO) 5.8 x10^3/uL (2.2-4.8); NEUTROPHILS % (AUTO) 60.7 % (42.0-75.0); PLATELET COUNT 98 X10^3/uL (150.0-450.0)
[2023-08-04] MEDS ORDERED: HIBICLENS WASH ONE (04:37)
[2023-08-04] MEDS ORDERED: NS 250 ML IV 500 ML IV ONE (04:57)
[2023-08-04] MEDS: SYNTHROID 125 mcg TAB PO SCH (05:58)
[2023-08-04] MEDS: NS 500 ML IV 500 ML IV SCH (08:06)
[2023-08-04] MEDS: LIPITOR TAB 40 MG PO SCH (08:07)
[2023-08-04] MEDS: ASPIRIN EC 81 MG PO SCH (08:07)
[2023-08-04] MEDS: VASOTEC TAB 5 MG PO SCH ×2 (08:07→20:59)
[2023-08-04] MEDS: LR 1,000 ML IV 1,000 ML IV SCH ×2 (08:07→20:21)
[2023-08-04] MEDS: PULMICORT NEB TX 0.5 MG NEB SCH ×2 (09:02→20:29)
[2023-08-04] MEDS: DILANTIN CAP 100 MG EXT REL PO SCH ×2 (09:17→20:19)
[2023-08-04] MEDS: PERCOCET TAB 5/325 MG PO PRN ×2 (09:18→21:35)
[2023-08-04] MEDS ORDERED: VERSED ONE ×2 (09:28→10:18)
[2023-08-04 09:31] LABS: BASOPHILS % (AUTO) 0.5 % (0.2-1.0); EOSINOPHILS % (AUTO) 0.2 % (0.9-2.9); HEMATOCRIT 39.4 % (42.0-54.0); LYMPHOCYTES # (AUTO) 2.8 X10^3/uL (1.3-2.9); LYMPHOCYTES % (AUTO) 30.3 % (21.0-51.0); MEAN CORPUSCULAR HEMOGLOBIN 30.7 pg (27.0-34.0); MEAN CORPUSCULAR HGB CONC 32.9 g/dL (33.0-35.0); MEAN CORPUSCULAR VOLUME 93.3 fL (80.0-100.0); MEAN PLATELET VOLUME 8.8 fL (7.4-11.0); MONOCYTES # (AUTO) 0.9 x10^3/uL (0.3-0.8); MONOCYTES % (AUTO) 9.8 % (0.0-13.0); NEUTROPHILS # (AUTO) 5.4 x10^3/uL (2.2-4.8); NEUTROPHILS % (AUTO) 59.2 % (42.0-75.0); PLATELET COUNT 101 X10^3/uL (150.0-450.0); RED BLOOD COUNT 4.23 X10^6/uL (4.7-6.0); RED CELL DISTRIBUTION WIDTH 16.6 % (11.6-16.5); WHITE BLOOD COUNT 9.2 X10^3/uL (3.6-10.0)
[2023-08-04] MEDS ORDERED: NS 500 ML IV 500 ML IV ONE (09:34)
[2023-08-04] MEDS ORDERED: NS 1,000 ML IV 1,000 ML ONE ×2 (09:34→15:09)
[2023-08-04] MEDS ORDERED: LR 1,000 ML IV 1,000 ML IV ONE (09:36)
[2023-08-04] MEDS ORDERED: ANCEF VIAL 1 GRAM ONE (09:36)
[2023-08-04] MEDS ORDERED: NS 100 ML IV 100 ML ONE (09:36)
[2023-08-04] MEDS ORDERED: MARCAINE/EPINEPHRINE ONE (09:39)
[2023-08-04] MEDS ORDERED: HEPARIN SODIUM IN D5W 75,000 UNITS/1,500 ML BAG ONE (09:40)
[2023-08-04] MEDS ORDERED: QUELICIN (OR ANECTINE) ONE (10:17)
[2023-08-04] MEDS ORDERED: ZEMURON 100 MG VIAL ONE (10:17)
[2023-08-04] MEDS ORDERED: DILAUDID INJ ONE (10:17)
[2023-08-04] MEDS ORDERED: AMIDATE INJ 40 MG VIAL ONE (10:17)
[2023-08-04] MEDS ORDERED: NEO-SYNEPHRINE INJ ONE ×2 (10:20→13:02)
[2023-08-04] MEDS ORDERED: PROTAMINE SULFATE 50 MG VIAL ONE (10:27)
[2023-08-04] MEDS ORDERED: SUPRANE ONE (10:27)
[2023-08-04] MEDS ORDERED: KETAMINE 50 MG/5 ML-NACL SYRNG ONE (10:35)
[2023-08-04] MEDS ORDERED: HEPARIN SODIUM INJ 5000 UNITS ONE (11:48)
[2023-08-04] MEDS ORDERED: VISIPAQUE 100 ML ONE (12:51)
[2023-08-04] MEDS ORDERED: PEPCID 20 MG VIAL ONE (13:15)
[2023-08-04] MEDS ORDERED: ZOFRAN INJ 4 MG VIAL ONE (13:15)
[2023-08-04] MEDS ORDERED: FENTANYL VIAL INJ 100 mcg ONE (13:38)
[2023-08-04] MEDS ORDERED: BRIDION ONE (13:47)
[2023-08-04] MEDS ORDERED: REGLAN INJ 10 MG VIAL IVP PRN (14:10)
[2023-08-04] MEDS ORDERED: DILAUDID INJ IVP PRN (14:10)
[2023-08-04] MEDS ORDERED: BARHEMSYS INJ IVP PRN (14:10)
[2023-08-04] MEDS ORDERED: ZOFRAN INJ 4 MG VIAL IVP PRN (14:10)
[2023-08-04] MEDS ORDERED: BENADRYL INJ 50 MG VIAL IVP PRN (14:10)
--- NOTE | 2023-08-04 14:31 | OR.IMMED ---
IMMEDIATE POST-OP NOTE Immediate Post-Op Note Date of surgery/procedure: 08/04/23 Pre-Op Diagnosis: critical limb threatening ischemia left leg Post-Op Diagnosis: same Procedure: left femoral endarterectomy and patch angioplasty( very difficult due to previous surgery and scar) , thrombectomy left iliac artery/stent , angioplasty left iliac artery stent, arteriogram left leg. Description of Procedure: see operative summary Surgeon/Operations Liaison: Malathi Findings: occluded left common femoral artery, thrombus in distal left iliac artery stent after overnight thrombolysis , no obvious stenosis of the takeoff of the left superficial femoral artery. Specimens Removed: plaque and thrombus Estimated Blood Loss: 900 cc Complications: none Progress Notes: To PACU then ICU. Warm left foot with palpable pulse. Stop heparin, Begin Eliquis
[2023-08-04] MEDS ORDERED: NS 1,000 ML IV 1,000 ML IV ONE ×2 (15:15→17:10)
[2023-08-04 17:29] LABS: BASOPHILS # (AUTO) 0.1 X10^3/uL (0.0-0.1)
[2023-08-04 17:32] LABS: BASOPHILS % (AUTO) 0.7 % (0.2-1.0); EOSINOPHILS % (AUTO) 0.1 % (0.9-2.9); HEMATOCRIT 31.4 % (42.0-54.0); HEMOGLOBIN 10.6 g/dL (13.5-18.0); LYMPHOCYTES # (AUTO) 1.9 X10^3/uL (1.3-2.9); LYMPHOCYTES % (AUTO) 22.2 % (21.0-51.0); MEAN CORPUSCULAR HEMOGLOBIN 30.9 pg (27.0-34.0); MEAN CORPUSCULAR HGB CONC 33.8 g/dL (33.0-35.0); MEAN CORPUSCULAR VOLUME 91.4 fL (80.0-100.0); MONOCYTES # (AUTO) 0.9 x10^3/uL (0.3-0.8); NEUTROPHILS # (AUTO) 5.7 x10^3/uL (2.2-4.8); PLATELET COUNT 67 X10^3/uL (150.0-450.0); RED BLOOD COUNT 3.43 X10^6/uL (4.7-6.0); RED CELL DISTRIBUTION WIDTH 16.6 % (11.6-16.5); WHITE BLOOD COUNT 8.6 X10^3/uL (3.6-10.0)
[2023-08-04] MEDS: ELIQUIS PO SCH (20:19)
[2023-08-05] MEDS: PROVENTIL NEB TX 0.083% 2.5MG/ 3ML NEB SCH ×4 (00:19→17:27)
[2023-08-05] MEDS: LR 1,000 ML IV 1,000 ML IV SCH ×4 (01:05→22:50)
[2023-08-05 04:52] LABS: BASOPHILS % (AUTO) 0.3 % (0.2-1.0); HEMOGLOBIN 8.9 g/dL (13.5-18.0); LYMPHOCYTES # (AUTO) 1.9 X10^3/uL (1.3-2.9); MEAN PLATELET VOLUME 9.3 fL (7.4-11.0)
[2023-08-05 04:56] LABS: EOSINOPHILS % (AUTO) 0.2 % (0.9-2.9); HEMATOCRIT 25.9 % (42.0-54.0); LYMPHOCYTES % (AUTO) 19.2 % (21.0-51.0); MEAN CORPUSCULAR HGB CONC 34.5 g/dL (33.0-35.0); MEAN CORPUSCULAR VOLUME 90.1 fL (80.0-100.0); MONOCYTES % (AUTO) 10.5 % (0.0-13.0); NEUTROPHILS # (AUTO) 6.8 x10^3/uL (2.2-4.8); NEUTROPHILS % (AUTO) 69.8 % (42.0-75.0); PLATELET COUNT 56 X10^3/uL (150.0-450.0); RED BLOOD COUNT 2.87 X10^6/uL (4.7-6.0); RED CELL DISTRIBUTION WIDTH 16.9 % (11.6-16.5); WHITE BLOOD COUNT 9.8 X10^3/uL (3.6-10.0)
[2023-08-05 05:00] LABS: BLOOD UREA NITROGEN 4 mg/dL (7-18); CALCIUM 6.9 mg/dL (8.5-10.1); CARBON DIOXIDE 26.2 mmol/L (21-32); CHLORIDE 104 mmol/L (98-107); COR NA(FOR HYPERGLY) 137 mmol/L (136-145); CREATININE 0.71 mg/dL (0.70-1.30); GLUCOSE 116 mg/dL (65-99); POTASSIUM 3.5 mmol/L (3.5-5.1); SODIUM 137 mmol/L (136-145); eGFR NON BLACK RACES > 60 (>60)
[2023-08-05] MEDS: PERCOCET TAB 5/325 MG PO PRN ×3 (05:02→18:42)
[2023-08-05] MEDS: SYNTHROID 125 mcg TAB PO SCH (06:01)
[2023-08-05] MEDS: ASPIRIN EC 81 MG PO SCH (08:18)
[2023-08-05] MEDS: DILANTIN CAP 100 MG EXT REL PO SCH ×2 (08:18→20:17)
[2023-08-05] MEDS: ELIQUIS PO SCH ×2 (08:18→20:17)
[2023-08-05] MEDS: PULMICORT NEB TX 0.5 MG NEB SCH ×3 (09:00→21:06)
[2023-08-05] MEDS: VASOTEC TAB 5 MG PO SCH (10:29)
[2023-08-05] MEDS: LIPITOR TAB 40 MG PO SCH ×2 (10:29→20:17)
--- NOTE | 2023-08-05 15:55 | NOTE.SOAP ---
Soap Note Note for Day of Date of Exam: 08/05/23 Subjective Data Subjective Data: POD # 1 , Left foot warm with good doppler signals and dressing intact left groin. Objective Data Pulse Rate: 98 Blood Pressure: 102/59 O2 Sat by Pulse Oximetry: 96 Objective Data: as above , Hgb= 8.9, Cr=0.71 Assessment Assessment: POD # 1 after endarterectomy left femoral artery with patch and angioplasty left iliac stent. Plan Plan: d/c samara and labs in AM
[2023-08-05] MEDS: COLACE CAP 100 MG PO SCH (20:17)
[2023-08-06] MEDS: PROVENTIL NEB TX 0.083% 2.5MG/ 3ML NEB SCH ×3 (01:22→14:44)
[2023-08-06] MEDS: PERCOCET TAB 5/325 MG PO PRN ×3 (01:54→16:50)
[2023-08-06 05:17] LABS: BASOPHILS % (AUTO) 0.4 % (0.2-1.0); EOSINOPHILS % (AUTO) 0.1 % (0.9-2.9); HEMATOCRIT 23.7 % (42.0-54.0); LYMPHOCYTES # (AUTO) 2.5 X10^3/uL (1.3-2.9); LYMPHOCYTES % (AUTO) 21.2 % (21.0-51.0); MEAN CORPUSCULAR HEMOGLOBIN 30.7 pg (27.0-34.0); MEAN CORPUSCULAR HGB CONC 33.9 g/dL (33.0-35.0); MEAN CORPUSCULAR VOLUME 90.4 fL (80.0-100.0); MEAN PLATELET VOLUME 9.7 fL (7.4-11.0); MONOCYTES # (AUTO) 1.4 x10^3/uL (0.3-0.8); MONOCYTES % (AUTO) 11.4 % (0.0-13.0); NEUTROPHILS % (AUTO) 66.9 % (42.0-75.0); PLATELET COUNT 61 X10^3/uL (150.0-450.0); RED BLOOD COUNT 2.62 X10^6/uL (4.7-6.0); RED CELL DISTRIBUTION WIDTH 16.5 % (11.6-16.5); WHITE BLOOD COUNT 11.9 X10^3/uL (3.6-10.0)
[2023-08-06] MEDS: SYNTHROID 125 mcg TAB PO SCH (06:04)
[2023-08-06] MEDS: ELIQUIS PO SCH ×2 (09:21→21:15)
[2023-08-06] MEDS: DILANTIN CAP 100 MG EXT REL PO SCH ×2 (09:22→21:15)
[2023-08-06] MEDS: ASPIRIN EC 81 MG PO SCH (09:22)
[2023-08-06] MEDS: LR 1,000 ML IV 1,000 ML IV SCH ×3 (09:24→22:27)
[2023-08-06] MEDS: PULMICORT NEB TX 0.5 MG NEB SCH ×2 (14:43→20:14)
[2023-08-06] MEDS: COLACE CAP 100 MG PO SCH (21:15)
[2023-08-06] MEDS: LIPITOR TAB 40 MG PO SCH (21:15)
[2023-08-07] MEDS: PERCOCET TAB 5/325 MG PO PRN ×2 (00:14→06:13)
[2023-08-07] MEDS: LR 1,000 ML IV 1,000 ML IV SCH (02:41)
[2023-08-07] MEDS: PROVENTIL NEB TX 0.083% 2.5MG/ 3ML NEB SCH ×3 (05:05→09:06)
[2023-08-07] MEDS: SYNTHROID 125 mcg TAB PO SCH (06:13)
[2023-08-07] MEDS: ASPIRIN EC 81 MG PO SCH (08:43)
[2023-08-07] MEDS: DILANTIN CAP 100 MG EXT REL PO SCH (08:43)
[2023-08-07] MEDS: ELIQUIS PO SCH (08:43)
[2023-08-07] MEDS: PULMICORT NEB TX 0.5 MG NEB SCH (09:06)
[2023-08-07 09:32] VITALS: TEMP 98.9
--- NOTE | 2023-08-07 09:32 | NOTE.SOAP ---
Soap Note Note for Day of Date of Exam: 08/06/23 Subjective Data Subjective Data: POD # 2 after Left femoral endarterectomy with patch angioplasty, embolectomy of the left iliac artery and balloon angioplasty left iliac artery stent. Doing well. Left foot warm. Vitals are stable. Objective Data Pulse Rate: 86 Respiratory Rate: 9 Blood Pressure: 106/85 O2 Sat by Pulse Oximetry: 96 Objective Data: Left foot warm. Excelllent doppler signal at the ankle. Left groin incision int act with no swelling or hematoma. Hgb=8.0 Assessment Assessment: Post-op day two after left femoral endarterectomy with re- establishment of flow to the left foot. Plan Plan: Encouraging to be out of bed.
[2023-08-07 10:05] VITALS: O2SAT 95
--- NOTE | 2023-08-07 11:04 | W.DIS.FURT ---
Summary of Discharge Discharge Summary of Date Date of Exam: 08/07/23 Admission Date Date of Admission: 08/02/23 Admission Diagnosis Hospital Course: 62 year old male with significant peripheral vascular disease who has had endovascular stenting of a distal aortic stenosis as well as arterial invention of the right leg. 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 Patient known to have some left-sided arterial disease after infrarenal aortic stetning . He presented acutely with ischemia of the left leg and was admitted on August 02 for Heparin drip. On August 03 he was taken to the operating suite and arteriogram via the left femoral artery showed the left limb of the endovascular graft completely occluded. Patient then had arteriogram from the ankle via the posterior tibial artery showing occlusion of the proximal left superficial femoral artery. I could get through the obstruction in the common femoral artery From Below. Therefore we stopped and brought him back the following day where he underwent endarterectomy of the left common femoral artery with patch angioplasty. He underwent thrombolysis overnight prior to this and embolectomy at the time only revealed very little clot and we documented excellent flow to the left iliac artery stent with moderate stenosis at its take off from the aorta. This was ballooned from the ankle. After the patch was placed arteriogram showed the occlusion of The Superficial femoral artery was resolved. The patient did receive one unit of blood during the case. His hemoglobin is 8.0 G of the time of discharge.He is doing well with a warm left leg with good doppler signals at the ankle and an intact incision in the left groin with no hematoma. He will be discharged home on his usual home medications including Eliquis 5 mg BID and aspirin 81 mg daily. He will follow up with me in one week. Vital Signs: Vital Signs (72 hours) 08/05/23 15:54 08/07/23 09:31 08/04/23 09:41 Temperature 98.4 F Pulse Rate 98 H 86 74 Respiratory Rate 9 L 18 Blood Pressure 102/59 106/85 117/72 O2 Sat by Pulse Oximetry 96 96 98 Oxygen Delivery Method Room Air 08/04/23 10:27 08/04/23 14:01 08/04/23 14:06 Temperature 98.5 F Pulse Rate 98 H 94 H Respiratory Rate 16 16 16 Blood Pressure 98/65 99/67 O2 Sat by Pulse Oximetry 99 99 Oxygen Delivery Method Aerosol Face Tent Aerosol Face Tent 08/04/23 14:01 08/04/23 14:11 08/04/23 14:21 Temperature Pulse Rate 98 H 96 H 98 H Respiratory Rate 16 16 18 Blood Pressure 98/65 108/66 112/68 O2 Sat by Pulse Oximetry 99 Oxygen Delivery Method Nasal Cannula 08/04/23 14:31 08/04/23 14:11 08/04/23 14:16 Temperature Pulse Rate 86 96 H 96 H Respiratory Rate 18 16 16 Blood Pressure 101/60 89/62 108/66 O2 Sat by Pulse Oximetry 99 99 99 Oxygen Delivery Method Nasal Cannula Nasal Cannula Nasal Cannula 08/04/23 14:21 08/04/23 14:26 08/04/23 14:31 Temperature Pulse Rate 91 H 98 H 91 H Respiratory Rate 18 18 18 Blood Pressure 112/60 112/60 101/68 O2 Sat by Pulse Oximetry 99 Oxygen Delivery Method Nasal Cannula 08/04/23 14:36 08/04/23 14:41 08/04/23 14:41 Temperature Pulse Rate 87 88 88 Respiratory Rate 18 18 18 Blood Pressure 107/64 93/52 93/52 O2 Sat by Pulse Oximetry 99 99 Oxygen Delivery Method Nasal Cannula Nasal Cannula 08/04/23 14:53 08/04/23 14:53 08/04/23 15:00 Temperature Pulse Rate 96 H Respiratory Rate 17 Blood Pressure 93/67 84/66 O2 Sat by Pulse Oximetry 96 Oxygen Delivery Method 08/04/23 15:00 08/04/23 15:15 08/04/23 15:30 Temperature Pulse Rate 94 H 99 H 81 Respiratory Rate 12 12 15 Blood Pressure O2 Sat by Pulse Oximetry 95 96 98 Oxygen Delivery Method 08/04/23 15:33 08/04/23 15:33 08/04/23 15:45 Temperature Pulse Rate 82 77 Respiratory Rate 13 14 Blood Pressure 97/69 O2 Sat by Pulse Oximetry 98 100 Oxygen Delivery Method 08/04/23 16:00 08/04/23 16:00 08/04/23 16:15 Temperature 98.4 F Pulse Rate 78 81 Respiratory Rate 18 18 Blood Pressure 111/70 O2 Sat by Pulse Oximetry 100 98 Oxygen Delivery Method 08/04/23 16:30 08/04/23 16:45 08/04/23 17:00 Temperature Pulse Rate 82 79 36 L Respiratory Rate 19 16 17 Blood Pressure O2 Sat by Pulse Oximetry 96 97 97 Oxygen Delivery Method 08/04/23 17:01 08/04/23 17:01 08/04/23 17:15 Temperature 98.1 F Pulse Rate 83 79 Respiratory Rate 14 17 Blood Pressure 86/53 O2 Sat by Pulse Oximetry 99 98 Oxygen Delivery Method 08/04/23 17:17 08/04/23 17:17 08/04/23 17:29 Temperature Pulse Rate 79 69 Respiratory Rate 16 14 Blood Pressure 87/62 O2 Sat by Pulse Oximetry 100 99 Oxygen Delivery Method 08/04/23 17:29 08/04/23 17:30 08/04/23 17:45 Temperature Pulse Rate 77 77 Respiratory Rate 16 20 Blood Pressure 97/65 O2 Sat by Pulse Oximetry 100 100 Oxygen Delivery Method 08/04/23 18:00 08/04/23 18:00 08/04/23 18:15 Temperature 97.9 F Pulse Rate 71 85 Respiratory Rate 17 19 Blood Pressure 114/72 O2 Sat by Pulse Oximetry 100 97 Oxygen Delivery Method 08/04/23 19:00 08/04/23 19:44 08/04/23 18:30 Temperature 98 F Pulse Rate 77 79 Respiratory Rate 18 14 Blood Pressure O2 Sat by Pulse Oximetry 95 97 Oxygen Delivery Method Room Air 08/04/23 18:45 08/04/23 19:00 08/04/23 19:15 Temperature Pulse Rate 82 76 77 Respiratory Rate 20 18 16 Blood Pressure O2 Sat by Pulse Oximetry 95 96 95 Oxygen Delivery Method 08/04/23 19:30 08/04/23 19:45 08/04/23 20:00 Temperature Pulse Rate 80 81 79 Respiratory Rate 19 15 20 Blood Pressure 95/62 O2 Sat by Pulse Oximetry 96 96 98 Oxygen Delivery Method 08/04/23 20:30 08/04/23 21:00 08/04/23 21:00 Temperature Pulse Rate 87 77 Respiratory Rate 27 H 14 Blood Pressure 94/61 O2 Sat by Pulse Oximetry 98 97 Oxygen Delivery Method 08/04/23 21:35 08/04/23 22:00 08/04/23 22:00 Temperature Pulse Rate 80 Respiratory Rate 13 18 Blood Pressure 98/64 O2 Sat by Pulse Oximetry 94 L Oxygen Delivery Method 08/04/23 22:35 08/04/23 23:00 08/04/23 23:00 Temperature 98.0 F Pulse Rate 84 Respiratory Rate 12 16 Blood Pressure 101/63 101/63 O2 Sat by Pulse Oximetry 94 L Oxygen Delivery Method 08/05/23 00:00 08/05/23 00:00 08/05/23 01:00 Temperature Pulse Rate 87 85 Respiratory Rate 16 17 Blood Pressure 105/65 O2 Sat by Pulse Oximetry 95 94 L Oxygen Delivery Method 08/05/23 01:00 08/05/23 02:00 08/05/23 03:00 Temperature Pulse Rate 78 78 Respiratory Rate 14 17 Blood Pressure 94/61 104/61 O2 Sat by Pulse Oximetry 96 96 Oxygen Delivery Method 08/05/23 03:00 08/05/23 04:00 08/05/23 05:02 Temperature Pulse Rate 83 Respiratory Rate 10 L 13 Blood Pressure 104/65 104/65 O2 Sat by Pulse Oximetry 96 Oxygen Delivery Method 08/05/23 05:00 08/05/23 05:00 08/05/23 06:00 Temperature Pulse Rate 69 84 Respiratory Rate 15 18 Blood Pressure 103/61 O2 Sat by Pulse Oximetry 97 95 Oxygen Delivery Method 08/05/23 06:00 08/05/23 06:02 08/05/23 07:00 Temperature Pulse Rate Respiratory Rate 13 Blood Pressure 97/61 O2 Sat by Pulse Oximetry Oxygen Delivery Method Room Air 08/05/23 07:00 08/05/23 07:00 08/05/23 08:00 Temperature Pulse Rate 89 86 Respiratory Rate 17 Blood Pressure 95/63 O2 Sat by Pulse Oximetry 95 93 L Oxygen Delivery Method 08/05/23 08:00 08/05/23 09:00 08/05/23 09:00 Temperature Pulse Rate 85 Respiratory Rate Blood Pressure 87/57 94/56 O2 Sat by Pulse Oximetry 95 Oxygen Delivery Method 08/05/23 10:00 08/05/23 10:00 08/05/23 10:29 Temperature Pulse Rate 84 103 H Respiratory Rate Blood Pressure 100/62 O2 Sat by Pulse Oximetry 95 98 Oxygen Delivery Method 08/05/23 11:00 08/05/23 11:00 08/05/23 12:00 Temperature Pulse Rate 90 Respiratory Rate Blood Pressure 93/64 88/57 O2 Sat by Pulse Oximetry 95 Oxygen Delivery Method 08/05/23 12:00 08/05/23 11:50 08/05/23 12:50 Temperature 98.3 F Pulse Rate 95 H Respiratory Rate 16 14 Blood Pressure O2 Sat by Pulse Oximetry 93 L Oxygen Delivery Method 08/05/23 13:00 08/05/23 13:00 08/05/23 14:00 Temperature Pulse Rate 99 H 94 H Respiratory Rate Blood Pressure 91/56 O2 Sat by Pulse Oximetry 92 L 95 Oxygen Delivery Method 08/05/23 14:00 08/05/23 15:00 08/05/23 15:00 Temperature 98.5 F Pulse Rate 98 H Respiratory Rate Blood Pressure 99/54 102/59 O2 Sat by Pulse Oximetry 96 Oxygen Delivery Method 08/05/23 16:00 08/05/23 16:00 08/05/23 17:00 Temperature Pulse Rate 102 H Respiratory Rate Blood Pressure 100/55 111/58 O2 Sat by Pulse Oximetry 93 L Oxygen Delivery Method 08/05/23 17:00 08/05/23 18:00 08/05/23 18:01 Temperature Pulse Rate 82 95 H Respiratory Rate Blood Pressure 97/69 O2 Sat by Pulse Oximetry 94 L 95 Oxygen Delivery Method 08/05/23 18:01 08/05/23 18:42 08/05/23 19:00 Temperature Pulse Rate 108 H Respiratory Rate 20 Blood Pressure O2 Sat by Pulse Oximetry 80 L Oxygen Delivery Method Room Air 08/05/23 19:00 08/05/23 19:00 08/05/23 20:00 Temperature Pulse Rate 102 H Respiratory Rate Blood Pressure 92/54 95/54 O2 Sat by Pulse Oximetry 94 L Oxygen Delivery Method 08/05/23 20:00 08/05/23 19:42 08/05/23 21:06 Temperature Pulse Rate 103 H 94 H Respiratory Rate 20 Blood Pressure O2 Sat by Pulse Oximetry 94 L 100 Oxygen Delivery Method 08/05/23 21:00 08/05/23 21:00 08/05/23 22:00 Temperature Pulse Rate 92 H Respiratory Rate 21 Blood Pressure 95/59 100/57 O2 Sat by Pulse Oximetry 95 Oxygen Delivery Method 08/05/23 22:00 08/05/23 23:00 08/05/23 23:00 Temperature Pulse Rate 93 H 93 H Respiratory Rate Blood Pressure 94/59 O2 Sat by Pulse Oximetry 94 L 93 L Oxygen Delivery Method 08/06/23 00:00 08/06/23 00:00 08/06/23 01:00 Temperature 98.1 F Pulse Rate 91 H 87 Respiratory Rate Blood Pressure 99/58 O2 Sat by Pulse Oximetry 93 L 96 Oxygen Delivery Method 08/06/23 01:00 08/06/23 01:54 08/06/23 02:00 Temperature Pulse Rate 93 H Respiratory Rate 20 Blood Pressure 101/65 O2 Sat by Pulse Oximetry 94 L Oxygen Delivery Method 08/06/23 02:00 08/06/23 02:00 08/06/23 02:00 Temperature Pulse Rate 93 H Respiratory Rate Blood Pressure 100/64 100/64 O2 Sat by Pulse Oximetry 94 L Oxygen Delivery Method 08/06/23 02:54 08/06/23 02:00 08/06/23 03:00 Temperature Pulse Rate 88 Respiratory Rate 20 Blood Pressure 100/64 O2 Sat by Pulse Oximetry 91 L Oxygen Delivery Method 08/06/23 03:00 08/06/23 03:00 08/06/23 03:00 Temperature Pulse Rate 88 Respiratory Rate Blood Pressure 91/61 91/61 O2 Sat by Pulse Oximetry 91 L Oxygen Delivery Method 08/06/23 03:00 08/06/23 04:00 08/06/23 04:00 Temperature 98 F Pulse Rate 86 Respiratory Rate Blood Pressure 91/61 92/62 O2 Sat by Pulse Oximetry 95 Oxygen Delivery Method 08/06/23 05:00 08/06/23 05:00 08/06/23 06:00 Temperature Pulse Rate 85 Respiratory Rate Blood Pressure 95/61 103/61 O2 Sat by Pulse Oximetry 96 Oxygen Delivery Method 08/06/23 06:00 08/06/23 07:00 08/06/23 06:00 Temperature Pulse Rate 84 Respiratory Rate Blood Pressure 103/61 O2 Sat by Pulse Oximetry 98 Oxygen Delivery Method Room Air 08/06/23 07:00 08/06/23 07:00 08/06/23 08:00 Temperature Pulse Rate 90 Respiratory Rate Blood Pressure 99/61 100/63 O2 Sat by Pulse Oximetry 94 L Oxygen Delivery Method 08/06/23 08:00 08/06/23 09:21 08/06/23 10:21 Temperature Pulse Rate 90 Respiratory Rate 20 20 Blood Pressure O2 Sat by Pulse Oximetry 96 Oxygen Delivery Method 08/06/23 09:00 08/06/23 09:00 08/06/23 10:00 Temperature Pulse Rate 93 H 91 H Respiratory Rate Blood Pressure 109/65 O2 Sat by Pulse Oximetry 96 95 Oxygen Delivery Method 08/06/23 10:00 08/06/23 11:00 08/06/23 11:04 Temperature Pulse Rate 81 88 Respiratory Rate Blood Pressure 98/76 O2 Sat by Pulse Oximetry 94 L 95 Oxygen Delivery Method 08/06/23 11:04 08/06/23 12:00 08/06/23 12:00 Temperature Pulse Rate 86 Respiratory Rate Blood Pressure 92/57 94/62 O2 Sat by Pulse Oximetry 95 Oxygen Delivery Method 08/06/23 13:00 08/06/23 13:00 08/06/23 14:00 Temperature Pulse Rate 85 91 H Respiratory Rate Blood Pressure 95/59 O2 Sat by Pulse Oximetry 97 98 Oxygen Delivery Method 08/06/23 14:00 08/06/23 15:00 08/06/23 15:00 Temperature 97.9 F Pulse Rate 93 H Respiratory Rate Blood Pressure 106/61 97/61 O2 Sat by Pulse Oximetry 97 Oxygen Delivery Method 08/06/23 16:00 08/06/23 16:00 08/06/23 17:00 Temperature Pulse Rate 88 91 H Respiratory Rate Blood Pressure 91/62 O2 Sat by Pulse Oximetry 98 98 Oxygen Delivery Method 08/06/23 17:00 08/06/23 16:50 08/06/23 18:00 Temperature Pulse Rate Respiratory Rate 20 Blood Pressure 109/64 101/60 O2 Sat by Pulse Oximetry Oxygen Delivery Method 08/06/23 18:00 08/06/23 17:50 08/06/23 19:00 Temperature Pulse Rate 91 H Respiratory Rate 20 Blood Pressure O2 Sat by Pulse Oximetry 95 Oxygen Delivery Method Room Air 08/06/23 19:00 08/06/23 19:00 08/06/23 19:26 Temperature Pulse Rate 86 Respiratory Rate Blood Pressure 104/68 111/68 O2 Sat by Pulse Oximetry 97 Oxygen Delivery Method 08/06/23 19:26 08/06/23 20:00 08/06/23 20:00 Temperature 98.0 F Pulse Rate 86 88 Respiratory Rate 22 22 Blood Pressure 109/68 O2 Sat by Pulse Oximetry 97 96 Oxygen Delivery Method 08/06/23 21:00 08/06/23 21:00 08/06/23 22:00 Temperature Pulse Rate 87 Respiratory Rate 24 Blood Pressure 112/68 115/66 O2 Sat by Pulse Oximetry 96 Oxygen Delivery Method 08/06/23 22:00 08/06/23 23:00 08/06/23 23:00 Temperature Pulse Rate 85 86 Respiratory Rate 21 21 Blood Pressure 114/76 O2 Sat by Pulse Oximetry 97 97 Oxygen Delivery Method 08/07/23 00:14 08/07/23 00:00 08/07/23 00:00 Temperature 97.8 F Pulse Rate 81 Respiratory Rate 20 17 Blood Pressure 112/66 O2 Sat by Pulse Oximetry 97 Oxygen Delivery Method 08/07/23 01:00 08/07/23 01:00 08/07/23 02:00 Temperature Pulse Rate 87 79 Respiratory Rate 21 16 Blood Pressure 110/69 O2 Sat by Pulse Oximetry 93 L 94 L Oxygen Delivery Method 08/07/23 02:00 08/07/23 01:14 08/07/23 03:00 Temperature Pulse Rate 80 Respiratory Rate 18 19 Blood Pressure 110/61 O2 Sat by Pulse Oximetry 94 L Oxygen Delivery Method 08/07/23 03:00 08/07/23 04:00 08/07/23 04:00 Temperature 97.8 F Pulse Rate 82 Respiratory Rate 19 Blood Pressure 106/65 111/67 O2 Sat by Pulse Oximetry 95 Oxygen Delivery Method 08/07/23 05:00 08/07/23 05:00 08/07/23 06:00 Temperature Pulse Rate 80 72 Respiratory Rate 22 16 Blood Pressure 112/75 O2 Sat by Pulse Oximetry 96 99 Oxygen Delivery Method 08/07/23 06:00 08/07/23 06:13 08/07/23 07:00 Temperature Pulse Rate 82 Respiratory Rate 18 16 Blood Pressure 128/72 O2 Sat by Pulse Oximetry 96 Oxygen Delivery Method 08/07/23 07:00 08/07/23 07:13 08/07/23 08:00 Temperature 98.9 F Pulse Rate 88 Respiratory Rate 18 16 Blood Pressure 115/76 O2 Sat by Pulse Oximetry 96 Oxygen Delivery Method 08/07/23 08:00 08/07/23 09:00 08/07/23 09:02 Temperature Pulse Rate 74 86 Respiratory Rate 22 19 Blood Pressure 104/66 O2 Sat by Pulse Oximetry 95 96 Oxygen Delivery Method 08/07/23 09:02 08/07/23 07:00 Temperature Pulse Rate Respiratory Rate Blood Pressure 106/85 O2 Sat by Pulse Oximetry Oxygen Delivery Method Room Air Labs: Laboratory Last Values WBC 11.9 X10^3/uL (3.6-10.0) H 08/06/23 04:00 RBC 2.62 X10^6/uL (4.7-6.0) L 08/06/23 04:00 Hgb 8.0 g/dL (13.5-18.0) L 08/06/23 04:00 Hct 23.7 % (42.0-54.0) L 08/06/23 04:00 MCV 90.4 fL (80.0-100.0) 08/06/23 04:00 MCH 30.7 pg (27.0-34.0) 08/06/23 04:00 MCHC 33.9 g/dL (33.0-35.0) 08/06/23 04:00 RDW 16.5 % (11.6-16.5) 08/06/23 04:00 Plt Count 61 X10^3/uL (150.0-450.0) L 08/06/23 04:00 MPV 9.7 fL (7.4-11.0) 08/06/23 04:00 Neut % (Auto) 66.9 % (42.0-75.0) 08/06/23 04:00 Lymph % (Auto) 21.2 % (21.0-51.0) 08/06/23 04:00 Alfalfa % (Auto) 11.4 % (0.0-13.0) 08/06/23 04:00 Eos % (Auto) 0.1 % (0.9-2.9) L 08/06/23 04:00 Baso % (Auto) 0.4 % (0.2-1.0) 08/06/23 04:00 Neut # (Auto) 8.0 x10^3/uL (2.2-4.8) H 08/06/23 04:00 Lymph # (Auto) 2.5 X10^3/uL (1.3-2.9) 08/06/23 04:00 Alfalfa # (Auto) 1.4 x10^3/uL (0.3-0.8) H 08/06/23 04:00 Eos # (Auto) 0.0 x10^3/uL (0.0-0.2) 08/06/23 04:00 Baso # (Auto) 0.0 X10^3/uL (0.0-0.1) 08/06/23 04:00 Absolute Nucleated RBC 0.0 /100WBC 08/06/23 04:00 PT 13.4 SECONDS (11.8-14.3) 08/02/23 18:30 INR Target Range - 08/02/23 18:30 INR 1.04 (0.8-1.3) 08/02/23 18:30 APTT 57.7 SECONDS (22.9-36.5) H 08/04/23 09:17 PTT Comment - 08/04/23 09:17 Fibrinogen 192 mg/dL (239-489) L 08/04/23 09:17 Sodium 137 mmol/L (136-145) 08/05/23 04:14 Corrected Sodium 137 mmol/L (136-145) 08/05/23 04:14 Potassium 3.5 mmol/L (3.5-5.1) 08/05/23 04:14 Chloride 104 mmol/L (98-107) 08/05/23 04:14 Carbon Dioxide 26.2 mmol/L (21-32) 08/05/23 04:14 BUN 4 mg/dL (7-18) L 08/05/23 04:14 Creatinine 0.71 mg/dL (0.70-1.30) 08/05/23 04:14 Est GFR (MDRD) Af Amer > 60 (>60) 08/05/23 04:14 Est GFR (MDRD) Non-Af > 60 (>60) 08/05/23 04:14 Glucose 116 mg/dL (65-99) H 08/05/23 04:14 Calcium 6.9 mg/dL (8.5-10.1) L 08/05/23 04:14 Corrected Calcium TNP 08/02/23 18:30 Total Bilirubin 0.20 mg/dL (0.2-1.0) 08/02/23 18:30 AST 21 Units/L (15-37) 08/02/23 18:30 ALT 30 Units/L (12-78) 08/02/23 18:30 Alkaline Phosphatase 85 Units/L (46-116) 08/02/23 18:30 Total Protein 7.1 g/dL (6.4-8.2) 08/02/23 18:30 Albumin 3.6 g/dL (3.4-5.0) 08/02/23 18:30 Globulin 3.5 g/dL (2.5-4.5) 08/02/23 18:30 Albumin/Globulin Ratio 1.0 Ratio (1.1-2.1) L 08/02/23 18:30 Blood Type A POSITIVE 08/03/23 15:34 Antibody Screen Negative 08/03/23 15:34 Crossmatch See Detail 08/03/23 15:34 Reason For Visit: ISHHEMIC LEFT EXTREMETY Discharge Date Discharge Date: 08/07/23 Discharge Diagnosis All Active Problems (Updated 08/07/23 @ 11:02 by Ray Servin) Atherosclerosis of [place] arteries of extremities with rest pain, left leg (Acute) Pallor of extremity (Acute) Low TSH level (Acute) Prediabetes (Acute) Elevated hemoglobin A1c (Acute) Encounter for monitoring opioid maintenance therapy (Acute) Hypothyroidism, acquired (Chronic) Neuralgia of right foot (Acute) Aneurysm of right groin artery (Acute) Positive blood cultures (Acute) Aneurysm of right femoral artery (Acute) Abscess of right groin (Acute) Right groin pain (Chronic) Encounter for wound care (Acute) History of recent blood transfusion (Acute) Anemia (Acute) Thyroid disease (Chronic) Pulmonary disease (Chronic) GERD (gastroesophageal reflux disease) (Chronic) DJD (degenerative joint disease) (Chronic) Hematoma of groin (Acute) Acute hyponatremia (Acute) Hematoma following procedure (Acute) Chronic obstructive bronchitis (Chronic) Hypertension (Chronic) Plan of Treatment: Continue with present treatment and follow up plan. Pt is to keep follow up appointment as instructed and take medications as ordered. Discharge Medications Discharge Medications: chocolate flavor Adverse Reaction (Verified 07/11/23 19:31) RASH tomato Adverse Reaction (Verified 07/11/23 19:31) RASH CONTINUE taking the following medications apixaban 5 mg tablet (Eliquis) 5 mg PO BID 08/02/23 [History] aspirin 81 mg po daily Discharge Disposition Assessment: see hospital course Discharge Plan Discharge Plan Hospital Course: 62 year old male with significant peripheral vascular disease who has had endovascular stenting of a distal aortic stenosis as well as arterial invention of the right leg. 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 Patient known to have some left-sided arterial disease after infrarenal aortic stetning . He presented acutely with ischemia of the left leg and was admitted on August 02 for Heparin drip. On August 03 he was taken to the operating suite and arteriogram via the left femoral artery showed the left limb of the endovascular graft completely occluded. Patient then had arteriogram from the ankle via the posterior tibial artery showing occlusion of the proximal left superficial femoral artery. I could get through the obstruction in the common femoral artery From Below. Therefore we stopped and brought him back the following day where he underwent endarterectomy of the left common femoral artery with patch angioplasty. He underwent thrombolysis overnight prior to this and embolectomy at the time only revealed very little clot and we documented excellent flow to the left iliac artery stent with moderate stenosis at its take off from the aorta. This was ballooned from the ankle. After the patch was placed arteriogram showed the occlusion of The Superficial femoral artery was resolved. The patient did receive one unit of blood during the case. His hemoglobin is 8.0 G of the time of discharge.He is doing well with a warm left leg with good doppler signals at the ankle and an intact incision in the left groin with no hematoma. He will be discharged home on his usual home medications including Eliquis 5 mg BID and aspirin 81 mg daily. He will follow up with me in one week. Patient Disposition: 01 HOME, SELF-CARE Condition: Stable Health Concerns: Post Hospitalization: new medications and changes needed to prevent readmission or further decline. Pt educated and given instructions on all concerns. Care Plan Goals: Problem: Pain/Alteration in Comfort Goal: Improve/ Resolve Pain; Achieve Pain Tolerance Instructions: Take pain medications as prescribed. Contact your primary care provider if your pain is unrelieved or worsens. Follow up with primary care provider as directed. Plan of Treatment: Continue with present treatment and follow up plan. Pt is to keep follow up appointment as instructed and take medications as ordered. Assessment: see hospital course Prescription drug monitoring program results: PDMP reviewed and no concerns identified Prescriptions: New aspirin 81 mg tablet,chewable 81 mg PO QDAY Qty: 90 0RF oxycodone-acetaminophen [Percocet] 5-325 mg tablet 1 tab PO Q6H MDD 4 PRNQty: 30 0RF Continued atorvastatin 80 mg tablet 80 mg PO HS Qty: 30 2RF gabapentin 100 mg capsule See Rx Instructions PO QHS 30 Days Qty: 30 2RF Rx Instructions: 1 capsule orally every day at bedtime; levetiracetam [Keppra] 500 mg tablet 500 mg PO BID Qty: 60 2RF famotidine 40 mg tablet 40 mg PO QHS MDD 1 30 Days Qty: 30 2RF levothyroxine 125 mcg tablet 125 mcg PO QDAY MDD 1 30 Days Qty: 30 2RF Rx Instructions: Remind patient of dose change and need to repeat TSH in 10 to 12 weeks tramadol 50 mg tablet 50 mg PO TID MDD 3 PRN (Reason: pain (scale score 4-6)/joint and groin pain) 30 Days Qty: 90 0RF Eliquis 5 mg tablet 5 mg PO BID Follow ups/Referrals Follow ups/Referrals: Ray Srevin [STAFF PHYSICIAN] - 08/15/23 10:30 am Instructions Instructions: Anemia, Endovascular Therapy for Peripheral Vascular Disease, Care After Activity Restrictions/Additional Instructions: Leave dressing intact for seven days, keep dry, sponge bath until seen in office next Monday. No driving. Stand Alone Forms: Excuse From Work or School, Post Hospital Follow Up Care
[2023-08-07 11:28] VITALS: BP 107/57; PULSE 188; RESP 43
--- NOTE | 2023-08-08 12:55 | DR.OPNOTE ---
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 The the right groin and entire left leg were prepped and draped in sterile fashion. Patient was given intravenous sedation supervised by myself. Time out for the procedure obtained . Ultrasound used to identify the left femoral artery and this was noted to have poor flow. Ultrasound used to guide placement of local anesthesia and used to guide puncture of the left femoral artery and 0.012 inch wire placed. Incision made over the wire at the skin edge and a micro sheath d placed over the guide wire into the left femoral artery. This exchanged for a 5 Fr sheath . 0.035 inch Advantage glide wire was placed all the way through the left iliac occluded artery/ stent into the aorta and Omni catheter placed over this into the aorta and aortogram showed good flow in the aorta and patent endo vascular stent with intact flow of the right leg but the left limb of the endograft was completely occluded with reconstitution of the mid left superficial femoral artery . Arteriogram carried out of the left leg showing complete occlusion of the proximal superficial femoral artery from it's take off with reconstitution of the distal superficial femoral artery and popliteal artery and three vessel runoff. Ultrasound then used to identify the left posterior tibial artery and the skin overlying it infiltrated with 0.5% Marcaine . Ultrasound used to guide puncture of the Left posterior tibial artery and a 0.012-inch wire placed. Incision made over the wire with a # 11 knife blade and a micro sheath placed over the guide wire into the let posterior tibial artery . Arteriogram confirmed our placement . From the ankle, wire was taken across the occlusion of the superficial femoral artery but I could get across the common femoral artery occlusion . This patient had cut down here for placement of the aortic endograft graft. At this point we place the EKOS catheter over the guide wire in the left groin into the aorta across the other conclusion.. We removed the wire and placed the inner portion ultrasonic catheter and secured it . Patient bolused through the catheter with 3 mg of IV TPA. Drip of TPA though the catheter infused at 1 mg per hour and the device activated . Patient started on a total of 1000 units of heparin per hour dividing the dose between the left femoral and left ankle sheaths . Dressings applied to both the left groin and the left ankle. Patient returned to the ICU for overnight thrombolysis and careful monitoring. Plan to return to OR tomorrow for open left femoral endarterectomy and patch angioplasty , possible thrombectomy of the left iliac artery, and possible stenting of the proximal left iliac artery. Type of Anesthesia: Local (0.5% Marcaine) Anesthesia Comment: plus MAC Findings: completely occluded left iliac limb of endovascular aortic stenting, complete occlusion of the left proximal superficial femoral artery beginning at Type of Fluids Used:: Lactated Ringers Total Amount of Fluid Infused:: 800 cc Urine output: 600 cc EBL: < 100 cc Complications:: none Needle/Sponge Count:: correct Disposition/Condition: Pt. tolerated procedure without difficulty. Taken to SDS in stable condition.
--- NOTE | 2023-08-08 13:58 | DR.OPNOTE ---
OP NOTE Pre-Op Diagnosis: critical ischmia left leg, occluded left common femoral artery and proximal Post-Op Diagnosis: same Procedure Date Date Of Procedure: 08/04/23 Procedure: PROCEDURE : Left common femoral endarterectomy and Patch angioplasty, aortogram , Arteriogram left leg, thrombectomy of the left iliac artery with a Martin catheter, balloon angioplasty left iliac artery stent NARRATIVE : The patient was taken to the operative suite and placed in the supine position. General endotracheal anesthesia was induced. The entire left leg and lower abdomen were prepped and draped in sterile fashion. The patient already had a vascular sheath in the left femoral artery and in the left posterior tibial artery . Time out for the procedure obtained. Vertical incision was made in the left groin above and below the sheath .Sharp dissection carried out above where the sheath entered the femoral artery . This was a difficult to dissection due to significant scarring from the previous procedure and most of the dissection carried out with a number 15 knife blade . Twice I got into the femoral vein and both times this was repaired with interrupted 3-0 silk sutures. Dissection completed proximally and distally and vessel loops placed around the common femoral artery, profunda femoris artery and superficial femoral arteries. The patient given 3000 units of intravenous Heparin and after three minutes the common femoral artery clamped and the other vessels controlled with the vessel loops. #11 knife blade used to open from the common femoral artery through the plaque using Pott's scissors to complete this. Endarterectomy carried out with a [place] dissector removing all the dense plaque and complete occlusion. All floating material was removed. The intima at the takeoff of the superficial femoral artery was tacked down with interrupted 6-0 Prolene suture . # 4 Martin balloon catheter placed into the iliac artery and small amount of distal thrombus removed establishing excellent flow and pulse in the left iliac artery. All was irrigated well with heparin flush and the arteriotomy closed using at 8 mm wide Bovine pericardial patch using running 5-0 Prolene suture. On releasing the clamps the patient and no bleeding from the patch itself. At this point from the ankle we placed a wire through the endarterectomy into the iliac artery and aorta and aortogram showed excellent flow through the iliac artery stent on the left side with no residual thrombus with possible stenosis of the proximal portion of the left iliac artery endograft . Over the wire we placed a 7 mm angioplasty balloon and dilated open the area of the previously placed iliac stent . Arteriogram showing good results. Arteriogram of the take off the superficial femoral artery now showed it to be completely patent and open with no indication that anything would be needed. The patient was given 30 mg of IV Protamine. All bleeding controlled with electrocautery or suture ligation as necessary. Subcutaneous tissue closed with two running layers of 3-0 Vicryl and the skin closed with skin Jackson. The patient tolerated this well. Because of the blood loss the patient did receive one unit of packed red blood cells in addition to crystalloid and was stable the entire time. Patient was extubated and taken to the PACU in good condition and then to the ICU. Type of Anesthesia: General Anesthetic w/ETT Findings: small amount of thrombus left distal iliac artery, completely occluded left common femoral artery, resolved occlusion of proximal left superficial femoral artery after patch angioplasty of the left common femoral artery. Type of Fluids Used:: Lactated Ringers Total Amount of Fluid Infused:: plus 1 i=unit PRBC's EBL: 900 cc Complications:: none Needle/Sponge Count:: correct Disposition/Condition: Pt. tolerated procedure without difficulty. Extubated in the OR and taken to PACU and then to ICU in stable condition.
--- NOTE | 2023-08-11 09:26 | DR.UPDATE ---
H&P UPDATE Review Yes Any changes to H&P?: No Changes noted:: Patient admitted 08/03/2023 . See H& P from my office
== END 2023-08-07 11:15 | disposition home or self-care (01) | DRG 271 ==
LOC: ICU 17:32
PROVIDERS: ADMIT Surgery; ATTEND Surgery
DX: I25.10 Atherosclerotic heart disease of native coronary artery without angina pectoris; Z72.0 Tobacco use; G40.509 Epileptic seizures related to external causes, not intractable, without status epilepticus; Z85.038 Personal history of other malignant neoplasm of large intestine; E03.8 Other specified hypothyroidism; I70.222 Atherosclerosis of native arteries of extremities with rest pain, left leg; J44.9 Chronic obstructive pulmonary disease, unspecified